=== PATIENT | female | born 1945 | race Caucasian/White ===

== ENCOUNTER 2016-06-05 08:43 | Outpatient (CLI) | payer MEDICARE, OTHER | END 2016-06-05 08:44 | disposition home or self-care (01) | DX: R73.01 Impaired fasting glucose (principal); E78.5 Hyperlipidemia, unspecified ==

== ENCOUNTER 2016-06-22 15:23 | Outpatient (CLI) | payer MEDICARE, OTHER | END 2016-06-22 15:24 | disposition home or self-care (01) | DX: R07.89 Other chest pain (principal); R06.02 Shortness of breath; I10 Essential (primary) hypertension ==

== ENCOUNTER 2016-08-06 09:34 | Outpatient (CLI) | payer MEDICARE, OTHER | END 2016-08-06 09:35 | disposition home or self-care (01) | DX: G47.8 Other sleep disorders (principal); I10 Essential (primary) hypertension; R06.02 Shortness of breath; E66.01 Morbid (severe) obesity due to excess calories; J45.909 Unspecified asthma, uncomplicated | CPT/HCPCS: 99204; G0463 ==

== ENCOUNTER 2016-10-01 08:44 | Outpatient (CLI) | payer MEDICARE, OTHER ==
--- NOTE | 2016-10-06 16:59 | Mammography Report ---
DIGITAL SCREENING MAMMOGRAM: 10/01/2016 CLINICAL INDICATION: A 71-year-old for screening. COMPARISON: 11/2013, 12/2010, 09/2007. TECHNIQUE: Routine CC and MLO projections were obtained of the breasts as well as bilateral laterall y exaggerated craniocaudal views. FINDINGS: The breasts again demonstrate scattered fibroglandular densities. Coarse and punctate, ty pically benign calcifications are present. No suspicious masses, clustered microcalcifications, or r egions of architectural distortion are identified. IMPRESSION: BENIGN FINDINGS. RECOMMENDATION: Routine annual screening unless otherwise clinically indicated. BI-RADS category 2, benign findings. STANDARD QUALIFYING STATEMENTS 1. This examination was reviewed with the aid of Computer-Aided Detection (CAD). 2. A negative or benign imaging report should not delay biopsy if clinically suspicious findings are present. Consider surgical consultation if warranted. More than 5% of cancers are not identified by i maging. 3. Dense breasts may obscure an underlying neoplasm. JOB #: [id number] EXT JOB #:[id number]
== END 2016-10-01 08:45 | disposition home or self-care (01) ==
LOC: DI 08:44
PROVIDERS: ATTEND Family Medicine
DX: Z12.31 Encounter for screening mammogram for malignant neoplasm of breast (principal)
CPT/HCPCS: 77067

== ENCOUNTER 2017-01-21 08:37 | Day surgery (SDC) | payer MEDICARE, OTHER ==
[~2017-01-21 08:37] MED LIST: BRIMONIDINE 0.2% OPHTH DROPS 5 ML ONE; CYCLOPENTOLATE 1% OPHTH DROPS 2 ML ONE; KETOROLAC 0.45% OPHTH DROPS ONE; PHENYLEPHRINE 2.5% OPHTH 2 ML DROPS ONE; PROPARACAINE 0.5% OPHTH DROPS 15 ML ONE; TIMOLOL 0.5% OPHTH DROPS ONE
[2017-01-21] MEDS ORDERED: LACTATED RINGERS 500 ML IV ONE (08:42)
[2017-01-21] MEDS ORDERED: PHENYLEPHRINE 2.5% OPHTH 2 ML DROPS OPTH ONE (09:08)
[2017-01-21] MEDS ORDERED: PROPARACAINE 0.5% OPHTH DROPS 15 ML OPTH ONE ×2 (09:08→09:30)
[2017-01-21] MEDS ORDERED: KETOROLAC 0.45% OPHTH DROPS OPTH ONE (09:08)
[2017-01-21] MEDS ORDERED: CYCLOPENTOLATE 1% OPHTH DROPS 2 ML OPTH ONE (09:08)
[2017-01-21] MEDS ORDERED: EPINEPHrine 1 MG/ML AMP IVP ONE (09:29)
[2017-01-21] MEDS ORDERED: BRIMONIDINE 0.2% OPHTH DROPS 5 ML OPTH ONE (09:29)
[2017-01-21] MEDS ORDERED: CHONDR SULF/HYALURONATE SYRINGE IO ONE (09:30)
[2017-01-21] MEDS ORDERED: fentaNYL 100 MCG/2 ML VIAL IVP ONE ×2 (09:30)
[2017-01-21] MEDS ORDERED: BSS/LIDOCAINE/EPINEPHRINE 1 ML SYRINGE IO ONE (09:30)
[2017-01-21] MEDS ORDERED: MIDAZOLAM 2 MG/2 ML VIAL IVP ONE ×2 (09:30)
[2017-01-21] MEDS ORDERED: TIMOLOL 0.5% OPHTH DROPS OPTH ONE (09:30)
[2017-01-21] MEDS ORDERED: TRIAMCIN/MOXIFLOX/VANCO 1 ML VIAL IO ONE (09:31)
[2017-01-21] MEDS: ONDANSETRON 4 MG/2 ML VIAL ONE ×2 (09:48→10:16)
[2017-01-21] MEDS ORDERED: ONDANSETRON 4 MG/2 ML VIAL ONE (10:18)
[2017-01-21] MEDS ORDERED: DEXAMETHASONE 4 MG/ML VIAL ONE (10:18)
[2017-01-21 10:47] VITALS: BP 122/57
--- NOTE | 2017-01-21 11:39 | OPERATIVE REPORT ---
DATE OF SURGERY: 01/21/2017 00:00:00 PREOPERATIVE DIAGNOSIS: Visually significant cataract, left eye. This was her first cataract surgery. Also, this is an amblyopic eye with probable vision potential to count fingers only. POSTOPERATIVE DIAGNOSIS: Visually significant cataract, left eye. This was her first cataract surgery also this is an amblyopic eye with probable vision potential to count fingers only. NAME OF PROCEDURE: Phacoemulsification posterior chamber intraocular lens implant, left eye. SURGEON: Jose Ramon Roberto MD. ANESTHESIA: Monitored anesthesia care. COMPLICATIONS: None. OPERATIVE INDICATIONS: This is a 71-year-old woman with progressive vision loss in the left eye due to 2+ nuclear sclerotic and 3+ cortical cataract. Best corrected visual acuity was count fingers at 2 feet. INDICATIONS FOR SURGERY: Overall decrease in vision, difficulty seeing words on a computer screen, difficulty seeing words or close captions on TV, difficulty seeing street signs, difficulty driving in low light or at night, difficulty driving because of headlights from other vehicles, and difficulty with glare or bright lights in any situation. She was consented at length concerning the risks and benefits of cataract surgery, after which she expressed a desire to proceed with surgery. OPERATIVE PROCEDURE: The patient was taken into OR #2 and placed under monitored anesthesia care. A surgical time-out was conducted confirming the correct patient, correct procedure and correct surgical site. She was given topical anesthesia and then prepped and draped in the usual sterile fashion. The eye was entered at the 6- and 3 o'clock positions. Intracameral Shugarcaine was injected into the anterior chamber followed by Viscoat. A continuous tear curvilinear capsulorrhexis was performed. The nucleus was hydrodissected and phacoemulsified. The cortex was evacuated using automated infusion aspiration. Provisc was injected into the capsular bag and a 10.5 diopter intraocular lens was inserted into the bag. Approximately 0.7 mL of a mixture of triamcinolone, moxifloxacin, and vancomycin was injected subconjunctivally in the superior quadrant for infection and inflammation prophylaxis. I/A was used to evacuate the viscoelastic materials. The eye was inflated to a physiologic pressure using balanced salt solution and found to be watertight. The patient was taken from the operating room in good condition and given postoperative instructions. JOB #: [id number] EXT JOB #:[id number] RAUL
== END 2017-01-21 08:38 | disposition home or self-care (01) ==
LOC: SDS 08:37
PROVIDERS: ATTEND Ophthalmology
PROC: 08RK3JZ Replacement of Left Lens with Synthetic Substitute, Percutaneous Approach (ICD-10-PCS; principal; 2017-01-21 09:45)
DX: H25.812 Combined forms of age-related cataract, left eye (principal); H53.002 Unspecified amblyopia, left eye; I10 Essential (primary) hypertension; J45.909 Unspecified asthma, uncomplicated; Z85.118 Personal history of other malignant neoplasm of bronchus and lung; Z87.891 Personal history of nicotine dependence; Z79.82 Long term (current) use of aspirin
CPT/HCPCS: 66984; A9270; J3490; V2632

== ENCOUNTER 2017-04-08 08:57 | Day surgery (SDC) | payer MEDICARE, OTHER ==
[~2017-04-08 08:57] MED LIST changes: -CYCLOPENTOLATE 1% OPHTH DROPS 2 ML ONE; -KETOROLAC 0.45% OPHTH DROPS ONE; -PHENYLEPHRINE 2.5% OPHTH 2 ML DROPS ONE; -PROPARACAINE 0.5% OPHTH DROPS 15 ML ONE
[2017-04-08] MEDS: LACTATED RINGERS 500 ML IV ONE (09:13)
[2017-04-08] MEDS: PHENYLEPHRINE 2.5% OPHTH 2 ML DROPS ONE (09:15)
[2017-04-08] MEDS: KETOROLAC 0.45% OPHTH DROPS ONE (09:15)
[2017-04-08] MEDS: CYCLOPENTOLATE 1% OPHTH DROPS 2 ML ONE (09:15)
[2017-04-08] MEDS: PROPARACAINE 0.5% OPHTH DROPS 15 ML ONE (09:15)
[2017-04-08] MEDS: SCOPOLAMINE PATCH TOP ONE (09:20)
[2017-04-08] MEDS: ONDANSETRON 4 MG/2 ML VIAL ONE (09:40)
[2017-04-08] MEDS: METOCLOPRAMIDE 10 MG/2 ML VIAL ONE (09:40)
[2017-04-08] MEDS: PROPARACAINE 0.5% OPHTH DROPS 15 ML RIGHTEYE ONE (09:57)
[2017-04-08] MEDS: BRIMONIDINE 0.2% OPHTH DROPS 5 ML OPTH ONE (09:58)
[2017-04-08] MEDS: BSS/LIDOCAINE/EPINEPHRINE 1 ML SYRINGE IO ONE ×2 (09:59)
[2017-04-08] MEDS: CHONDR SULF/HYALURONATE SYRINGE IO ONE (09:59)
[2017-04-08] MEDS: TIMOLOL 0.5% OPHTH DROPS OPTH ONE (09:59)
[2017-04-08] MEDS: TRIAMCIN/MOXIFLOX/VANCO 1 ML VIAL IO ONE ×2 (09:59)
[2017-04-08] MEDS ORDERED: PROPOFOL 200 MG/20 ML VIAL IVP ONE (10:00)
[2017-04-08] MEDS ORDERED: MIDAZOLAM 2 MG/2 ML VIAL IVP ONE (10:00)
[2017-04-08] MEDS: EPINEPHrine 1 MG/ML AMP IVP ONE (10:00)
[2017-04-08] MEDS ORDERED: LIDOCAINE-MPF 2% 5 ML VIAL IM ONE (10:00)
[2017-04-08 10:43] VITALS: BP 136/71
--- NOTE | 2017-04-08 10:50 | OPERATIVE REPORT ---
DATE OF SURGERY: 04/08/2017 00:00:00 PREOPERATIVE DIAGNOSIS: Visually significant cataract, right eye. Cataract surgery was performed on the left eye on 01/21/2017. POSTOPERATIVE DIAGNOSIS: Visually significant cataract, right eye. Cataract surgery was performed on the left eye on 01/21/2017. NAME OF PROCEDURE: Phacoemulsification posterior chamber intraocular lens implant, right eye. SURGEON: Jose Ramon Roberto MD ANESTHESIA: Monitored anesthesia care. COMPLICATIONS: None. OPERATIVE INDICATIONS: This is a 72-year-old woman with progressive vision loss in the right eye due to 2+ nuclear sclerotic and 2+ cortical cataract. Best corrected visual acuity was 20/30 with glare to 20/60 in the right eye. Indications for surgery were overall decrease in vision, difficulty seeing words on a computer screen, difficulty seeing words in closed captions on TV, difficulty seeing street signs, difficulty driving low light or at night, difficulty driving at night because of headlights from other vehicles, and difficulty with glare or bright lights in any situation. She was consented at length concerning the risks and benefits of cataract surgery after which she expressed a desire to proceed with surgery. OPERATIVE PROCEDURE: The patient was taken into OR #3 and placed under monitored anesthesia care. A surgical time-out was conducted confirming correct patient, correct procedure and correct surgical site. She was given topical anesthesia and then prepped and draped in the usual sterile fashion. The eye was entered at the 12 and 9 o'clock positions. Intracameral Shugarcaine was injected into the anterior chamber followed by Viscoat. A continuous tear curvilinear capsulorrhexis was performed. Nucleus was hydrodissected and phacoemulsified. The cortex was evacuated using automated infusion aspiration. Provisc was injected into the capsular bag, and an 18.5-diopter intraocular lens was inserted into the bag. Approximately 0.7 mL of a mixture of triamcinolone, moxifloxacin, and vancomycin was injected subconjunctivally in the superior quadrant for infection and inflammation prophylaxis. I/A was used to evacuate the viscoelastic materials. The eye was inflated to physiologic pressure using balanced salt solution and found to be watertight. The patient was taken from the operating room in good condition and given postoperative instructions. JOB #: [id number] EXT JOB #:[id number] [facility]
== END 2017-04-08 08:58 | disposition home or self-care (01) ==
LOC: SDS 08:57
PROVIDERS: ATTEND Ophthalmology
PROC: 08RJ3JZ Replacement of Right Lens with Synthetic Substitute, Percutaneous Approach (ICD-10-PCS; principal; 2017-04-08 10:00)
DX: H25.811 Combined forms of age-related cataract, right eye (principal); I25.10 Atherosclerotic heart disease of native coronary artery without angina pectoris; I11.9 Hypertensive heart disease without heart failure; I51.7 Cardiomegaly; E66.9 Obesity, unspecified; Z68.41 Body mass index [BMI] 40.0-44.9, adult; E78.5 Hyperlipidemia, unspecified; H53.002 Unspecified amblyopia, left eye; J45.909 Unspecified asthma, uncomplicated; Z85.118 Personal history of other malignant neoplasm of bronchus and lung
CPT/HCPCS: 66984; A9270; J3490; V2632

== ENCOUNTER 2017-09-13 10:01 | Outpatient (CLI) | payer MEDICARE, OTHER ==
--- NOTE | 2017-09-13 10:50 | XRAY Report ---
TWO VIEW CHEST: 09/13/2017 CLINICAL INDICATION: Chest pain. COMPARISON: 06/22/2016. FINDINGS: Frontal and lateral views of the chest demonstrate a normal cardiac silhouette. The lungs are clear. No effusion or pneumothorax. Postoperative changes in the right thorax are stable. IMPRESSION: NO SIGNIFICANT INTERVAL CHANGE. STABLE POSTOPERATIVE CHANGES. TD: 09/13/2017 10:49
== END 2017-09-13 10:02 | disposition home or self-care (01) ==
LOC: DI 10:01
PROVIDERS: ATTEND Family Medicine
DX: R07.9 Chest pain, unspecified (principal)
CPT/HCPCS: 71046

== ENCOUNTER 2017-11-18 08:42 | Outpatient (CLI) | payer MEDICARE, OTHER ==
[2017-11-18] MEDS ORDERED: REGADENOSON 0.4 MG/5 ML SYRINGE IVP ONE ×2 (11:14→12:33)
--- NOTE | 2017-11-18 12:26 | CARDIAC PROCEDURE NOTE ---
DATE OF SERVICE: 11/18/2017 Physician: EDWIGE Ocampo PRIMARY CARE PHYSICIAN: Dr. Kay Caba DICTATING MACHINE MECHANIC: Dr. Avendaño PROCEDURE: Pharmacologic cardiac stress test. PROCEDURE SYMPTOMS: Atypical chest pain. CARDIAC RISK FACTORS: Age, hypertension, hyperlipidemia. PREVIOUS CARDIAC PROCEDURES: MPS. CLINICAL HISTORY: A 72-year-old female without known coronary artery disease. The patient has asthma without wheezing today. INITIAL RESTING VITAL SIGNS: BP 164/84, heart rate 68, height 63 inches, weight 255 pounds, BMI 44.88. PROCEDURE AND FINDINGS: Patient identity and date verified. Consent signed. Pharmaceutical check. Pharmacologic stress testing was performed with Lexiscan at a dose of 0.4 mg over 10 seconds. The heart rate increased to 94 beats per minute from the infusion. Blood pressure response was labile, with resting systolic blood pressure going down to 104/60 before rebounding during the stress procedure. The patient was asymptomatic. The patient developed mild infusion-related symptoms, which included brief chest tightness, and resolved spontaneously. The resting ECG demonstrated normal sinus rhythm with no ST or T-wave changes. Maximum ST segment depression with stress was 0. There was no ectopy. FINAL IMPRESSIONS 1. Good quality test. 2. Negative electrocardiogram for ischemia in the setting of vasodilator stress. 3. Nondiagnostic stress test for angina. 4. No ectopy. 5. Await myocardial perfusion report. TD: 11/18/2017 11:57
--- NOTE | 2017-11-18 13:51 | Nuclear Medicine Report ---
Procedure Date: 11/18/2017 Accession Number: [id number] / [id number] Procedure: NM - Myocardial Perfusion STR/RST CPT Code: FULL RESULT: EXAM: SINGLE-ISOTOPE PHARMACOLOGICAL STRESS TEST WITH REGADENOSON. SINGLE-ISOTOPE AND TWO-DAY REST/STRESS MYOCARDIAL PERFUSION SCANS WITH TOMOGRAPHIC IMAGING, QUANTITATIVE ANALYSIS, WALL MOTION ANALYSIS AND CALCULATION OF EJECTION FRACTION. EXAM DATE: 11/18/2017 12:58 PM. CLINICAL HISTORY: CHEST PAIN. COMPARISON: Chest x-ray 09/13/2017. TECHNIQUE: A pharmacological stress was performed with the infusion of 0.4 mg regadenoson per protocol. According to protocol, 10 mCi of Tc-99m sestamibi was injected for stress myocardial perfusion scan. Motion correction was applied when appropriate. The following day after the intravenous administration of 41 mCi of Tc-99m sestamibi, a rest myocardial perfusion scan was done with tomography. Motion correction was applied when appropriate. Gated tomographic images were obtained for wall motion analysis and computation of left ventricular ejection fraction. FINDINGS: No fixed or reversible perfusion defects. Normal chamber size. Normal cardiac wall motion. Left ventricular ejection fraction is 78%, normal greater than 50%. IMPRESSION: 1. No scintigraphic findings to indicate myocardial ischemia. Negative for infarct. 2. Left ventricular ejection fraction of 78%. 3. Normal segmental and global wall motion. 4. Normal left ventricular cavity size, no change with stress. RADIA
[2017-11-18 17:29] VITALS: BP 154/72
== END 2017-11-18 08:43 | disposition home or self-care (01) ==
LOC: DI 08:42
PROVIDERS: ATTEND Family Medicine
DX: R07.9 Chest pain, unspecified (principal); I10 Essential (primary) hypertension; E78.5 Hyperlipidemia, unspecified
CPT/HCPCS: 78452; 93017; A9500; J2785

== ENCOUNTER 2018-03-03 08:16 | Outpatient (CLI) | payer MEDICARE, OTHER ==
[2018-03-03 09:22] LABS: HB2 TOTAL 14.5 g/dL; HEMOGLOBIN A1C 0.56 g/dL; HEMOGLOBIN A1C % 5.7 % (4.6-6.2)
[2018-03-03 09:53] LABS: CHOL/HDL RATIO 3.8 (<4.4); CHOLESTEROL 225 mg/dL; HDL CHOLESTEROL 59 mg/dL; LDL CHOLESTEROL,CALCULATED 151 mg/dL; LDL/HDL RATIO 2.6 (<4.4); VLDL CHOLESTEROL 15 mg/dL
[2018-03-03 09:55] LABS: THYROID STIMULATING HORMONE 2.22 uIU/mL (0.34-5.60)
== END 2018-03-03 08:17 | disposition home or self-care (01) ==
LOC: LAB 08:16
PROVIDERS: ATTEND Family Medicine
DX: E78.5 Hyperlipidemia, unspecified (principal); R73.01 Impaired fasting glucose; G31.84 Mild cognitive impairment of uncertain or unknown etiology
CPT/HCPCS: 80061; 82607; 83036; 83721; 84443

== ENCOUNTER 2018-09-14 07:28 | Outpatient (CLI) | payer MEDICARE, OTHER ==
[2018-09-14 08:13] LABS: CHOL/HDL RATIO 4.4 (<4.4); CHOLESTEROL 233 mg/dL; HDL CHOLESTEROL 53 mg/dL; LDL CHOLESTEROL,CALCULATED 158 mg/dL; VLDL CHOLESTEROL 22 mg/dL
[2018-09-14 08:22] LABS: HB2 TOTAL 15.7 g/dL; HEMOGLOBIN A1C 0.56 g/dL; HEMOGLOBIN A1C % 5.4 % (4.6-6.2)
== END 2018-09-14 07:29 | disposition home or self-care (01) ==
LOC: LAB 07:28
PROVIDERS: ATTEND Family Medicine
DX: I10 Essential (primary) hypertension (principal); E78.5 Hyperlipidemia, unspecified; R73.01 Impaired fasting glucose
CPT/HCPCS: 36415; 80053; 80061; 83036; 83721; 84443; 85025

== ENCOUNTER 2019-06-30 07:30 | Outpatient (CLI) | payer MEDICARE, OTHER ==
[2019-06-30 07:56] LABS: BASOPHILS # (AUTO) 0.1 10^3/uL (0.0-0.1); BASOPHILS % (AUTO) 0.8 %; EOSINOPHILS # (AUTO) 0.2 10^3/uL (0.0-0.7); EOSINOPHILS % (AUTO) 2.9 %; LYMPHOCYTES # (AUTO) 1.3 10^3/uL (1.5-3.5); LYMPHOCYTES % (AUTO) 16.8 %; MEAN CORPUSCULAR HEMOGLOBIN 31.4 pg (27.0-31.0); MEAN CORPUSCULAR HGB CONC 32.6 g/dL (32.0-36.0); MEAN CORPUSCULAR VOLUME 96.4 fL (81.0-99.0); MEAN PLATELET VOLUME 11.7 fL (7.9-10.8); MONOCYTES # (AUTO) 0.6 10^3/uL (0.0-1.0); MONOCYTES % (AUTO) 7.5 %; NEUTROPHILS # (AUTO) 5.7 10^3/uL (1.5-6.6); NEUTROPHILS % (AUTO) 71.5 %; PLT - PLATELET COUNT 213 10^3/uL (130-450); RED BLOOD COUNT 4.77 10^6/uL (4.20-5.40); RED CELL DISTRIBUTION WIDTH 13.2 % (12.0-15.0)
[2019-06-30 08:07] LABS: ALBUMIN 4.4 g/dL (3.2-5.5); ALBUMIN/GLOBULIN RATIO 1.3 (1.0-2.2); ALKALINE PHOSPHATASE 61 IU/L (42-121); ALT ALANINE AMINOTRANSFERASE 19 IU/L (10-60); AST ASPARTATE AMINOTRANSFERASE 19 IU/L (10-42); BILIRUBIN,TOTAL 0.7 mg/dL (0.2-1.0); BUN - BLOOD UREA NITROGEN 42 mg/dL (6-20); CALCIUM 9.8 mg/dL (8.5-10.3); CARBON DIOXIDE - CO2 26 mmol/L (21-32); CHLORIDE 101 mmol/L (101-111); CHOL/HDL RATIO 4.9 (<4.4); CHOLESTEROL 259 mg/dL; CREATININE 1.1 mg/dL (0.4-1.0); GFR - MDRD 49 (>89); GLUCOSE 108 mg/dL (70-100); HDL CHOLESTEROL 53 mg/dL; LDL CHOLESTEROL,CALCULATED 184 mg/dL; LDL/HDL RATIO 3.5 (<4.4); SODIUM 137 mmol/L (135-145); TOTAL PROTEIN 7.9 g/dL (6.7-8.2); VLDL CHOLESTEROL 22 mg/dL
[2019-06-30 08:22] LABS: HB2 TOTAL 15.7 g/dL; HEMOGLOBIN A1C 0.62 g/dL; HEMOGLOBIN A1C % 5.8 % (4.6-6.2)
== END 2019-06-30 07:31 | disposition home or self-care (01) ==
LOC: LAB 07:30
PROVIDERS: ATTEND Family Medicine
DX: F43.0 Acute stress reaction (principal); E78.5 Hyperlipidemia, unspecified; I10 Essential (primary) hypertension; R73.01 Impaired fasting glucose
CPT/HCPCS: 36415; 80053; 80061; 83036; 83721; 84443; 85025

== ENCOUNTER 2019-11-06 07:17 | Outpatient (CLI) | payer MEDICARE, OTHER ==
[2019-11-06 07:51] LABS: ALBUMIN 4.2 g/dL (3.2-5.5); ALBUMIN/GLOBULIN RATIO 1.4 (1.0-2.2); BILIRUBIN,TOTAL 0.7 mg/dL (0.2-1.0); CALCIUM 8.7 mg/dL (8.5-10.3); CREATININE 1.2 mg/dL (0.4-1.0); TOTAL PROTEIN 7.2 g/dL (6.7-8.2)
== END 2019-11-06 07:18 | disposition home or self-care (01) ==
LOC: LAB 07:17
PROVIDERS: ATTEND Family Medicine
DX: I10 Essential (primary) hypertension (principal)
CPT/HCPCS: 36415; 80053

== ENCOUNTER 2019-11-14 06:49 | Outpatient (CLI) | payer MEDICARE, OTHER ==
--- NOTE | 2019-11-14 10:24 | Ultrasound Report ---
PROCEDURE: Abdomen Complete INDICATIONS: CIRRHOSIS TECHNIQUE: Real-time scanning was performed of the abdominal and retroperitoneal organs, with image documentatio n. COMPARISON: None. FINDINGS: Liver: Liver is diffusely echogenic in echotexture without focal intrahepatic mass lesions. Liver siz e is normal. Gallbladder: There is a 4 mm gallbladder polyp, no wall thickening. No gallstones. No pericholecystic fluid. Negative sonographic Hawk's. Biliary ducts: Intrahepatic bile ducts are non-dilated. Extrahepatic bile duct caliber measures 5 m m. Normal is 6-7 mm or less in diameter, or 10 mm or less post-cholecystectomy. Pancreas: Visualized portions of the pancreas are sonographically normal. Spleen: Spleen is normal in size and homogeneous in echotexture. There are a few subcentimeter echog enic foci identified in the spleen. Kidneys: Kidneys are normal in size and echotexture. Right kidney measures 9.5 cm long; left kidney measures 10.1 cm long. No hydronephrosis or nephrolithiasis. No solid masses. Small right renal c ysts are noted. Largest measures approximately 12 mm in diameter. Aorta: Visualized segment of the aorta is normal in caliber at less than 3 cm. Iliacs: Proximal common iliac arteries are not visualized due to bowel gas. IVC: Intrahepatic inferior vena cava is patent. Miscellaneous: No free abdominal fluid. IMPRESSION: 1. Diffusely echogenic liver echotexture likely related to hepatic steatosis versus chronic hepatocel lular disease such as cirrhosis as reported to patient history. No focal intrahepatic masses. 2. Incidental note of a 4 mm gallbladder polyp. No dedicated follow-up imaging required. 3. Small right renal cysts. 4. A few nonspecific echogenic foci within the spleen. These may represent splenic calcifications or hemangiomas. However, other neoplastic processes both benign and malignant masses may have a similar appearance. Consider short interval follow-up imaging in [address] or MRI which can also be us ed to further characterize this finding at that time. Reviewed by: Judson Nogueira MD on 11/14/2019 10:23 AM PDT Approved by: Judson Nogueira MD on 11/14/2019 10:23 AM PDT Station ID: [id number]
== END 2019-11-14 06:50 | disposition home or self-care (01) ==
LOC: DI 06:49
PROVIDERS: ATTEND Nurse Practitioner
DX: K74.60 Unspecified cirrhosis of liver (principal); K82.4 Cholesterolosis of gallbladder; N28.1 Cyst of kidney, acquired
CPT/HCPCS: 76700

== ENCOUNTER 2020-09-04 08:00 | Outpatient (CLI) | payer MEDICARE, OTHER ==
[2020-09-04 08:21] LABS: BASOPHILS # (AUTO) 0.1 10^3/uL (0.0-0.1); BASOPHILS % (AUTO) 0.8 %; EOSINOPHILS # (AUTO) 1.2 10^3/uL (0.0-0.7); EOSINOPHILS % (AUTO) 12.2 %; HCT - HEMATOCRIT 41.8 % (37.0-47.0); HGB - HEMOGLOBIN 13.9 g/dL (12.0-16.0); LYMPHOCYTES # (AUTO) 1.6 10^3/uL (1.5-3.5); LYMPHOCYTES % (AUTO) 16.4 %; MEAN CORPUSCULAR HEMOGLOBIN 31.7 pg (27.0-31.0); MEAN CORPUSCULAR HGB CONC 33.3 g/dL (32.0-36.0); MEAN CORPUSCULAR VOLUME 95.2 fL (81.0-99.0); MEAN PLATELET VOLUME 10.8 fL (7.9-10.8); MONOCYTES # (AUTO) 0.7 10^3/uL (0.0-1.0); MONOCYTES % (AUTO) 6.8 %; NEUTROPHILS # (AUTO) 6.2 10^3/uL (1.5-6.6); NEUTROPHILS % (AUTO) 63.3 %; PLT - PLATELET COUNT 233 10^3/uL (130-450); RED BLOOD COUNT 4.39 10^6/uL (4.20-5.40); RED CELL DISTRIBUTION WIDTH 13.3 % (12.0-15.0); WHITE BLOOD COUNT 9.7 x10^3/uL (4.8-10.8)
[2020-09-04 08:22] LABS: SLIDE REVIEW? Indicated
[2020-09-04 08:40] LABS: RBC MORPHOLOGY (MULTIPLE) 2+ ANISOCYTOSIS (NORMAL)
[2020-09-04 08:41] LABS: ALBUMIN 4.3 g/dL (3.2-5.5); ALBUMIN/GLOBULIN RATIO 1.3 (1.0-2.2); ALKALINE PHOSPHATASE 62 IU/L (42-121); ALT ALANINE AMINOTRANSFERASE 16 IU/L (10-60); AST ASPARTATE AMINOTRANSFERASE 20 IU/L (10-42); BILIRUBIN,TOTAL 0.8 mg/dL (0.2-1.0); BUN - BLOOD UREA NITROGEN 25 mg/dL (6-20); CALCIUM 9.8 mg/dL (8.5-10.3); CARBON DIOXIDE - CO2 25 mmol/L (21-32); CHLORIDE 104 mmol/L (101-111); CHOL/HDL RATIO 5.6 (<4.4); CHOLESTEROL 284 mg/dL; CREATININE 1.1 mg/dL (0.4-1.0); GFR - MDRD 49 (>89); GLUCOSE 112 mg/dL (70-100); HDL CHOLESTEROL 51 mg/dL; LDL CHOLESTEROL,CALCULATED 212 mg/dL; LDL/HDL RATIO 4.2 (<4.4); POTASSIUM 4.7 mmol/L (3.5-5.0); SODIUM 138 mmol/L (135-145); TOTAL PROTEIN 7.7 g/dL (6.7-8.2); TRIGLYCERIDES 103 mg/dL; VLDL CHOLESTEROL 21 mg/dL
[2020-09-04 08:51] LABS: THYROID STIMULATING HORMONE 2.28 uIU/mL (0.34-5.60)
[2020-09-04 12:49] LABS: ESTIMATED AVERAGE GLUCOSE 114 mg/dL (70-100); HEMOGLOBIN A1c% 5.6 % (4.27-6.07)
== END 2020-09-04 08:01 | disposition home or self-care (01) ==
LOC: LAB 08:00
PROVIDERS: ATTEND Family Medicine
DX: I10 Essential (primary) hypertension (principal); E78.5 Hyperlipidemia, unspecified; R73.01 Impaired fasting glucose
CPT/HCPCS: 36415; 80053; 80061; 83036; 83721; 84443; 85025

== ENCOUNTER 2020-12-08 22:41 | Emergency (ER) | payer MEDICARE, OTHER ==
[2020-12-08 22:58] VITALS: BP 185/85
--- NOTE | 2020-12-08 23:59 | ED Physician Documentation ---
History of Present Illness - Stated complaint Stated Complaint: RT LEG FALLING ASLEEP/NAUSEA - Chief complaint Chief Complaint: Ext Problem - History obtained from History obtained from: Patient - Additonal information Additional information: 75yF with pmh lower back pain, herniated disc, p/w RLE numbness/tingling while lying in bed 20:00 that persisted after walking around. patient has had these sy mptoms before but is concerned because it's lasting longer. denies calf pain, swelilng, personal or FH clots, oral hormone use. no neuro deficit. patient did a lot of housework today and was up and down a lot. Review of Systems : denies: Incontinent Musculoskeletal: reports: Back pain (chornic, nonworsening) Neurologic: reports: Numbness. 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 HEENT: Cataracts - Present Medications Home Medications: Ambulatory Orders Medication Instructions Recorded Confirmed Aspirin [Aspir-Low] 81 mg PO DAILY 09/11/15 03/18/20 Chlorthalidone 12.5 mg PO BID 09/11/15 03/18/20 carvediloL [Coreg] 6.25 mg PO BID 09/11/15 03/18/20 Budesonide/Formoterol Fumarate 1 each INH BID 09/15/17 03/18/20 [Symbicort 80-4.5 Mcg Inhaler] Losartan [Cozaar] 100 mg PO DAILY 09/21/18 03/18/20 - Allergies Allergies/Adverse Reactions: Allergies Allergy/AdvReac Type Severity Reaction Status Date / Time No Known Drug Allergies Allergy Verified 12/08/20 22:58 - Social History Does the pt smoke?: No Smoking Status: Never smoker Does the pt drink ETOH?: No Does the pt have substance abuse?: No - Immunizations Immunizations are current?: Yes PD ED PE NORMAL - Vitals Vital signs reviewed: Yes - General General: Alert and oriented X 3, No acute distress, Well developed/nourished - HEENT HEENT: Atraumatic, PERRL, EOMI - Neck Neck: Supple, no meningeal sign - Cardiac Cardiac: RRR - Respiratory Respiratory: No respiratory distress, Clear bilaterally - Abdomen Abdomen: Non tender, Non distended - Back Back: No spinal TTP - Derm Derm: Normal color, Warm and dry - Extremities Extremities: No deformity - Neuro Neuro: Alert and oriented X 3, 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 Education given and strict return precautions given. she will follow up with her primary doctor Departure - Departure Disposition: 01 Home, Self Care Clinical Impression: Numbness and tingling of right leg Condition: Good Comments: You were seen in the emergency department for evaluation of tingling in the leg. You have no neurological deficits on physical exam and I have low suspicion for a blood clot at this time, but you should return right away if you develop any of the symptoms we discussed or if you have new or worsening symptoms or other concerns. Discharge Date/Time: 12/09/20 00:10
== END 2020-12-09 00:10 | disposition home or self-care (01) ==
LOC: ED 22:41
DX: R20.0 Anesthesia of skin (principal); R20.2 Paresthesia of skin; M54.5 Low back pain; G89.29 Other chronic pain; I73.9 Peripheral vascular disease, unspecified; I10 Essential (primary) hypertension; Z79.82 Long term (current) use of aspirin
CPT/HCPCS: 99281; 99282

== ENCOUNTER 2020-12-23 17:07 | Emergency (ER) | payer MEDICARE, OTHER ==
[2020-12-23 17:19] VITALS: BP 184/74
--- NOTE | 2020-12-23 19:09 | Ultrasound Report ---
PROCEDURE: Duplex Ext Veins Right INDICATIONS: RLE swelling TECHNIQUE: Real-time imaging, as well as color and pulse Doppler interrogation, were performed of the lower extr emity deep veins from the inguinal ligament to the popliteal fossa. COMPARISON: None. FINDINGS: The deep veins are normally compressible, and free of intraluminal thrombus. Color and pu lse Doppler demonstrate normal phasic intraluminal flow. There is normal augmentation response to di stal compression maneuver. IMPRESSION: No evidence of deep venous thrombosis, right lower extremity Reviewed by: Mark Jordan MD on 12/23/2020 6:08 PM [facility] Approved by: Mark Jordan MD on 12/23/2020 6:08 PM [facility] Station ID: [id number]
--- NOTE | 2020-12-23 19:12 | ED Physician Documentation ---
History of Present Illness - Stated complaint Stated Complaint: Right LEG SWELLING - Chief complaint Chief Complaint: Ext Problem - History obtained from History obtained from: Patient - History of Present Illness Timing: How many weeks ago (1) Pain level max: 3 Pain level now: 2 - Additonal information Additional information: Patient is a 75-year-old female who states that her right leg has been swollen for the past week. She states that it looks like she scraped her leg on something. Called her doctor to try to get an appointment and they told her to come here for potential DVT. Patient has no history of blood clots. No history of surgeries or immobilization recently. No recent travel. Review of Systems Constitutional: denies: Fever, Chills GI: denies: Vomiting Musculoskeletal: denies: Neck pain, Back pain Neurologic: denies: Headache PD PAST MEDICAL HISTORY - Past Medical History Cardiovascular: Hypertension, High cholesterol, Peripheral Vascular Disease Respiratory: Asthma, Sleep apnea Endocrine/Autoimmune: None GI: None : None HEENT: None Psych: Anxiety Musculoskeletal: Osteoarthritis, Chronic back pain Derm: None - Past Surgical History Past Surgical History: Yes General: Colonoscopy /[employer]: Tubal ligation HEENT: Cataracts - Present Medications Home Medications: Ambulatory Orders Medication Instructions Recorded Confirmed Aspirin [Aspir-Low] 81 mg PO DAILY 09/11/15 03/18/20 Chlorthalidone 12.5 mg PO BID 09/11/15 03/18/20 carvediloL [Coreg] 6.25 mg PO BID 09/11/15 03/18/20 Olmesartan Medoxomil [Benicar] 12/23/20 - Allergies Allergies/Adverse Reactions: Allergies Allergy/AdvReac Type Severity Reaction Status Date / Time No Known Drug Allergies Allergy Verified 12/23/20 17:53 - Social History Does the pt smoke?: No Smoking Status: Never smoker Does the pt drink ETOH?: No Does the pt have substance abuse?: No - Immunizations Immunizations are current?: Yes PD ED PE NORMAL - Vitals Vital signs reviewed: Yes - General General: Alert and oriented X 3, No acute distress - HEENT HEENT: Moist mucous membranes - Derm Derm: Warm and dry - Extremities Extremities: Other (mild tenderness posterior R calf, mild swelling. small ecchymosis to posterior aspect. no cord. NVI. LLE normal) - Neuro Neuro: Alert and oriented X 3 - Psych Psych: Normal mood, Normal affect Results - Vitals Vitals: Vital Signs - 24 hr 12/23/20 17:15 Temperature 36.5 C Heart Rate 90 Respiratory 16 Rate Blood Pressure 184/74 H O2 Saturation 98 Oxygen O2 Source Room air - Rads (name of study) Duplex ultrasound right lower extremity Radiology: Final report received, EMP read contemporaneously, See rad report (No DVT) PD MEDICAL DECISION MAKING - ED course Complexity details: reviewed results, re-evaluated patient, considered di fferential, d/w patient ED course: No acute abnormality on ultrasound. Appears to have a small amount of ecchymosis consistent with an abrasion to the back of the leg. We will have the patient follow-up with her doctor for further care. Patient counseled regarding signs and symptoms for which I believe and urgent re-evaluation would be necessary. Patient with good understanding of and agreement to plan and is comfortable going home at this time This document was made in part using voice recognition software. While efforts are made to proofread this document, sound alike and grammatical errors may occur. No DVT. No cellulitis. No bony injury. No Achilles injury. Departure - Departure Disposition: 01 Home, Self Care Clinical Impression: Right leg swelling Condition: Good Instructions: ED Leg Swelling Unilateral Follow-Up: Kay Caba DO [Primary Care Provider] - Within 1 week Comments: Thankfully there is no blood clot on your ultrasound tonight. Continue to elevate the leg whenever possible. Follow-up with your doctor for further care. Return if you worsen. Discharge Date/Time: 12/23/20 19:55
== END 2020-12-23 19:55 | disposition home or self-care (01) ==
LOC: ED 17:07
DX: R22.41 Localized swelling, mass and lump, right lower limb (principal); S80.811A Abrasion, right lower leg, initial encounter; X58.XXXA Exposure to other specified factors, initial encounter; I73.9 Peripheral vascular disease, unspecified; I10 Essential (primary) hypertension; Z79.82 Long term (current) use of aspirin
CPT/HCPCS: 99282; 99284

== ENCOUNTER 2021-11-06 08:00 | Outpatient (CLI) | payer MEDICARE, OTHER ==
[2021-11-12 01:07] LABS: METANEPHRINE URINE 42 ug/L (Undefined); METANEPHRINE URINE 24HR 90 ug/24 hr (36-209); NORMETANEPHRINE URINE 158 ug/L (Undefined); NORMETANEPHRINE URINE 24HR 340 ug/24 hr (131-612)
== END 2021-11-06 23:59 | disposition home or self-care (01) ==
LOC: LAB.R 08:00
PROVIDERS: ATTEND Internal Medicine
DX: R09.89 Other specified symptoms and signs involving the circulatory and respiratory systems (principal)
CPT/HCPCS: 81599; 82384; 83835

== ENCOUNTER 2022-02-13 08:00 | Outpatient (CLI) | payer MEDICARE, OTHER ==
--- NOTE | 2022-02-13 16:10 | XRAY Report ---
PROCEDURE: Hip 2 View LT INDICATIONS: LEFT HIP PAIN TECHNIQUE: AP pelvis and 2 views of the left hip. COMPARISON: CT abdomen pelvis 01/11/2020. FINDINGS: Bones: No fractures or dislocations. No suspicious bony lesions. Moderate joint space bilaterally. Acetabular roof sclerosis. Small osteophytes. The visualized pelvic ring appears intact. Soft tissues: No suspicious soft tissue calcifications or masses. IMPRESSION: Moderate bilateral hip DJD. Reviewed by: Andrea Greer MD on 02/13/2022 4:08 PM PDT Approved by: Andrea Greer MD on 02/13/2022 4:08 PM PDT Station ID: [id number]
== END 2022-02-13 23:59 | disposition home or self-care (01) ==
LOC: DI.WOS 08:00
PROVIDERS: ATTEND Physician Assistant
DX: M16.0 Bilateral primary osteoarthritis of hip (principal)

== ENCOUNTER 2022-03-09 10:23 | Outpatient (CLI) | payer MEDICARE, OTHER ==
[2022-03-09 15:54] LABS: BASOPHILS # (AUTO) 0.1 10^3/uL (0.0-0.1); EOSINOPHILS # (AUTO) 0.5 10^3/uL (0.0-0.7); EOSINOPHILS % (AUTO) 5.9 %; HCT - HEMATOCRIT 43.4 % (37.0-47.0); HGB - HEMOGLOBIN 14.2 g/dL (12.0-16.0); LYMPHOCYTES # (AUTO) 1.2 10^3/uL (1.5-3.5); LYMPHOCYTES % (AUTO) 15.8 %; MEAN CORPUSCULAR HEMOGLOBIN 30.8 pg (27.0-31.0); MEAN CORPUSCULAR HGB CONC 32.7 g/dL (32.0-36.0); MEAN CORPUSCULAR VOLUME 94.1 fL (81.0-99.0); MEAN PLATELET VOLUME 11.8 fL (7.9-10.8); MONOCYTES # (AUTO) 0.7 10^3/uL (0.0-1.0); MONOCYTES % (AUTO) 8.3 %; NEUTROPHILS # (AUTO) 5.4 10^3/uL (1.5-6.6); NEUTROPHILS % (AUTO) 68.2 %; PLT - PLATELET COUNT 235 10^3/uL (130-450); RED BLOOD COUNT 4.61 10^6/uL (4.20-5.40); RED CELL DISTRIBUTION WIDTH 13.3 % (12.0-15.0); WHITE BLOOD COUNT 7.9 x10^3/uL (4.8-10.8)
[2022-03-09 16:08] LABS: ALBUMIN 4.1 g/dL (3.2-5.5); ALBUMIN/GLOBULIN RATIO 1.2 (1.0-2.2); ALKALINE PHOSPHATASE 69 IU/L (42-121); ALT ALANINE AMINOTRANSFERASE 19 IU/L (10-60); AST ASPARTATE AMINOTRANSFERASE 36 IU/L (10-42); BILIRUBIN,TOTAL 0.8 mg/dL (0.2-1.0); BUN - BLOOD UREA NITROGEN 19 mg/dL (6-20); CALCIUM 9.3 mg/dL (8.5-10.3); CARBON DIOXIDE - CO2 24 mmol/L (21-32); CHLORIDE 99 mmol/L (101-111); CHOLESTEROL 231 mg/dL; CREATININE 1.1 mg/dL (0.4-1.0); GFR - MDRD 48 (>89); GLUCOSE 96 mg/dL (70-100); HDL CHOLESTEROL 58 mg/dL; LDL CHOLESTEROL,CALCULATED 155 mg/dL; LDL/HDL RATIO 2.7 (<4.4); POTASSIUM 4.4 mmol/L (3.5-5.0); SODIUM 133 mmol/L (135-145); TOTAL PROTEIN 7.6 g/dL (6.7-8.2); TRIGLYCERIDES 90 mg/dL; VLDL CHOLESTEROL 18 mg/dL
[2022-03-09 16:40] LABS: THYROID STIMULATING HORMONE 1.78 uIU/mL (0.34-5.60)
[2022-03-10 05:10] LABS: HCV AB <0.1 s/co ratio (0.0-0.9)
[2022-03-11 16:08] LABS: ANTINUCLEAR ANTIBODIES IFA Positive (.)
== END 2022-03-09 23:59 | disposition home or self-care (01) ==
LOC: LAB.R 10:23
PROVIDERS: ATTEND Internal Medicine
DX: Z00.00 Encounter for general adult medical examination without abnormal findings (principal); R09.89 Other specified symptoms and signs involving the circulatory and respiratory systems; C34.90 Malignant neoplasm of unspecified part of unspecified bronchus or lung; G62.9 Polyneuropathy, unspecified; M79.605 Pain in left leg; J30.2 Other seasonal allergic rhinitis; Z11.59 Encounter for screening for other viral diseases; Z79.899 Other long term (current) drug therapy
CPT/HCPCS: 80053; 80061; 82607; 83721; 84443; 85025; 86038; 86803

== ENCOUNTER 2022-04-20 09:48 | Outpatient (CLI) | payer MEDICARE, OTHER ==
--- NOTE | 2022-04-20 10:33 | XRAY Report ---
PROCEDURE: Tib/Fib LT INDICATIONS: LEFT LEG PAIN TECHNIQUE: 2 views of the tibia and fibula were acquired. COMPARISON: None FINDINGS: Bones: No fractures or dislocations. No suspicious bony lesions. Soft tissues: No suspicious soft tissue calcifications or masses. Moderate atherosclerotic vascular calcification. IMPRESSION: No suspicious bony abnormalities. Reviewed by: Gabrielle Garcia MD on 04/20/2022 10:32 AM [facility] Approved by: Gabrielle Garcia MD on 04/20/2022 10:32 AM [facility] Station ID: [id number]
== END 2022-04-20 09:49 | disposition home or self-care (01) ==
LOC: DI 09:48
PROVIDERS: ATTEND Internal Medicine Rheumatology
DX: M79.605 Pain in left leg (principal)

== ENCOUNTER 2022-04-30 18:19 | Outpatient (CLI) | payer MEDICARE, OTHER | END 2022-04-30 18:20 | disposition EMS.NT | LOC: EMS 18:19 | DX: M79.662 Pain in left lower leg (principal) ==

== ENCOUNTER 2022-05-03 23:57 | Outpatient (CLI) | payer MEDICARE, OTHER | END 2022-05-03 23:58 | disposition critical access hospital (66) | LOC: EMS 23:57 | DX: M79.605 Pain in left leg (principal); R20.8 Other disturbances of skin sensation | CPT/HCPCS: A0425; A0429 ==

== ENCOUNTER 2022-05-04 00:07 | Emergency (ER) | payer MEDICARE, OTHER ==
--- OUTSIDE RECORDS SUMMARY | 2022-05-04 00:19 | EXTERNAL MEDICAL SUMMARY RPT | Continuity of Care Document ---
:1945 Author Organization [facility] Address [address] [place] [address] Phone Care Team Providers Name Role Phone Unavailable Unavailable Unavailable [facility] Unavailable Unavailable Shirley, Provider Unavailable Unavailable Allergies No information. Encounters No information. Functional Status No information. Immunizations No information. Medications No information. Problems date description facility 2022-02-12 00:00 Hip pain All 2022-02-12 00:00 Hip pain All 2022-02-12 00:00 Pain in joint involving pelvic region a nd thigh All 2022-02-12 00:00 Pain in joint involving pelvic region a nd thigh All 2022-02-12 00:00 Pain in left hip All 2022-02-12 00:00 Pain in left hip All 2022-02-25 00:00 Other and unspecified hyperlipidemia A 2022-02-25 00:00 Hypertensive disorder All 2022-02-25 00:00 Benign essential hypertension All 2022-02-25 00:00 Unspecified essential hypertension All 2022-02-25 00:00 Hyperlipidemia All 2022-02-25 00:00 Hyperlipidemia, unspecified All 2022-02-25 00:00 Essential (primary) hypertension All 2022-03-09 00:00 Other and unspecified hyperlipidemia A 2022-03-09 00:00 Hypertensive disorder All 2022-03-09 00:00 Benign essential hypertension All 2022-03-09 00:00 Unspecified essential hypertension All 2022-03-09 00:00 Hyperlipidemia All 2022-03-09 00:00 Hyperlipidemia, unspecified All 2022-03-09 00:00 Essential (primary) hypertension All 2022-03-10 00:00 Other and unspecified hyperlipidemia A 2022-03-10 00:00 Hypertensive disorder All 2022-03-10 00:00 Benign essential hypertension All 2022-03-10 00:00 Unspecified essential hypertension All 2022-03-10 00:00 Hyperlipidemia All 2022-03-10 00:00 Hyperlipidemia, unspecified All 2022-03-10 00:00 Essential (primary) hypertension All 2022-03-11 00:00 Other and unspecified hyperlipidemia A ll 2022-03-11 00:00 Hypertensive disorder All 2022-03-11 00:00 Benign essential hypertension All 2022-03-11 00:00 Unspecified essential hypertension All 2022-03-11 00:00 Hyperlipidemia All 2022-03-11 00:00 Hyperlipidemia, unspecified All 2022-03-11 00:00 Essential (primary) hypertension All 2022-03-12 00:00 Other and unspecified hyperlipidemia A ll 2022-03-12 00:00 Hypertensive disorder All 2022-03-12 00:00 Benign essential hypertension All 2022-03-12 00:00 Unspecified essential hypertension All 2022-03-12 00:00 Hyperlipidemia All 2022-03-12 00:00 Hyperlipidemia, unspecified All 2022-03-12 00:00 Essential (primary) hypertension All Procedures date description facility 2022-02-12 00:00 XR HIP UNILATERAL COMPL 2-3 VIEWS All 2022-02-12 00:00 XR HIP UNILATERAL COMPL 2-3 VIEWS All Results/Labs test date author facility value unit interpret ation Result panel 1 (unknown) (no date) (unknown) All (no value) (units unknown ) (unknown) Result panel 2 (unknown) (no date) (unknown) All (no value) (units unknown ) (unknown) Result panel 3 (unknown) (no date) (unknown) All (no value) (units unknown ) (unknown) Result panel 4 (unknown) (no date) (unknown) All (no value) (units unknown ) (unknown) Result panel 5 (unknown) (no date) (unknown) All (no value) (units unknown ) (unknown) Result panel 6 (unknown) (no date) (unknown) All (no value) (units unknown ) (unknown) Result panel 7 (unknown) (no date) (unknown) All (no value) (units unknown ) (unknown) Result panel 8 (unknown) (no date) (unknown) All (no value) (units unknown ) (unknown) Result panel 9 (unknown) (no date) (unknown) All (no value) (units unknown ) (unknown) Result panel 10 (unknown) (no date) (unknown) All (no value) (units unknown ) (unknown) Result panel 11 (unknown) (no date) (unknown) All (no value) (units unknown ) (unknown) Result panel 12 (unknown) (no date) (unknown) All (no value) (units unknown ) (unknown) Result panel 13 (unknown) (no date) (unknown) All (no value) (units unknown ) (unknown) Result panel 14 (unknown) (no date) (unknown) All (no value) (units unknown ) (unknown) Result panel 15 (unknown) (no date) (unknown) All (no value) (units unknown ) (unknown) Result panel 16 (unknown) (no date) (unknown) All (no value) (units unknown ) (unknown) Result panel 17 (unknown) (no date) (unknown) All (no value) (units unknown ) (unknown) Result panel 18 (unknown) (no date) (unknown) All (no value) (units unknown ) (unknown) Result panel 19 (unknown) (no date) (unknown) All (no value) (units unknown ) (unknown) Result panel 20 (unknown) (no date) (unknown) All (no value) (units unknown ) (unknown) Result panel 21 (unknown) (no date) (unknown) All (no value) (units unknown ) (unknown) Result panel 22 (unknown) (no date) (unknown) All (no value) (units unknown ) (unknown) Result panel 23 (unknown) (no date) (unknown) All (no value) (units unknown ) (unknown) Result panel 24 (unknown) (no date) (unknown) All (no value) (units unknown ) (unknown) Result panel 25 (unknown) (no date) (unknown) All (no value) (units unknown ) (unknown) Result panel 26 (unknown) (no date) (unknown) All (no value) (units unknown ) (unknown) Result panel 27 (unknown) (no date) (unknown) All (no value) (units unknown ) (unknown) Result panel 28 (unknown) (no date) (unknown) All (no value) (units unknown ) (unknown) Result panel 29 (unknown) (no date) (unknown) All (no value) (units unknown ) (unknown) Result panel 30 (unknown) (no date) (unknown) All (no value) (units unknown ) (unknown) Result panel 31 (unknown) (no date) (unknown) All (no value) (units unknown ) (unknown) Result panel 32 (unknown) (no date) (unknown) All (no value) (units unknown ) (unknown) Result panel 33 (unknown) (no date) (unknown) All (no value) (units unknown ) (unknown) Result panel 34 (unknown) (no date) (unknown) All (no value) (units unknown ) (unknown) Result panel 35 (unknown) (no date) (unknown) All (no value) (units unknown ) (unknown) Result panel 36 (unknown) (no date) (unknown) All (no value) (units unknown ) (unknown) Result panel 37 (unknown) (no date) (unknown) All (no value) (units unknown ) (unknown) Result panel 38 (unknown) (no date) (unknown) All (no value) (units unknown ) (unknown) Result panel 39 (unknown) (no date) (unknown) All (no value) (units unknown ) (unknown) Result panel 40 (unknown) (no date) (unknown) All (no value) (units unknown ) (unknown) Result panel 41 (unknown) (no date) (unknown) All (no value) (units unknown ) (unknown) Result panel 42 (unknown) (no date) (unknown) All (no value) (units unknown ) (unknown) Result panel 43 (unknown) (no date) (unknown) All (no value) (units unknown ) (unknown) Result panel 44 (unknown) (no date) (unknown) All (no value) (units unknown ) (unknown) Result panel 45 (unknown) (no date) (unknown) All (no value) (units unknown ) (unknown) Result panel 46 (unknown) (no date) (unknown) All (no value) (units unknown ) (unknown) Result panel 47 (unknown) (no date) (unknown) All (no value) (units unknown ) (unknown) Result panel 48 (unknown) (no date) (unknown) All (no value) (units unknown ) (unknown) Result panel 49 (unknown) (no date) (unknown) All (no value) (units unknown ) (unknown) Result panel 50 (unknown) (no date) (unknown) All (no value) (units unknown ) (unknown) Result panel 51 (unknown) (no date) (unknown) All (no value) (units unknown ) (unknown) Result panel 52 (unknown) (no date) (unknown) All (no value) (units unknown ) (unknown) Result panel 53 (unknown) (no date) (unknown) All (no value) (units unknown ) (unknown) Result panel 54 (unknown) (no date) (unknown) All (no value) (units unknown ) (unknown) Result panel 55 (unknown) (no date) (unknown) All (no value) (units unknown ) (unknown) Result panel 56 (unknown) (no date) (unknown) All (no value) (units unknown ) (unknown) Result panel 57 (unknown) (no date) (unknown) All (no value) (units unknown ) (unknown) Result panel 58 (unknown) (no date) (unknown) All (no value) (units unknown ) (unknown) Result panel 59 (unknown) (no date) (unknown) All (no value) (units unknown ) (unknown) Result panel 60 (unknown) (no date) (unknown) All (no value) (units unknown ) (unknown) Result panel 61 (unknown) (no date) (unknown) All (no value) (units unknown ) (unknown) Result panel 62 (unknown) (no date) (unknown) All (no value) (units unknown ) (unknown) Result panel 63 (unknown) (no date) (unknown) All (no value) (units unknown ) (unknown) Result panel 64 (unknown) (no date) (unknown) All (no value) (units unknown ) (unknown) Result panel 65 (unknown) (no date) (unknown) All (no value) (units unknown ) (unknown) Result panel 66 (unknown) (no date) (unknown) All (no value) (units unknown ) (unknown) Result panel 67 (unknown) (no date) (unknown) All (no value) (units unknown ) (unknown) Result panel 68 (unknown) (no date) (unknown) All (no value) (units unknown ) (unknown) Result panel 69 (unknown) (no date) (unknown) All (no value) (units unknown ) (unknown) Result panel 70 (unknown) (no date) (unknown) All (no value) (units unknown ) (unknown) Result panel 71 (unknown) (no date) (unknown) All (no value) (units unknown ) (unknown) Result panel 72 (unknown) (no date) (unknown) All (no value) (units unknown ) (unknown) Result panel 73 (unknown) (no date) (unknown) All (no value) (units unknown ) (unknown) Result panel 74 (unknown) (no date) (unknown) All (no value) (units unknown ) (unknown) Result panel 75 (unknown) (no date) (unknown) All (no value) (units unknown ) (unknown) Result panel 76 (unknown) (no date) (unknown) All (no value) (units unknown ) (unknown) Result panel 77 (unknown) (no date) (unknown) All (no value) (units unknown ) (unknown) Result panel 78 (unknown) (no date) (unknown) All (no value) (units unknown ) (unknown) Result panel 79 (unknown) (no date) (unknown) All (no value) (units unknown ) (unknown) Result panel 80 (unknown) (no date) (unknown) All (no value) (units unknown ) (unknown) Result panel 81 (unknown) (no date) (unknown) All (no value) (units unknown ) (unknown) Result panel 82 (unknown) (no date) (unknown) All (no value) (units unknown ) (unknown) Result panel 83 (unknown) (no date) (unknown) All (no value) (units unknown ) (unknown) Result panel 84 (unknown) (no date) (unknown) All (no value) (units unknown ) (unknown) Result panel 85 (unknown) (no date) (unknown) All (no value) (units unknown ) (unknown) Result panel 86 (unknown) (no date) (unknown) All (no value) (units unknown ) (unknown) Result panel 87 (unknown) (no date) (unknown) All (no value) (units unknown ) (unknown) Result panel 88 (unknown) (no date) (unknown) All (no value) (units unknown ) (unknown) Result panel 89 (unknown) (no date) (unknown) All (no value) (units unknown ) (unknown) Result panel 90 (unknown) (no date) (unknown) All (no value) (units unknown ) (unknown) Result panel 91 (unknown) (no date) (unknown) All (no value) (units unknown ) (unknown) Result panel 92 (unknown) (no date) (unknown) All (no value) (units unknown ) (unknown) Result panel 93 (unknown) (no date) (unknown) All (no value) (units unknown ) (unknown) Result panel 94 (unknown) (no date) (unknown) All (no value) (units unknown ) (unknown) Result panel 95 (unknown) (no date) (unknown) All (no value) (units unknown ) (unknown) Result panel 96 (unknown) (no date) (unknown) All (no value) (units unknown ) (unknown) Result panel 97 (unknown) (no date) (unknown) All (no value) (units unknown ) (unknown) Result panel 98 (unknown) (no date) (unknown) All (no value) (units unknown ) (unknown) Result panel 99 (unknown) (no date) (unknown) All (no value) (units unknown ) (unknown) Result panel 100 (unknown) (no date) (unknown) All (no value) (units unknown ) (unknown) Result panel 101 (unknown) (no date) (unknown) All (no value) (units unknown ) (unknown) Result panel 102 (unknown) (no date) (unknown) All (no value) (units unknown ) (unknown) Result panel 103 (unknown) (no date) (unknown) All (no value) (units unknown ) (unknown) Result panel 104 (unknown) (no date) (unknown) All (no value) (units unknown ) (unknown) Result panel 105 (unknown) (no date) (unknown) All (no value) (units unknown ) (unknown) Result panel 106 (unknown) (no date) (unknown) All (no value) (units unknown ) (unknown) Result panel 107 (unknown) (no date) (unknown) All (no value) (units unknown ) (unknown) Result panel 108 (unknown) (no date) (unknown) All (no value) (units unknown ) (unknown) Result panel 109 (unknown) (no date) (unknown) All (no value) (units unknown ) (unknown) Result panel 110 (unknown) (no date) (unknown) All (no value) (units unknown ) (unknown) Result panel 111 (unknown) (no date) (unknown) All (no value) (units unknown ) (unknown) Result panel 112 (unknown) (no date) (unknown) All (no value) (units unknown ) (unknown) Result panel 113 (unknown) (no date) (unknown) All (no value) (units unknown ) (unknown) Result panel 114 (unknown) (no date) (unknown) All (no value) (units unknown ) (unknown) Result panel 115 (unknown) (no date) (unknown) All (no value) (units unknown ) (unknown) Result panel 116 (unknown) (no date) (unknown) All (no value) (units unknown ) (unknown) Result panel 117 (unknown) (no date) (unknown) All (no value) (units unknown ) (unknown) Result panel 118 (unknown) (no date) (unknown) All (no value) (units unknown ) (unknown) Result panel 119 (unknown) (no date) (unknown) All (no value) (units unknown ) (unknown) Result panel 120 (unknown) (no date) (unknown) All (no value) (units unknown ) (unknown) Result panel 121 (unknown) (no date) (unknown) All (no value) (units unknown ) (unknown) Result panel 122 (unknown) (no date) (unknown) All (no value) (units unknown ) (unknown) Result panel 123 (unknown) (no date) (unknown) All (no value) (units unknown ) (unknown) Result panel 124 (unknown) (no date) (unknown) All (no value) (units unknown ) (unknown) Result panel 125 (unknown) (no date) (unknown) All (no value) (units unknown ) (unknown) Result panel 126 (unknown) (no date) (unknown) All (no value) (units unknown ) (unknown) Result panel 127 (unknown) (no date) (unknown) All (no value) (units unknown ) (unknown) Result panel 128 (unknown) (no date) (unknown) All (no value) (units unknown ) (unknown) Result panel 129 (unknown) (no date) (unknown) All (no value) (units unknown ) (unknown) Result panel 130 (unknown) (no date) (unknown) All (no value) (units unknown ) (unknown) Result panel 131 (unknown) (no date) (unknown) All (no value) (units unknown ) (unknown) Result panel 132 (unknown) (no date) (unknown) All (no value) (units unknown ) (unknown) Result panel 133 (unknown) (no date) (unknown) All (no value) (units unknown ) (unknown) Result panel 134 (unknown) (no date) (unknown) All (no value) (units unknown ) (unknown) Result panel 135 (unknown) (no date) (unknown) All (no value) (units unknown ) (unknown) Result panel 136 (unknown) (no date) (unknown) All (no value) (units unknown ) (unknown) Result panel 137 (unknown) (no date) (unknown) All (no value) (units unknown ) (unknown) Result panel 138 (unknown) (no date) (unknown) All (no value) (units unknown ) (unknown) Result panel 139 (unknown) (no date) (unknown) All (no value) (units unknown ) (unknown) Result panel 140 (unknown) (no date) (unknown) All (no value) (units unknown ) (unknown) Result panel 141 (unknown) (no date) (unknown) All (no value) (units unknown ) (unknown) Result panel 142 (unknown) (no date) (unknown) All (no value) (units unknown ) (unknown) Result panel 143 (unknown) (no date) (unknown) All (no value) (units unknown ) (unknown) Result panel 144 (unknown) (no date) (unknown) All (no value) (units unknown ) (unknown) Result panel 145 (unknown) (no date) (unknown) All (no value) (units unknown ) (unknown) Result panel 146 (unknown) (no date) (unknown) All (no value) (units unknown ) (unknown) Result panel 147 (unknown) (no date) (unknown) All (no value) (units unknown ) (unknown) Result panel 148 (unknown) (no date) (unknown) All (no value) (units unknown ) (unknown) Result panel 149 (unknown) (no date) (unknown) All (no value) (units unknown ) (unknown) Result panel 150 (unknown) (no date) (unknown) All (no value) (units unknown ) (unknown) Result panel 151 (unknown) (no date) (unknown) All (no value) (units unknown ) (unknown) Result panel 152 (unknown) (no date) (unknown) All (no value) (units unknown ) (unknown) Result panel 153 (unknown) (no date) (unknown) All (no value) (units unknown ) (unknown) Result panel 154 (unknown) (no date) (unknown) All (no value) (units unknown ) (unknown) Result panel 155 (unknown) (no date) (unknown) All (no value) (units unknown ) (unknown) Result panel 156 (unknown) (no date) (unknown) All (no value) (units unknown ) (unknown) Result panel 157 (unknown) (no date) (unknown) All (no value) (units unknown ) (unknown) Result panel 158 (unknown) (no date) (unknown) All (no value) (units unknown ) (unknown) Result panel 159 (unknown) (no date) (unknown) All (no value) (units unknown ) (unknown) Result panel 160 (unknown) (no date) (unknown) All (no value) (units unknown ) (unknown) Result panel 161 (unknown) (no date) (unknown) All (no value) (units unknown ) (unknown) Result panel 162 (unknown) (no date) (unknown) All (no value) (units unknown ) (unknown) Result panel 163 (unknown) (no date) (unknown) All (no value) (units unknown ) (unknown) Result panel 164 (unknown) (no date) (unknown) All (no value) (units unknown ) (unknown) Result panel 165 (unknown) (no date) (unknown) All (no value) (units unknown ) (unknown) Result panel 166 (unknown) (no date) (unknown) All (no value) (units unknown ) (unknown) Result panel 167 (unknown) (no date) (unknown) All (no value) (units unknown ) (unknown) Result panel 168 (unknown) (no date) (unknown) All (no value) (units unknown ) (unknown) Result panel 169 (unknown) (no date) (unknown) All (no value) (units unknown ) (unknown) Result panel 170 (unknown) (no date) (unknown) All (no value) (units unknown ) (unknown) Result panel 171 (unknown) (no date) (unknown) All (no value) (units unknown ) (unknown) Result panel 172 (unknown) (no date) (unknown) All (no value) (units unknown ) (unknown) Result panel 173 (unknown) (no date) (unknown) All (no value) (units unknown ) (unknown) Result panel 174 (unknown) (no date) (unknown) All (no value) (units unknown ) (unknown) Result panel 175 (unknown) (no date) (unknown) All (no value) (units unknown ) (unknown) Result panel 176 (unknown) (no date) (unknown) All (no value) (units unknown ) (unknown) Result panel 177 (unknown) (no date) (unknown) All (no value) (units unknown ) (unknown) Result panel 178 (unknown) (no date) (unknown) All (no value) (units unknown ) (unknown) Result panel 179 (unknown) (no date) (unknown) All (no value) (units unknown ) (unknown) Result panel 180 (unknown) (no date) (unknown) All (no value) (units unknown ) (unknown) Result panel 181 (unknown) (no date) (unknown) All (no value) (units unknown ) (unknown) Result panel 182 (unknown) (no date) (unknown) All (no value) (units unknown ) (unknown) Result panel 183 (unknown) (no date) (unknown) All (no value) (units unknown ) (unknown) Result panel 184 (unknown) (no date) (unknown) All (no value) (units unknown ) (unknown) Result panel 185 (unknown) (no date) (unknown) All (no value) (units unknown ) (unknown) Result panel 186 (unknown) (no date) (unknown) All (no value) (units unknown ) (unknown) Result panel 187 (unknown) (no date) (unknown) All (no value) (units unknown ) (unknown) Result panel 188 (unknown) (no date) (unknown) All (no value) (units unknown ) (unknown) Result panel 189 (unknown) (no date) (unknown) All (no value) (units unknown ) (unknown) Result panel 190 (unknown) (no date) (unknown) All (no value) (units unknown ) (unknown) Result panel 191 (unknown) (no date) (unknown) All (no value) (units unknown ) (unknown) Result panel 192 (unknown) (no date) (unknown) All (no value) (units unknown ) (unknown) Result panel 193 (unknown) (no date) (unknown) All (no value) (units unknown ) (unknown) Result panel 194 (unknown) (no date) (unknown) All (no value) (units unknown ) (unknown) Result panel 195 (unknown) (no date) (unknown) All (no value) (units unknown ) (unknown) Result panel 196 (unknown) (no date) (unknown) All (no value) (units unknown ) (unknown) Result panel 197 (unknown) (no date) (unknown) All (no value) (units unknown ) (unknown) Result panel 198 (unknown) (no date) (unknown) All (no value) (units unknown ) (unknown) Result panel 199 (unknown) (no date) (unknown) All (no value) (units unknown ) (unknown) Result panel 200 (unknown) (no date) (unknown) All (no value) (units unknown ) (unknown) Result panel 201 (unknown) (no date) (unknown) All (no value) (units unknown ) (unknown) Result panel 202 (unknown) (no date) (unknown) All (no value) (units unknown ) (unknown) Result panel 203 (unknown) (no date) (unknown) All (no value) (units unknown ) (unknown) Result panel 204 (unknown) (no date) (unknown) All (no value) (units unknown ) (unknown) Result panel 205 (unknown) (no date) (unknown) All (no value) (units unknown ) (unknown) Result panel 206 (unknown) (no date) (unknown) All (no value) (units unknown ) (unknown) Result panel 207 (unknown) (no date) (unknown) All (no value) (units unknown ) (unknown) Result panel 208 (unknown) (no date) (unknown) All (no value) (units unknown ) (unknown) Result panel 209 (unknown) (no date) (unknown) All (no value) (units unknown ) (unknown) Result panel 210 (unknown) (no date) (unknown) All (no value) (units unknown ) (unknown) Result panel 211 (unknown) (no date) (unknown) All (no value) (units unknown ) (unknown) Result panel 212 (unknown) (no date) (unknown) All (no value) (units unknown ) (unknown) Result panel 213 (unknown) (no date) (unknown) All (no value) (units unknown ) (unknown) Result panel 214 (unknown) (no date) (unknown) All (no value) (units unknown ) (unknown) Result panel 215 (unknown) (no date) (unknown) All (no value) (units unknown ) (unknown) Result panel 216 (unknown) (no date) (unknown) All (no value) (units unknown ) (unknown) Result panel 217 (unknown) (no date) (unknown) All (no value) (units unknown ) (unknown) Result panel 218 (unknown) (no date) (unknown) All (no value) (units unknown ) (unknown) Result panel 219 (unknown) (no date) (unknown) All (no value) (units unknown ) (unknown) Result panel 220 (unknown) (no date) (unknown) All (no value) (units unknown ) (unknown) Result panel 221 (unknown) (no date) (unknown) All (no value) (units unknown ) (unknown) Result panel 222 (unknown) (no date) (unknown) All (no value) (units unknown ) (unknown) Result panel 223 (unknown) (no date) (unknown) All (no value) (units unknown ) (unknown) Result panel 224 (unknown) (no date) (unknown) All (no value) (units unknown ) (unknown) Result panel 225 (unknown) (no date) (unknown) All (no value) (units unknown ) (unknown) Result panel 226 (unknown) (no date) (unknown) All (no value) (units unknown ) (unknown) Result panel 227 (unknown) (no date) (unknown) All (no value) (units unknown ) (unknown) Result panel 228 (unknown) (no date) (unknown) All (no value) (units unknown ) (unknown) Result panel 229 (unknown) (no date) (unknown) All (no value) (units unknown ) (unknown) Result panel 230 (unknown) (no date) (unknown) All (no value) (units unknown ) (unknown) Result panel 231 (unknown) (no date) (unknown) All (no value) (units unknown ) (unknown) Result panel 232 (unknown) (no date) (unknown) All (no value) (units unknown ) (unknown) Result panel 233 (unknown) (no date) (unknown) All (no value) (units unknown ) (unknown) Result panel 234 (unknown) (no date) (unknown) All (no value) (units unknown ) (unknown) Result panel 235 (unknown) (no date) (unknown) All (no value) (units unknown ) (unknown) Result panel 236 (unknown) (no date) (unknown) All (no value) (units unknown ) (unknown) Result panel 237 (unknown) (no date) (unknown) All (no value) (units unknown ) (unknown) Result panel 238 (unknown) (no date) (unknown) All (no value) (units unknown ) (unknown) Result panel 239 (unknown) (no date) (unknown) All (no value) (units unknown ) (unknown) Result panel 240 (unknown) (no date) (unknown) All (no value) (units unknown ) (unknown) Result panel 241 (unknown) (no date) (unknown) All (no value) (units unknown ) (unknown) Result panel 242 (unknown) (no date) (unknown) All (no value) (units unknown ) (unknown) Result panel 243 (unknown) (no date) (unknown) All (no value) (units unknown ) (unknown) Result panel 244 (unknown) (no date) (unknown) All (no value) (units unknown ) (unknown) Result panel 245 (unknown) (no date) (unknown) All (no value) (units unknown ) (unknown) Result panel 246 (unknown) (no date) (unknown) All (no value) (units unknown ) (unknown) Result panel 247 (unknown) (no date) (unknown) All (no value) (units unknown ) (unknown) Result panel 248 (unknown) (no date) (unknown) All (no value) (units unknown ) (unknown) Result panel 249 (unknown) (no date) (unknown) All (no value) (units unknown ) (unknown) Result panel 250 (unknown) (no date) (unknown) All (no value) (units unknown ) (unknown) Result panel 251 (unknown) (no date) (unknown) All (no value) (units unknown ) (unknown) Result panel 252 (unknown) (no date) (unknown) All (no value) (units unknown ) (unknown) Result panel 253 (unknown) (no date) (unknown) All (no value) (units unknown ) (unknown) Result panel 254 (unknown) (no date) (unknown) All (no value) (units unknown ) (unknown) Result panel 255 (unknown) (no date) (unknown) All (no value) (units unknown ) (unknown) Result panel 256 (unknown) (no date) (unknown) All (no value) (units unknown ) (unknown) Result panel 257 (unknown) (no date) (unknown) All (no value) (units unknown ) (unknown) Result panel 258 (unknown) (no date) (unknown) All (no value) (units unknown ) (unknown) Result panel 259 (unknown) (no date) (unknown) All (no value) (units unknown ) (unknown) Result panel 260 (unknown) (no date) (unknown) All (no value) (units unknown ) (unknown) Result panel 261 (unknown) (no date) (unknown) All (no value) (units unknown ) (unknown) Result panel 262 (unknown) (no date) (unknown) All (no value) (units unknown ) (unknown) Result panel 263 (unknown) (no date) (unknown) All (no value) (units unknown ) (unknown) Result panel 264 (unknown) (no date) (unknown) All (no value) (units unknown ) (unknown) Result panel 265 (unknown) (no date) (unknown) All (no value) (units unknown ) (unknown) Result panel 266 (unknown) (no date) (unknown) All (no value) (units unknown ) (unknown) Result panel 267 (unknown) (no date) (unknown) All (no value) (units unknown ) (unknown) Result panel 268 (unknown) (no date) (unknown) All (no value) (units unknown ) (unknown) Result panel 269 (unknown) (no date) (unknown) All (no value) (units unknown ) (unknown) Result panel 270 (unknown) (no date) (unknown) All (no value) (units unknown ) (unknown) Result panel 271 (unknown) (no date) (unknown) All (no value) (units unknown ) (unknown) Result panel 272 (unknown) (no date) (unknown) All (no value) (units unknown ) (unknown) Result panel 273 (unknown) (no date) (unknown) All (no value) (units unknown ) (unknown) Result panel 274 (unknown) (no date) (unknown) All (no value) (units unknown ) (unknown) Result panel 275 (unknown) (no date) (unknown) All (no value) (units unknown ) (unknown) Result panel 276 (unknown) (no date) (unknown) All (no value) (units unknown ) (unknown) Result panel 277 (unknown) (no date) (unknown) All (no value) (units unknown ) (unknown) Result panel 278 (unknown) (no date) (unknown) All (no value) (units unknown ) (unknown) Result panel 279 (unknown) (no date) (unknown) All (no value) (units unknown ) (unknown) Result panel 280 (unknown) (no date) (unknown) All (no value) (units unknown ) (unknown) Result panel 281 (unknown) (no date) (unknown) All (no value) (units unknown ) (unknown) Result panel 282 (unknown) (no date) (unknown) All (no value) (units unknown ) (unknown) Result panel 283 (unknown) (no date) (unknown) All (no value) (units unknown ) (unknown) Result panel 284 (unknown) (no date) (unknown) All (no value) (units unknown ) (unknown) Result panel 285 (unknown) (no date) (unknown) All (no value) (units unknown ) (unknown) Result panel 286 (unknown) (no date) (unknown) All (no value) (units unknown ) (unknown) Result panel 287 (unknown) (no date) (unknown) All (no value) (units unknown ) (unknown) Result panel 288 (unknown) (no date) (unknown) All (no value) (units unknown ) (unknown) Result panel 289 (unknown) (no date) (unknown) All (no value) (units unknown ) (unknown) Result panel 290 (unknown) (no date) (unknown) All (no value) (units unknown ) (unknown) Result panel 291 (unknown) (no date) (unknown) All (no value) (units unknown ) (unknown) Result panel 292 (unknown) (no date) (unknown) All (no value) (units unknown ) (unknown) Result panel 293 (unknown) (no date) (unknown) All (no value) (units unknown ) (unknown) Result panel 294 (unknown) (no date) (unknown) All (no value) (units unknown ) (unknown) Result panel 295 (unknown) (no date) (unknown) All (no value) (units unknown ) (unknown) Result panel 296 (unknown) (no date) (unknown) All (no value) (units unknown ) (unknown) Result panel 297 (unknown) (no date) (unknown) All (no value) (units unknown ) (unknown) Result panel 298 (unknown) (no date) (unknown) All (no value) (units unknown ) (unknown) Result panel 299 (unknown) (no date) (unknown) All (no value) (units unknown ) (unknown) Result panel 300 (unknown) (no date) (unknown) All (no value) (units unknown ) (unknown) Result panel 301 (unknown) (no date) (unknown) All (no value) (units unknown ) (unknown) Result panel 302 (unknown) (no date) (unknown) All (no value) (units unknown ) (unknown) Result panel 303 (unknown) (no date) (unknown) All (no value) (units unknown ) (unknown) Result panel 304 (unknown) (no date) (unknown) All (no value) (units unknown ) (unknown) Result panel 305 (unknown) (no date) (unknown) All (no value) (units unknown ) (unknown) Result panel 306 (unknown) (no date) (unknown) All (no value) (units unknown ) (unknown) Result panel 307 (unknown) (no date) (unknown) All (no value) (units unknown ) (unknown) Result panel 308 (unknown) (no date) (unknown) All (no value) (units unknown ) (unknown) Result panel 309 (unknown) (no date) (unknown) All (no value) (units unknown ) (unknown) Result panel 310 (unknown) (no date) (unknown) All (no value) (units unknown ) (unknown) Social History No information. Vital Signs No information.
[2022-05-04] MEDS ORDERED: KETOROLAC 15 MG/ML VIAL IM STA (01:06)
--- NOTE | 2022-05-04 01:10 | ED Physician Documentation ---
History of Present Illness - Stated complaint Stated Complaint: LEFT LEG PAIN - Chief complaint Chief Complaint: Ext Problem - History obtained from History obtained from: Patient - Additonal information Additional information: 77-year-old woman with history of chronic left leg pain presents with continued pain this evening. Patient states that she has a high level of anxiety about medications and was recently prescribed meloxicam but has been scared to take it. She is requesting an alternative medication. Pain is chronic, ongoing, located in the left lower extremity radiating downward, diagnosed as possible sciatica by Dr. Huizar. Review of Systems Constitutional: denies: Fever Skin: denies: Rash Musculoskeletal: reports: Extremity pain. 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 HEENT: Cataracts - Present Medications Home Medications: Ambulatory Orders Medication Instructions Recorded Confirmed Aspirin [Aspir-Low] 81 mg PO DAILY 09/11/15 03/18/20 Chlorthalidone 12.5 mg PO BID 09/11/15 03/18/20 carvediloL [Coreg] 6.25 mg PO BID 09/11/15 03/18/20 Olmesartan Medoxomil [Benicar] 12/23/20 Ketorolac [Toradol] 10 mg PO Q6H PRN #30 tablet 05/04/22 - Allergies Allergies/Adverse Reactions: Allergies Allergy/AdvReac Type Severity Reaction Status Date / Time No Known Drug Allergies Allergy Verified 05/04/22 00:15 - Social History Does the pt smoke?: No Smoking Status: Former smoker Does the pt drink ETOH?: No Does the pt have substance abuse?: No - Immunizations Immunizations are current?: Yes - POLST Patient has POLST: No PD ED PE NORMAL - Vitals Vital signs reviewed: Yes - General General: Alert and oriented X 3, No acute distress, Well developed/nourished - HEENT HEENT: Atraumatic, PERRL, EOMI - Neck Neck: No bony TTP - Back Back: No spinal TTP - Derm Derm: Normal color, Warm and dry - Extremities Extremities: No deformity, Other (Left lower extremity discomfort with ROM. CSM intact BL LE) - Neuro Neuro: No motor deficit, No sensory deficit - Psych Psych: Other (anxious mood and affect) Results - Vitals Vitals: Vital Signs - 24 hr 05/04/22 05/04/22 00:20 00:30 Temperature 36.8 C Heart Rate 76 Respiratory 20 Rate Blood Pressure 202/92 H 169/75 H O2 Saturation 98 Oxygen O2 Source Room air PD Medical Decision Making - ED course ED course: 77-year-old woman presented with chronic left lower extremity pain. She is requesting an alternative medicine besides meloxicam. Offered Toradol which was excepted and sent to her pharmacy. Since this is chronic pain and has been extensively worked up in the past I have low suspicion for DVT or traumatic etiology at this time. It is likely that this is sciatica given the constellation of symptoms. Symptomatic care discussed. Plan to follow-up with Dr. Huizar tomorrow. Return precautions given. Departure - Departure Disposition: 01 Home, Self Care Clinical Impression: Anxiety, Pain in extremity Condition: Good Instructions: ED Chronic Pain Management Follow-Up: Sandy Huizar MD [Provider Admit Priv/Credential] - Prescriptions: Ketorolac [Toradol] 10 mg PO Q6H PRN #30 tablet PRN Reason: Pain Comments: You are seen in the emergency department for chronic leg pain and anxiety. Please follow-up with Dr. Huizar tomorrow. Return to the emergency department if you have any new or worsening symptoms or other concerns. Prescription was sent electronically to community pharmacy on [facility]
[2022-05-04 01:23] VITALS: BP 164/75
== END 2022-05-04 01:22 | disposition home or self-care (01) ==
LOC: EDUNIT# → ED 00:07
DX: M79.605 Pain in left leg (principal); F41.9 Anxiety disorder, unspecified; G89.29 Other chronic pain
CPT/HCPCS: 96372; 99283

== ENCOUNTER 2022-05-07 02:00 | Outpatient (CLI) | payer MEDICARE, OTHER | END 2022-05-07 02:01 | disposition EMS.NT | LOC: EMS 02:00 | DX: Z03.89 Encounter for observation for other suspected diseases and conditions ruled out (principal) ==

== ENCOUNTER 2022-05-07 09:02 | Outpatient (CLI) | payer MEDICARE, OTHER | END 2022-05-07 09:03 | disposition critical access hospital (66) | LOC: EMS 09:02 | DX: S90.31XA Contusion of right foot, initial encounter (principal); W18.30XA Fall on same level, unspecified, initial encounter; Y92.009 Unspecified place in unspecified non-institutional (private) residence as the place of occurrence of the external cause; R11.0 Nausea; R42 Dizziness and giddiness | CPT/HCPCS: A0425; A0429 ==

== ENCOUNTER 2022-05-07 09:13 | Emergency (ER) | payer MEDICARE, OTHER ==
[2022-05-07] MEDS ORDERED: ONDANSETRON ODT 4 MG TABLET TL STA (09:38)
--- NOTE | 2022-05-07 09:52 | ED Physician Documentation ---
History of Present Illness - Stated complaint Stated Complaint: FALL - Chief complaint Chief Complaint: Trauma Ext - History obtained from History obtained from: Patient, EMS - History of Present Illness Timing: Today Pain level max: 6 Pain level now: 2 - Additonal information Additional information: 77-year-old female presents to the emergency department stating that she noted the top of her right foot was bruised today. She states she has had several falls over the past few months. Does not recall any specific injury to the foot. Worse with walking, better with rest. She was seen at [facility] yesterday after a fall and right leg pain. She states that they prescribed her pain medication but she has not picked it up yet. No falls last night or today. 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 HEENT: Cataracts - Present Medications Home Medications: Ambulatory Orders Medication Instructions Recorded Confirmed Aspirin [Aspir-Low] 81 mg PO DAILY 09/11/15 03/18/20 Chlorthalidone 12.5 mg PO BID 09/11/15 03/18/20 carvediloL [Coreg] 6.25 mg PO BID 09/11/15 03/18/20 Olmesartan Medoxomil [Benicar] 12/23/20 Ketorolac [Toradol] 10 mg PO Q6H PRN #30 tablet 05/04/22 - Allergies Allergies/Adverse Reactions: Allergies Allergy/AdvReac Type Severity Reaction Status Date / Time No Known Drug Allergies Allergy Verified 05/04/22 00:15 - Social History Does the pt smoke?: No Smoking Status: Former smoker Does the pt drink ETOH?: No Does the pt have substance abuse?: No - Immunizations Immunizations are current?: Yes - POLST Patient has POLST: No PD ED PE NORMAL - Vitals Vital signs reviewed: Yes - General General: Alert and oriented X 3, No acute distress - HEENT HEENT: Moist mucous membranes - Derm Derm: Warm and dry - Extremities Extremities: Other (R foot - Mild swelling and ecchymosis of the dorsum of the right foot. Neurovascular intact. Mild tenderness over the dorsum of the foot as well. No deformity.) - Neuro Neuro: Alert and oriented X 3 Results - Vitals Vitals: Vital Signs - 24 hr 05/07/22 05/07/22 05/07/22 09:26 11:08 11:27 Temperature 37.0 C Heart Rate 57 L 74 87 Respiratory 18 18 13 Rate Blood Pressure 162/87 H 138/69 H 151/85 H O2 Saturation 98 99 100 Oxygen O2 Source Room air - Rads (name of study) Right foot x-ray Radiology: Final report received, See rad report PD Medical Decision Making - ED course Complexity details: reviewed results, re-evaluated patient, considered differential, d/w patient ED course: 77-year-old female with acute versus subacute fractures of the second, third, fourth metatarsals. No dislocation. No significant displacement. Patient was placed in a walking boot. Discussed the case with Dr. Renee, orthopedics. Will make her weightbearing as tolerated. She does have a walker at home. Apparently a neighbor called the manager social work and told the manager social work that they were concerned about the patient living at home. They would like us to discuss placement with her. The patient declines placement. She states that she feels comfortable at home and wants to go home. Patient will follow up with orthopedics for further care. Patient counseled regarding signs and symptoms for which I believe and urgent re-evaluation would be necessary. Patient with good understanding of and agreement to plan and is comfortable going home at this time This document was made in part using voice recognition software. While efforts are made to proofread this document, sound alike and grammatical errors may occur. Departure - Departure Disposition: 01 Home, Self Care Clinical Impression: Metatarsal bone fracture Qualifiers: Encounter type: initial encounter Metatarsal bone: unspecified metatarsal Fracture type: closed Fracture alignment: nondisplaced Laterality: right Qualified Code(s): S92.301A - Fracture of unspecified metatarsal bone(s), right foot, initial encounter for closed fracture Condition: Good Instructions: ED Fx Foot Follow-Up: [facility] [Provider Group] - Within 1 week Comments: You have several fractures in your foot. You are placed in a walking boot today. I spoke with Dr. Renee, orthopedics, you may bear weight as tolerated, but you will likely need to use a walker. You need to stay in the walking boot. Please call orthopedics to set up an appointment to be seen in approximately 1 week. Return if you worsen You do have pain medication waiting for you at the pharmacy that was prescribed by [facility]. IMPRESSION: The Lisfranc fractures of the base of the second, third, and fourth metatarsals without dislocation. These are either acute or subacute. Discharge Date/Time: 05/07/22 11:32
--- OUTSIDE RECORDS SUMMARY | 2022-05-07 10:07 | EXTERNAL MEDICAL SUMMARY RPT | Continuity of Care Document ---
:1945 Author Organization [place] Address [address] [place] [address] Phone Care Team Providers Name Role Phone Unavailable Unavailable Unavailable Bita Valdez Unavailable Unavailable [facility] Unavailable Unavailable Shirley, Provider Unavailable Unavailable Allergies and Intolerances date description facility type (no date) No Known Drug Allergies [facility] (unkn own) Encounters No information. Functional Status No information. Immunizations No information. Medications date description facility 2022-05-06 00:[address] [facility] Problems date description facility 2022-02-12 00:00 Hip [...] 2022-03-11 00:00 Other and unspecified hyperlipidemia A 2022-03-11 00:00 Hypertensive disorder All 2022-03-11 00:00 Benign essential hypertension All 2022-03-11 00:00 Unspecified essential hypertension All 2022-03-11 00:00 Hyperlipidemia All 2022-03-11 00:00 Hyperlipidemia, unspecified All 2022-03-11 00:00 Essential (primary) hypertension All 2022-03-12 00:00 Other and unspecified hyperlipidemia A 2022-03-12 00:00 Hypertensive disorder All 2022-03-12 00:00 Benign essential hypertension All 2022-03-12 00:00 Unspecified essential hypertension All 2022-03-12 00:00 Hyperlipidemia All 2022-03-12 00:00 Hyperlipidemia, unspecified All 2022-03-12 00:00 Essential (primary) hypertension All 2022-05-06 00:00 Pain of left lower extremity [facility] Procedures date description facility 2022-02-12 00:00 XR [...] value) (units unknown ) (unknown) Result panel 311 (unknown) (no date) (unknown) (unknown) 0-1/HPF (units (unkn own) unknown) (unknown) (no date) (unknown) (unknown) 0-1/HPF (units (unkn own) unknown) (unknown) (no date) (unknown) (unknown) Moderate (units (unkn own) (10-30) unknown) Result panel 312 (unknown) (no (unknown) (unknown) (no value) (units (unk nown) date) unknown) (unknown) (no (unknown) (unknown) 05/06/22 17:20 (units (unknown) date) unknown) (unknown) (no (unknown) (unknown) 05/06/22 18:58 (units (unknown) date) unknown) (unknown) (no (unknown) (unknown) 05/06/22 (units (unkno wn) date) Range/Units unknown) (unknown) (no (unknown) (unknown) 05/06/22 (units (unkno wn) date) unknown) (unknown) (no (unknown) (unknown) 13:02 05/06/22 (units (unknown) date) unknown) (unknown) (no (unknown) (unknown) 17:20 (units (unkno wn) date) unknown) (unknown) (no (unknown) (unknown) 17:23 (units (unkno wn) date) unknown) (unknown) (no (unknown) (unknown) 17:24 05/06/22 (units (unknown) date) unknown) (unknown) (no (unknown) (unknown) 17:30 05/06/22 (units (unknown) date) unknown) (unknown) (no (unknown) (unknown) 17:30 (units (unkno wn) date) unknown) (unknown) (no (unknown) (unknown) 17:32 05/06/22 (units (unknown) date) unknown) (unknown) (no (unknown) (unknown) 17:45 05/06/22 (units (unknown) date) unknown) (unknown) (no (unknown) (unknown) 17:45 (units (unkno wn) date) unknown) (unknown) (no (unknown) (unknown) 17:48 05/06/22 (units (unknown) date) unknown) (unknown) (no (unknown) (unknown) 18:01 05/06/22 (units (unknown) date) unknown) (unknown) (no (unknown) (unknown) 18:10 (units (unkno wn) date) unknown) (unknown) (no (unknown) (unknown) 18:13 05/06/22 (units (unknown) date) unknown) (unknown) (no (unknown) (unknown) 18:15 05/06/22 (units (unknown) date) unknown) (unknown) (no (unknown) (unknown) 18:15 (units (unkno wn) date) unknown) (unknown) (no (unknown) (unknown) 18:30 05/06/22 (units (unknown) date) unknown) (unknown) (no (unknown) (unknown) 18:30 (units (unkno wn) date) unknown) (unknown) (no (unknown) (unknown) 18:31 05/06/22 (units (unknown) date) unknown) (unknown) (no (unknown) (unknown) 18:45 (units (unkno wn) date) unknown) (unknown) (no (unknown) (unknown) [id number] (units (unkno wn) date) unknown) (unknown) (no (unknown) (unknown) Age/Sex: 77 / F (units (unknown) date) unknown) (unknown) (no (unknown) (unknown) Allergies (units (unkn own) date) unknown) (unknown) (no (unknown) (unknown) Allergy/AdvReac (units (unknown) date) Type Severity unknown) Reaction Status Date / Time (unknown) (no (unknown) (unknown) Bedside Urine (units ( unknown) date) Bilirubin - unknown) Negative (unknown) (no (unknown) (unknown) Bedside Urine (units ( unknown) date) Glucose Negative unknown) (unknown) (no (unknown) (unknown) Bedside Urine (units ( unknown) date) Ketone + 15 unknown) (unknown) (no (unknown) (unknown) Bedside Urine (units ( unknown) date) Leukocytes - unknown) Negative (unknown) (no (unknown) (unknown) Bedside Urine (units ( unknown) date) Occult Blood +/ unknown) (unknown) (no (unknown) (unknown) Bedside Urine (units ( unknown) date) Protein - unknown) Negative (unknown) (no (unknown) (unknown) Bedside Urine (units ( unknown) date) Urobilinogen 0.2 unknown) (unknown) (no (unknown) (unknown) Bedside Urine pH (units (unknown) date) 6.0 unknown) (unknown) (no (unknown) (unknown) Blood Pressure (units (unknown) date) 186/86 H unknown) (unknown) (no (unknown) (unknown) Blood Pressure (units (unknown) date) 194/88 H unknown) (unknown) (no (unknown) (unknown) Blood Pressure (units (unknown) date) 194/91 H 192/89 H unknown) (unknown) (no (unknown) (unknown) Blood Pressure (units (unknown) date) 204/90 H 05/06/22 unknown) 13:02 (unknown) (no (unknown) (unknown) Blood Pressure (units (unknown) date) 204/90 H unknown) (unknown) (no (unknown) (unknown) Blood Pressure (units (unknown) date) 209/95 H 217/100 unknown) H (unknown) (no (unknown) (unknown) Blood Pressure (units (unknown) date) 213/95 H unknown) (unknown) (no (unknown) (unknown) Blood Pressure (units (unknown) date) 243/116 H unknown) (unknown) (no (unknown) (unknown) Chief complaint: (units (unknown) date) Extremity unknown) Problem,Nontrauma tic (unknown) (no (unknown) (unknown) Complete Blood (units (unknown) date) Count AUTO DIFF unknown) Stat (unknown) (no (unknown) (unknown) Comprehensive (units ( unknown) date) Metabolic Panel unknown) Stat (unknown) (no (unknown) (unknown) Course (units (unkno wn) date) unknown) (unknown) (no (unknown) (unknown) : 1945 (units (unknown) date) Acct:[id number] unknown) (unknown) (no (unknown) (unknown) Date of Service: (units (unknown) date) 05/06/22 unknown) (unknown) (no (unknown) (unknown) Departure (units (unkn own) date) unknown) (unknown) (no (unknown) (unknown) Discharge Plan (units (unknown) date) unknown) (unknown) (no (unknown) (unknown) Documented By: (units (unknown) date) EFREN unknown) (unknown) (no (unknown) (unknown) ED Orders (units (unkn own) date) unknown) (unknown) (no (unknown) (unknown) ER Physician: (units ( unknown) date) Tomas Bond unknown) D.O. (unknown) (no (unknown) (unknown) Emergency Report (units (unknown) date) unknown) (unknown) (no (unknown) (unknown) Esterase (units (unkno wn) date) unknown) (unknown) (no (unknown) (unknown) Exam (units (unkno wn) date) unknown) (unknown) (no (unknown) (unknown) General (units (unkno wn) date) unknown) (unknown) (no (unknown) (unknown) HPI - Extremity (units (unknown) date) Problem unknown) (unknown) (no (unknown) (unknown) Initial Vital (units ( unknown) date) Signs unknown) (unknown) (no (unknown) (unknown) Initial Vital (units ( unknown) date) Signs: unknown) (unknown) (no (unknown) (unknown) [facility] (units (unknown) date) [address] unknown) [place] [address] (unknown) (no (unknown) (unknown) Ketones (units (unkno wn) date) (Beta-Hydroxybuty unknown) rate) Stat (unknown) (no (unknown) (unknown) Lab Data (units (unkno wn) date) unknown) (unknown) (no (unknown) (unknown) Lab Results (units (un known) date) unknown) (unknown) (no (unknown) (unknown) Labs: (units (unkno wn) date) unknown) (unknown) (no (unknown) (unknown) Last Admin: (units (un known) date) 05/06/22 13:29 unknown) Dose: 4 mg (unknown) (no (unknown) (unknown) MDM - Extremity (units (unknown) date) (Nontraumatic) unknown) (unknown) (no (unknown) (unknown) Magnesium Stat (units (unknown) date) unknown) (unknown) (no (unknown) (unknown) Mode of arrival: (units (unknown) date) Wheelchair unknown) (unknown) (no (unknown) (unknown) No Known Drug (units ( unknown) date) Allergies Allergy unknown) Verified 05/06/22 13:02 (unknown) (no (unknown) (unknown) Ondansetron HCl (units (unknown) date) (Ondansetron 4 Mg unknown) Odt) 4 mg SL NOW PRN (unknown) (no (unknown) (unknown) Ordered: (units (unkno wn) date) unknown) (unknown) (no (unknown) (unknown) Orders (units (unkno wn) date) unknown) (unknown) (no (unknown) (unknown) Oxygen Delivery (units (unknown) date) Method 05/06/22 unknown) 13:02 (unknown) (no (unknown) (unknown) Oxygen Delivery (units (unknown) date) Method Room Air unknown) (unknown) (no (unknown) (unknown) Oxygen Delivery (units (unknown) date) Method unknown) (unknown) (no (unknown) (unknown) PRN Reason: (units (un known) date) Nausea And unknown) Vomiting (unknown) (no (unknown) (unknown) Patient History (units (unknown) date) unknown) (unknown) (no (unknown) (unknown) Patient: (units (unkno wn) date) Bette David T unknown) MR#: [id number] (unknown) (no (unknown) (unknown) Pulse Oximetry (units (unknown) date) 94 05/06/22 13:02 unknown) (unknown) (no (unknown) (unknown) Pulse Oximetry (units (unknown) date) 94 96 unknown) (unknown) (no (unknown) (unknown) Pulse Oximetry (units (unknown) date) 96 96 unknown) (unknown) (no (unknown) (unknown) Pulse Oximetry (units (unknown) date) 96 unknown) (unknown) (no (unknown) (unknown) Pulse Oximetry (units (unknown) date) 97 97 unknown) (unknown) (no (unknown) (unknown) Pulse Oximetry (units (unknown) date) 97 unknown) (unknown) (no (unknown) (unknown) Pulse Oximetry (units (unknown) date) unknown) (unknown) (no (unknown) (unknown) Pulse Rate 71 (units ( unknown) date) 05/06/22 13:02 unknown) (unknown) (no (unknown) (unknown) Pulse Rate 71 85 (units (unknown) date) unknown) (unknown) (no (unknown) (unknown) Pulse Rate 84 86 (units (unknown) date) unknown) (unknown) (no (unknown) (unknown) Pulse Rate 85 (units ( unknown) date) unknown) (unknown) (no (unknown) (unknown) Pulse Rate 87 89 (units (unknown) date) unknown) (unknown) (no (unknown) (unknown) Pulse Rate 89 (units ( unknown) date) unknown) (unknown) (no (unknown) (unknown) Pulse Rate 92 H (units (unknown) date) 89 unknown) (unknown) (no (unknown) (unknown) Pulse Rate (units (unk nown) date) [Right Posterior unknown) Tibial] 81 (unknown) (no (unknown) (unknown) Pulse Rate (units (unk nown) date) [Right Posterior unknown) Tibial] (unknown) (no (unknown) (unknown) Referrals: (units (unk nown) date) unknown) (unknown) (no (unknown) (unknown) Related Data (units (u nknown) date) unknown) (unknown) (no (unknown) (unknown) Respiratory Rate (units (unknown) date) 18 05/06/22 13:02 unknown) (unknown) (no (unknown) (unknown) Respiratory Rate (units (unknown) date) 18 unknown) (unknown) (no (unknown) (unknown) Respiratory Rate (units (unknown) date) unknown) (unknown) (no (unknown) (unknown) Signed By: (units (unk nown) date) unknown) (unknown) (no (unknown) (unknown) Bita Valdez (units (unk nown) date) MD Penny unknown) [Primary Care Provider] (unknown) (no (unknown) (unknown) Smoking Status: (units (unknown) date) Unknown if ever unknown) smoked (unknown) (no (unknown) (unknown) Social History (units (unknown) date) unknown) (unknown) (no (unknown) (unknown) Source: patient (units (unknown) date) unknown) (unknown) (no (unknown) (unknown) Stated (units (unkno wn) date) complaint: unknown) Nausea, Leg problems (unknown) (no (unknown) (unknown) Substance Use (units ( unknown) date) Type: does not unknown) use (unknown) (no (unknown) (unknown) Temperature 96.4 (units (unknown) date) F L 05/06/22 unknown) 13:02 (unknown) (no (unknown) (unknown) Temperature 96.4 (units (unknown) date) F L unknown) (unknown) (no (unknown) (unknown) Temperature (units (un known) date) unknown) (unknown) (no (unknown) (unknown) Time Seen by (units (u nknown) date) Provider: unknown) 05/06/22 18:01 (unknown) (no (unknown) (unknown) Urine Bacteria (units (unknown) date) Moderate (10-30) unknown) H (None) (unknown) (no (unknown) (unknown) Urine Culture (units ( unknown) date) Stat unknown) (unknown) (no (unknown) (unknown) Urine Dip (units (unkn own) date) unknown) (unknown) (no (unknown) (unknown) Urine (units (unkno wn) date) Microscopic Stat unknown) (unknown) (no (unknown) (unknown) Urine RBC (units (unkn own) date) 0-1/hpf (0-5/HPF) unknown) (unknown) (no (unknown) (unknown) Urine Specific (units (unknown) date) Wayne 1.015 unknown) (unknown) (no (unknown) (unknown) Urine WBC (units (unkn own) date) 0-1/hpf (0-5/HPF) unknown) (unknown) (no (unknown) (unknown) Vital Signs - 8 (units (unknown) date) hr unknown) (unknown) (no (unknown) (unknown) Vital Signs (units (un known) date) unknown) (unknown) (no (unknown) (unknown) Vital signs: (units (u nknown) date) unknown) (unknown) (no (unknown) (unknown) alcohol intake (units (unknown) date) frequency: unknown) holidays/special occasions only Result panel 313 (unknown) (no (unknown) (unknown) (no value) (units (unk nown) date) unknown) (unknown) (no (unknown) (unknown) 05/06/22 (units (unkno wn) date) Range/Units unknown) (unknown) (no (unknown) (unknown) 05/06/22 (units (unkno wn) date) unknown) (unknown) (no (unknown) (unknown) 17:20 (units (unkno wn) date) unknown) (unknown) (no (unknown) (unknown) 18:45 05/06/22 (units (unknown) date) unknown) (unknown) (no (unknown) (unknown) 18:46 05/06/22 (units (unknown) date) unknown) (unknown) (no (unknown) (unknown) 19:00 05/06/22 (units (unknown) date) unknown) (unknown) (no (unknown) (unknown) 19:00 (units (unkno wn) date) unknown) (unknown) (no (unknown) (unknown) 19:15 05/06/22 (units (unknown) date) unknown) (unknown) (no (unknown) (unknown) 19:15 (units (unkno wn) date) unknown) (unknown) (no (unknown) (unknown) 19:27 05/06/22 (units (unknown) date) unknown) (unknown) (no (unknown) (unknown) 19:30 (units (unkno wn) date) unknown) (unknown) (no (unknown) (unknown) [id number] (units (unkno wn) date) unknown) (unknown) (no (unknown) (unknown) 50 mg PO Q8H (units (u nknown) date) PRN (Reason: unknown) pain) Qty: 10 0RF (unknown) (no (unknown) (unknown) Activity (units (unkno wn) date) Restrictions/Add unknown) itional Instructions: (unknown) (no (unknown) (unknown) Age/Sex: 77 / F (units (unknown) date) unknown) (unknown) (no (unknown) (unknown) Allergies (units (unkn own) date) unknown) (unknown) (no (unknown) (unknown) Allergy/AdvReac (units (unknown) date) Type Severity unknown) Reaction Status Date / Time (unknown) (no (unknown) (unknown) Bedside Urine (units ( unknown) date) Bilirubin - unknown) Negative (unknown) (no (unknown) (unknown) Bedside Urine (units ( unknown) date) Glucose Negative unknown) (unknown) (no (unknown) (unknown) Bedside Urine (units ( unknown) date) Ketone + 15 unknown) (unknown) (no (unknown) (unknown) Bedside Urine (units ( unknown) date) Leukocytes - unknown) Negative (unknown) (no (unknown) (unknown) Bedside Urine (units ( unknown) date) Occult Blood +/ unknown) (unknown) (no (unknown) (unknown) Bedside Urine (units ( unknown) date) Protein - unknown) Negative (unknown) (no (unknown) (unknown) Bedside Urine (units ( unknown) date) Urobilinogen 0.2 unknown) (unknown) (no (unknown) (unknown) Bedside Urine (units ( unknown) date) pH 6.0 unknown) (unknown) (no (unknown) (unknown) Blood Pressure (units (unknown) date) 162/81 H unknown) (unknown) (no (unknown) (unknown) Blood Pressure (units (unknown) date) 186/86 H 166/76 unknown) H (unknown) (no (unknown) (unknown) Blood Pressure (units (unknown) date) 200/87 H unknown) (unknown) (no (unknown) (unknown) Blood Pressure (units (unknown) date) 204/90 H unknown) 05/06/22 13:02 (unknown) (no (unknown) (unknown) Chief (units (unkno wn) date) complaint: unknown) Extremity Problem,Nontraum atic (unknown) (no (unknown) (unknown) Clinical (units (unkno wn) date) Impression: unknown) (unknown) (no (unknown) (unknown) Course (units (unkno wn) date) unknown) (unknown) (no (unknown) (unknown) : 1945 (units (unknown) date) Acct:[id number] unknown) (unknown) (no (unknown) (unknown) Date of (units (unkno wn) date) Service: unknown) 05/06/22 (unknown) (no (unknown) (unknown) Departure (units (unkn own) date) unknown) (unknown) (no (unknown) (unknown) Discharge Plan (units (unknown) date) unknown) (unknown) (no (unknown) (unknown) Discontinued (units (u nknown) date) Medications unknown) (unknown) (no (unknown) (unknown) Documented By: (units (unknown) date) EFREN unknown) (unknown) (no (unknown) (unknown) Documented By: (units (unknown) date) RB unknown) (unknown) (no (unknown) (unknown) ER Physician: (units ( unknown) date) Tomas Bond unknown) D.O. (unknown) (no (unknown) (unknown) Emergency (units (unkn own) date) Report unknown) (unknown) (no (unknown) (unknown) Esterase (units (unkno wn) date) unknown) (unknown) (no (unknown) (unknown) Exam (units (unkno wn) date) unknown) (unknown) (no (unknown) (unknown) General (units (unkno wn) date) unknown) (unknown) (no (unknown) (unknown) HPI - Extremity (units (unknown) date) Problem unknown) (unknown) (no (unknown) (unknown) I do recommend (units (unknown) date) that tomorrow unknown) you contact your primary doctor for a follow-up to (unknown) (no (unknown) (unknown) Initial Vital (units ( unknown) date) Signs unknown) (unknown) (no (unknown) (unknown) Initial Vital (units ( unknown) date) Signs: unknown) (unknown) (no (unknown) (unknown) [facility] (units (unknown) date) [address] [place] [address] Street unknown) [place] [address] (unknown) (no (unknown) (unknown) Lab Data (units (unkno wn) date) unknown) (unknown) (no (unknown) (unknown) Lab Results (units (un known) date) unknown) (unknown) (no (unknown) (unknown) Labs: (units (unkno wn) date) unknown) (unknown) (no (unknown) (unknown) Last Admin: (units (un known) date) 05/06/22 13:29 unknown) Dose: 4 mg (unknown) (no (unknown) (unknown) Last Admin: (units (un known) date) 05/06/22 19:59 unknown) Dose: 1 bottle (unknown) (no (unknown) (unknown) Left leg pain (units ( unknown) date) unknown) (unknown) (no (unknown) (unknown) MDM - Extremity (units (unknown) date) (Nontraumatic) unknown) (unknown) (no (unknown) (unknown) Medication (units (unk nown) date) Instructions unknown) Recorded (unknown) (no (unknown) (unknown) Mode of (units (unkno wn) date) arrival: unknown) Wheelchair (unknown) (no (unknown) (unknown) New (units (unkno wn) date) unknown) (unknown) (no (unknown) (unknown) No Known Drug (units ( unknown) date) Allergies unknown) Allergy Verified 05/06/22 13:02 (unknown) (no (unknown) (unknown) Ondansetron HCl (units (unknown) date) (Ondansetron 4 unknown) Mg Odt Prepack) 1 bottle MIS SEEINSTR ONE (unknown) (no (unknown) (unknown) Ondansetron HCl (units (unknown) date) (Ondansetron 4 unknown) Mg Odt) 4 mg SL NOW PRN (unknown) (no (unknown) (unknown) Ordered: (units (unkno wn) date) unknown) (unknown) (no (unknown) (unknown) Orders (units (unkno wn) date) unknown) (unknown) (no (unknown) (unknown) Oxygen Delivery (units (unknown) date) Method 05/06/22 unknown) 13:02 (unknown) (no (unknown) (unknown) PRN Reason: (units (un known) date) Nausea And unknown) Vomiting (unknown) (no (unknown) (unknown) Patient (units (unkno wn) date) Disposition: unknown) Home (unknown) (no (unknown) (unknown) Patient History (units (unknown) date) unknown) (unknown) (no (unknown) (unknown) Patient: (units (unkno wn) date) Bette David unknown) MR#: [id number] (unknown) (no (unknown) (unknown) Prescriptions: (units (unknown) date) unknown) (unknown) (no (unknown) (unknown) Previous Rx's (units ( unknown) date) unknown) (unknown) (no (unknown) (unknown) Pulse Oximetry (units (unknown) date) 94 05/06/22 unknown) 13:02 (unknown) (no (unknown) (unknown) Pulse Oximetry (units (unknown) date) 96 96 unknown) (unknown) (no (unknown) (unknown) Pulse Oximetry (units (unknown) date) 97 unknown) (unknown) (no (unknown) (unknown) Pulse Rate 71 (units ( unknown) date) 05/06/22 13:02 unknown) (unknown) (no (unknown) (unknown) Pulse Rate 82 (units ( unknown) date) 80 unknown) (unknown) (no (unknown) (unknown) Pulse Rate 88 (units ( unknown) date) unknown) (unknown) (no (unknown) (unknown) Pulse Rate (units (unk nown) date) unknown) (unknown) (no (unknown) (unknown) Referrals: (units (unk nown) date) unknown) (unknown) (no (unknown) (unknown) Related Data (units (u nknown) date) unknown) (unknown) (no (unknown) (unknown) Respiratory (units (un known) date) Rate 18 05/06/22 unknown) 13:02 (unknown) (no (unknown) (unknown) Signed By: (units (unk nown) date) unknown) (unknown) (no (unknown) (unknown) Bita Valdez (units (unk nown) date) MD Penny unknown) [Primary Care Provider] (unknown) (no (unknown) (unknown) Smoking Status: (units (unknown) date) Unknown if ever unknown) smoked (unknown) (no (unknown) (unknown) Social History (units (unknown) date) unknown) (unknown) (no (unknown) (unknown) Source: patient (units (unknown) date) unknown) (unknown) (no (unknown) (unknown) Stand Alone (units (un known) date) Forms: Patient unknown) Portal/API (unknown) (no (unknown) (unknown) Stated (units (unkno wn) date) complaint: unknown) Nausea, Leg problems (unknown) (no (unknown) (unknown) Stop: 05/06/22 (units (unknown) date) 19:25 unknown) (unknown) (no (unknown) (unknown) Stop: 05/06/22 (units (unknown) date) 19:26 unknown) (unknown) (no (unknown) (unknown) Substance Use (units ( unknown) date) Type: does not unknown) use (unknown) (no (unknown) (unknown) Temperature (units (un known) date) 96.4 F L unknown) 05/06/22 13:02 (unknown) (no (unknown) (unknown) Time Seen by (units (u nknown) date) Provider: unknown) 05/06/22 18:01 (unknown) (no (unknown) (unknown) Tramadol HCl (units (u nknown) date) (Tramadol 50 Mg unknown) Prepack) 1 bottle MISC SEEINSTR ONE (unknown) (no (unknown) (unknown) Urine Bacteria (units (unknown) date) Moderate (10-30) unknown) H (None) (unknown) (no (unknown) (unknown) Urine Dip (units (unkn own) date) unknown) (unknown) (no (unknown) (unknown) Urine RBC (units (unkn own) date) 0-1/hpf unknown) (0-5/HPF) (unknown) (no (unknown) (unknown) Urine Specific (units (unknown) date) Wayne 1.015 unknown) (unknown) (no (unknown) (unknown) Urine WBC (units (unkn own) date) 0-1/hpf unknown) (0-5/HPF) (unknown) (no (unknown) (unknown) Vital Signs - 8 (units (unknown) date) hr unknown) (unknown) (no (unknown) (unknown) Vital Signs (units (un known) date) unknown) (unknown) (no (unknown) (unknown) Vital signs: (units (u nknown) date) unknown) (unknown) (no (unknown) (unknown) alcohol intake (units (unknown) date) frequency: unknown) holidays/special occasions only (unknown) (no (unknown) (unknown) department for (units (unknown) date) any new unknown) symptoms. (unknown) (no (unknown) (unknown) discuss further (units (unknown) date) workup to unknown) include ordering the MRI. Return to the emergency (unknown) (no (unknown) (unknown) tramadol 50 mg (units (unknown) date) tablet 50 mg PO unknown) Q8H PRN pain #10 tabs 05/06/22 (unknown) (no (unknown) (unknown) tramadol 50 mg (units (unknown) date) tablet unknown) Result panel 314 (unknown) (no (unknown) (unknown) (no value) (units (unk nown) date) unknown) (unknown) (no (unknown) (unknown) <Electronically (units (unknown) date) signed by Tomas Bond D.O.> (unknown) (no (unknown) (unknown) 05/06/22 (units (unkno wn) date) Range/Units unknown) (unknown) (no (unknown) (unknown) 05/06/22 (units (unkno wn) date) unknown) (unknown) (no (unknown) (unknown) 05/07/22 0241 (units ( unknown) date) unknown) (unknown) (no (unknown) (unknown) 17:20 (units (unkno wn) date) unknown) (unknown) (no (unknown) (unknown) 18:45 05/06/22 (units (unknown) date) unknown) (unknown) (no (unknown) (unknown) 18:46 05/06/22 (units (unknown) date) unknown) (unknown) (no (unknown) (unknown) 19:00 05/06/22 (units (unknown) date) unknown) (unknown) (no (unknown) (unknown) 19:00 (units (unkno wn) date) unknown) (unknown) (no (unknown) (unknown) 19:15 05/06/22 (units (unknown) date) unknown) (unknown) (no (unknown) (unknown) 19:15 (units (unkno wn) date) unknown) (unknown) (no (unknown) (unknown) 19:27 05/06/22 (units (unknown) date) unknown) (unknown) (no (unknown) (unknown) 19:30 (units (unkno wn) date) unknown) (unknown) (no (unknown) (unknown) [id number] (units (unkno wn) date) unknown) (unknown) (no (unknown) (unknown) 50 mg PO Q8H PRN (units (unknown) date) (Reason: pain) Qty: unknown) 10 0RF (unknown) (no (unknown) (unknown) Activity (units (unkno wn) date) Restrictions/Additi unknown) onal Instructions: (unknown) (no (unknown) (unknown) Age/Sex: 77 / F (units (unknown) date) unknown) (unknown) (no (unknown) (unknown) Allergies (units (unkn own) date) unknown) (unknown) (no (unknown) (unknown) Allergy/AdvReac (units (unknown) date) Type Severity unknown) Reaction Status Date / Time (unknown) (no (unknown) (unknown) Auscultation: (units ( unknown) date) clear to unknown) auscultation bilaterally (unknown) (no (unknown) (unknown) Bedside Urine (units ( unknown) date) Bilirubin - unknown) Negative (unknown) (no (unknown) (unknown) Bedside Urine (units ( unknown) date) Glucose Negative unknown) (unknown) (no (unknown) (unknown) Bedside Urine (units ( unknown) date) Ketone + 15 unknown) (unknown) (no (unknown) (unknown) Bedside Urine (units ( unknown) date) Leukocytes - unknown) Negative (unknown) (no (unknown) (unknown) Bedside Urine (units ( unknown) date) Occult Blood +/ unknown) (unknown) (no (unknown) (unknown) Bedside Urine (units ( unknown) date) Protein - Negative unknown) (unknown) (no (unknown) (unknown) Bedside Urine (units ( unknown) date) Urobilinogen 0.2 unknown) (unknown) (no (unknown) (unknown) Bedside Urine pH (units (unknown) date) 6.0 unknown) (unknown) (no (unknown) (unknown) Blood Pressure (units (unknown) date) 162/81 H unknown) (unknown) (no (unknown) (unknown) Blood Pressure (units (unknown) date) 186/86 H 166/76 H unknown) (unknown) (no (unknown) (unknown) Blood Pressure (units (unknown) date) 200/87 H unknown) (unknown) (no (unknown) (unknown) Blood Pressure (units (unknown) date) 204/90 H 05/06/22 unknown) 13:02 (unknown) (no (unknown) (unknown) Cardio (units (unkno wn) date) unknown) (unknown) (no (unknown) (unknown) Cardiovascular (units (unknown) date) unknown) (unknown) (no (unknown) (unknown) Cardiovascular: (units (unknown) date) Reports system unknown) reviewed and no additional complaints, except as (unknown) (no (unknown) (unknown) Chief complaint: (units (unknown) date) Extremity unknown) Problem,Nontraumati c (unknown) (no (unknown) (unknown) Clinical (units (unkno wn) date) Impression: unknown) (unknown) (no (unknown) (unknown) Const (units (unkno wn) date) unknown) (unknown) (no (unknown) (unknown) Constitutional (units (unknown) date) unknown) (unknown) (no (unknown) (unknown) Constitutional: (units (unknown) date) Reports system unknown) reviewed and no additional complaints, except as (unknown) (no (unknown) (unknown) Course (units (unkno wn) date) unknown) (unknown) (no (unknown) (unknown) : 1945 (units (unknown) date) Acct:[id number] unknown) (unknown) (no (unknown) (unknown) Date of Service: (units (unknown) date) 05/06/22 unknown) (unknown) (no (unknown) (unknown) Departure (units (unkn own) date) unknown) (unknown) (no (unknown) (unknown) Discharge Plan (units (unknown) date) unknown) (unknown) (no (unknown) (unknown) Discontinued (units (u nknown) date) Medications unknown) (unknown) (no (unknown) (unknown) Documented By: EFREN (units (unknown) date) unknown) (unknown) (no (unknown) (unknown) Documented By: RB (units (unknown) date) unknown) (unknown) (no (unknown) (unknown) ER Physician: (units ( unknown) date) Tomas Bond D.O. unknown) (unknown) (no (unknown) (unknown) Effort + (units (unkno wn) date) Inspection: normal unknown) respiratory effort (unknown) (no (unknown) (unknown) Emergency Report (units (unknown) date) unknown) (unknown) (no (unknown) (unknown) Esterase (units (unkno wn) date) unknown) (unknown) (no (unknown) (unknown) Exam (units (unkno wn) date) unknown) (unknown) (no (unknown) (unknown) Extrem (units (unkno wn) date) unknown) (unknown) (no (unknown) (unknown) GI (units (unkno wn) date) unknown) (unknown) (no (unknown) (unknown) Gastrointestinal (units (unknown) date) unknown) (unknown) (no (unknown) (unknown) Gastrointestinal: (units (unknown) date) Reports system unknown) reviewed and no additional complaints, except (unknown) (no (unknown) (unknown) General (units (unkno wn) date) unknown) (unknown) (no (unknown) (unknown) General: (units (unkno wn) date) cooperative unknown) (unknown) (no (unknown) (unknown) General: no rashes (units (unknown) date) or lesions noted unknown) (unknown) (no (unknown) (unknown) General: patient (units (unknown) date) alert, patient unknown) awake and moves all extremities (unknown) (no (unknown) (unknown) HENMT (units (unkno wn) date) unknown) (unknown) (no (unknown) (unknown) HPI - Extremity (units (unknown) date) Problem unknown) (unknown) (no (unknown) (unknown) HPI Narrative: (units (unknown) date) unknown) (unknown) (no (unknown) (unknown) Head: normal to (units (unknown) date) inspection and unknown) normocephalic (unknown) (no (unknown) (unknown) Hematologic/Lympha (units (unknown) date) tic unknown) (unknown) (no (unknown) (unknown) History of Present (units (unknown) date) Illness unknown) (unknown) (no (unknown) (unknown) I do recommend (units (unknown) date) that tomorrow you unknown) contact your primary doctor for a follow-up to (unknown) (no (unknown) (unknown) Initial Vital (units ( unknown) date) Signs unknown) (unknown) (no (unknown) (unknown) Initial Vital (units ( unknown) date) Signs: unknown) (unknown) (no (unknown) (unknown) Inspection: normal (units (unknown) date) to inspection unknown) (unknown) (no (unknown) (unknown) Integumentary/Jeaneth (units (unknown) date) sts unknown) (unknown) (no (unknown) (unknown) [facility] (units (unknown) date) [address]) [place] [address] (unknown) (no (unknown) (unknown) Lab Data (units (unkno wn) date) unknown) (unknown) (no (unknown) (unknown) Lab Results (units (un known) date) unknown) (unknown) (no (unknown) (unknown) Labs: (units (unkno wn) date) unknown) (unknown) (no (unknown) (unknown) Last Admin: (units (un known) date) 05/06/22 13:29 unknown) Dose: 4 mg (unknown) (no (unknown) (unknown) Last Admin: (units (un known) date) 05/06/22 19:59 unknown) Dose: 1 bottle (unknown) (no (unknown) (unknown) Left leg pain (units ( unknown) date) unknown) (unknown) (no (unknown) (unknown) MDM - Extremity (units (unknown) date) (Nontraumatic) unknown) (unknown) (no (unknown) (unknown) MDM Narrative (units ( unknown) date) unknown) (unknown) (no (unknown) (unknown) Medical decision (units (unknown) date) making narrative: unknown) (unknown) (no (unknown) (unknown) Medication (units (unk nown) date) Instructions unknown) Recorded (unknown) (no (unknown) (unknown) Mode of arrival: (units (unknown) date) Wheelchair unknown) (unknown) (no (unknown) (unknown) Musculoskeletal (units (unknown) date) unknown) (unknown) (no (unknown) (unknown) Musculoskeletal: (units (unknown) date) Reports system unknown) reviewed and no additional complaints, except as (unknown) (no (unknown) (unknown) Neuro (units (unkno wn) date) unknown) (unknown) (no (unknown) (unknown) Neurologic (units (unk nown) date) unknown) (unknown) (no (unknown) (unknown) Neurologic: (units (un known) date) Reports system unknown) reviewed and no additional complaints, except as (unknown) (no (unknown) (unknown) New (units (unkno wn) date) unknown) (unknown) (no (unknown) (unknown) No Known Drug (units ( unknown) date) Allergies Allergy unknown) Verified 05/06/22 13:02 (unknown) (no (unknown) (unknown) No indication of (units (unknown) date) cellulitis. She unknown) recently had labs drawn she states they were (unknown) (no (unknown) (unknown) Not particularly (units (unknown) date) tender to unknown) palpation. Her left ankle and left knee are (unknown) (no (unknown) (unknown) On Anticoagulants: (units (unknown) date) No unknown) (unknown) (no (unknown) (unknown) Ondansetron HCl (units (unknown) date) (Ondansetron 4 Mg unknown) Odt Prepack) 1 bottle [facility] (unknown) (no (unknown) (unknown) Ondansetron HCl (units (unknown) date) (Ondansetron 4 Mg unknown) Odt) 4 mg SL NOW PRN (unknown) (no (unknown) (unknown) Ordered: (units (unkno wn) date) unknown) (unknown) (no (unknown) (unknown) Orders (units (unkno wn) date) unknown) (unknown) (no (unknown) (unknown) Other: (units (unkno wn) date) unknown) (unknown) (no (unknown) (unknown) Oxygen Delivery (units (unknown) date) Method 05/06/22 unknown) 13:02 (unknown) (no (unknown) (unknown) PRN Reason: Nausea (units (unknown) date) And Vomiting unknown) (unknown) (no (unknown) (unknown) Patient (units (unkno wn) date) Disposition: Home unknown) (unknown) (no (unknown) (unknown) Patient History (units (unknown) date) unknown) (unknown) (no (unknown) (unknown) Patient is a (units (u nknown) date) 77-year-old female unknown) who is here for evaluation of nausea. She is (unknown) (no (unknown) (unknown) Patient: (units (unkno wn) date) Bette David MR#: unknown) M000 (unknown) (no (unknown) (unknown) Prescriptions: (units (unknown) date) unknown) (unknown) (no (unknown) (unknown) Previous Rx's (units ( unknown) date) unknown) (unknown) (no (unknown) (unknown) Pulse Oximetry 94 (units (unknown) date) 05/06/22 13:02 unknown) (unknown) (no (unknown) (unknown) Pulse Oximetry 96 (units (unknown) date) 96 unknown) (unknown) (no (unknown) (unknown) Pulse Oximetry 97 (units (unknown) date) unknown) (unknown) (no (unknown) (unknown) Pulse Rate 71 (units ( unknown) date) 05/06/22 13:02 unknown) (unknown) (no (unknown) (unknown) Pulse Rate 82 80 (units (unknown) date) unknown) (unknown) (no (unknown) (unknown) Pulse Rate 88 (units ( unknown) date) unknown) (unknown) (no (unknown) (unknown) Pulse Rate (units (unk nown) date) unknown) (unknown) (no (unknown) (unknown) Rate: regular rate (units (unknown) date) unknown) (unknown) (no (unknown) (unknown) Referrals: (units (unk nown) date) unknown) (unknown) (no (unknown) (unknown) Related Data (units (u nknown) date) unknown) (unknown) (no (unknown) (unknown) Reported (units (unkno wn) date) tenderness is on unknown) the calf/lateral aspect of the left lower extremity. (unknown) (no (unknown) (unknown) Resp (units (unkno wn) date) unknown) (unknown) (no (unknown) (unknown) Respiratory Rate (units (unknown) date) 18 05/06/22 13:02 unknown) (unknown) (no (unknown) (unknown) Respiratory (units (un known) date) unknown) (unknown) (no (unknown) (unknown) Respiratory: (units (u nknown) date) Reports system unknown) reviewed and no additional complaints, except as (unknown) (no (unknown) (unknown) Review of Systems (units (unknown) date) unknown) (unknown) (no (unknown) (unknown) Rhythm: regular (units (unknown) date) rhythm unknown) (unknown) (no (unknown) (unknown) Sensory Exam: no (units (unknown) date) sensory deficits unknown) noted (unknown) (no (unknown) (unknown) She states that (units (unknown) date) opioid pain unknown) medications make her feel very nauseous. She also (unknown) (no (unknown) (unknown) She was told that (units (unknown) date) she may need an unknown) MRI. That has not been scheduled. She was (unknown) (no (unknown) (unknown) Signed By: (units (unk nown) date) unknown) (unknown) (no (unknown) (unknown) Skin (units (unkno wn) date) unknown) (unknown) (no (unknown) (unknown) Skin/Breast: (units (u nknown) date) Reports system unknown) reviewed and no additional complaints, except as (unknown) (no (unknown) (unknown) Bita Valdez (units (unk nown) date) MD Penny unknown) [Primary Care Provider] (unknown) (no (unknown) (unknown) Smoking Status: (units (unknown) date) Unknown if ever unknown) smoked (unknown) (no (unknown) (unknown) Social History (units (unknown) date) (Reviewed 05/07/22 unknown) @ 02:38 by Tomas Bond DO) (unknown) (no (unknown) (unknown) Source: patient (units (unknown) date) unknown) (unknown) (no (unknown) (unknown) Stand Alone Forms: (units (unknown) date) Patient Portal/API unknown) (unknown) (no (unknown) (unknown) Stated complaint: (units (unknown) date) Nausea, Leg unknown) problems (unknown) (no (unknown) (unknown) Stop: 05/06/22 (units (unknown) date) 19:25 unknown) (unknown) (no (unknown) (unknown) Stop: 05/06/22 (units (unknown) date) 19:26 unknown) (unknown) (no (unknown) (unknown) Substance Use (units ( unknown) date) Type: does not use unknown) (unknown) (no (unknown) (unknown) Symptoms have been (units (unknown) date) going on for months unknown) now. She is been evaluated by her (unknown) (no (unknown) (unknown) Temperature 96.4 F (units (unknown) date) L 05/06/22 13:02 unknown) (unknown) (no (unknown) (unknown) Time Seen by (units (u nknown) date) Provider: 05/06/22 unknown) 18:01 (unknown) (no (unknown) (unknown) Tramadol HCl (units (u nknown) date) (Tramadol 50 Mg unknown) Prepack) 1 bottle [facility] (unknown) (no (unknown) (unknown) Urine Bacteria (units (unknown) date) Moderate (10-30) H unknown) (None) (unknown) (no (unknown) (unknown) Urine Dip (units (unkn own) date) unknown) (unknown) (no (unknown) (unknown) Urine RBC 0-1/hpf (units (unknown) date) (0-5/HPF) unknown) (unknown) (no (unknown) (unknown) Urine Specific (units (unknown) date) [place] 1.015 unknown) (unknown) (no (unknown) (unknown) Urine WBC 0-1/hpf (units (unknown) date) (0-5/HPF) unknown) (unknown) (no (unknown) (unknown) Vital Signs - 8 hr (units (unknown) date) unknown) (unknown) (no (unknown) (unknown) Vital Signs (units (un known) date) unknown) (unknown) (no (unknown) (unknown) Vital signs: (units (u nknown) date) unknown) (unknown) (no (unknown) (unknown) actually been (units ( unknown) date) going on for unknown) several months. She has seen her primary doctor. (unknown) (no (unknown) (unknown) agreement. (units (unk nown) date) unknown) (unknown) (no (unknown) (unknown) alcohol intake (units (unknown) date) frequency: unknown) holidays/special occasions only (unknown) (no (unknown) (unknown) also here for pain (units (unknown) date) in her left leg. unknown) She reports the pain is on the outside of (unknown) (no (unknown) (unknown) as documented (units ( unknown) date) unknown) (unknown) (no (unknown) (unknown) deal with the (units ( unknown) date) discomfort. She unknown) states she is never tried tramadol in the past so (unknown) (no (unknown) (unknown) department for any (units (unknown) date) new symptoms. unknown) (unknown) (no (unknown) (unknown) discuss further (units (unknown) date) workup to include unknown) ordering the MRI. Return to the emergency (unknown) (no (unknown) (unknown) documented (units (unk nown) date) unknown) (unknown) (no (unknown) (unknown) follow-up. She was (units (unknown) date) given return unknown) precautions. She expressed understanding and (unknown) (no (unknown) (unknown) has seen a (units (unkn own) date) steam shovel runner that unknown) she had a positive TADEO but was told that she does (unknown) (no (unknown) (unknown) her left leg. Is (units (unknown) date) somewhat difficult unknown) for her described as sometimes she states (unknown) (no (unknown) (unknown) medication and (units (unknown) date) have to deal with unknown) the side effects of that versus her having to (unknown) (no (unknown) (unknown) not have any pain (units (unknown) date) in her back or in unknown) her upper leg. The pain in her leg is (unknown) (no (unknown) (unknown) not have lupus. (units (unknown) date) She reports no skin unknown) rashes. No specific trauma. (unknown) (no (unknown) (unknown) primary doctor and (units (unknown) date) also by another unknown) emergency department. Today there are no (unknown) (no (unknown) (unknown) regarding the (units ( unknown) date) symptoms. Informed unknown) her that either we need to try some pain (unknown) (no (unknown) (unknown) seen at an outside (units (unknown) date) emergency unknown) department and has a prescription for ketorolac. (unknown) (no (unknown) (unknown) skin changes over (units (unknown) date) the area. Low unknown) suspicion for fracture. Low suspicion for DVT. (unknown) (no (unknown) (unknown) that it is a (units (u nknown) date) cramping sensation unknown) and other times it is a constant pain. She does (unknown) (no (unknown) (unknown) tramadol 50 mg (units (unknown) date) tablet 50 mg PO Q8H unknown) PRN pain #10 tabs 05/06/22 (unknown) (no (unknown) (unknown) tramadol 50 mg (units (unknown) date) tablet unknown) (unknown) (no (unknown) (unknown) unremarkable so (units (unknown) date) that we will hold unknown) on that for now. Had a discussion with her (unknown) (no (unknown) (unknown) unremarkable. (units ( unknown) date) unknown) (unknown) (no (unknown) (unknown) we will give that (units (unknown) date) a try. Will have unknown) the patient contact her primary doctor for Social History date description facility 2022-05-06 00:00 Tobacco smoking consumption unknown ([facility] Vital Signs date measurement value units 2022-05-06 00:00 BMI 37.5 kg/m2 2022-05-06 00:00 BP_diastolic 87 mmHg 2022-05-06 00:00 BP_systolic 200 mmHg 2022-05-06 00:00 heart_rate 80 /min 2022-05-06 00:00 height_metric 162.56 cm 2022-05-06 00:00 height_standard 64 in 2022-05-06 00:00 o2_saturation 97 % 2022-05-06 00:00 respiration_rate 18 /min 2022-05-06 00:00 temperature_metric 35.78 C 2022-05-06 00:00 temperature_standard 96.4 F 2022-05-06 00:00 weight_metric 99.33 kg 2022-05-06 00:00 weight_standard 218.99 lb
--- NOTE | 2022-05-07 10:15 | XRAY Report ---
PROCEDURE: Foot 3 View RT INDICATIONS: R foot bruising TECHNIQUE: 4 views of the foot were acquired. COMPARISON: None FINDINGS: Bones: No fractures or dislocations. No suspicious bony lesions. Hallux valgus and bunion. Mild fi rst MTP degenerative change. Multilevel midfoot degenerative change. Severe first tarsometatarsal deg enerative change. There is subtle Lisfranc fractures of the base of the second, third, and fourth met atarsals without dislocation. These are either acute or subacute. Soft tissues: No tibiotalar joint effusion. Achilles tendon appears normal. IMPRESSION: The Lisfranc fractures of the base of the second, third, and fourth metatarsals without dislocation. These are either acute or subacute. Reviewed by: Dmitry Lyle MD on 05/07/2022 10:14 AM [facility] Approved by: Dmitry Lyle MD on 05/07/2022 10:14 AM [facility] Station ID: [id number]
[2022-05-07 11:28] VITALS: BP 151/85
== END 2022-05-07 11:32 | disposition home or self-care (01) ==
LOC: EDUNIT# → ED 09:13
DX: S92.324A Nondisplaced fracture of second metatarsal bone, right foot, initial encounter for closed fracture (principal); S92.334A Nondisplaced fracture of third metatarsal bone, right foot, initial encounter for closed fracture; S92.344A Nondisplaced fracture of fourth metatarsal bone, right foot, initial encounter for closed fracture; X58.XXXA Exposure to other specified factors, initial encounter; Z87.891 Personal history of nicotine dependence
CPT/HCPCS: 99283; 99284

== ENCOUNTER 2022-05-07 18:37 | Outpatient (CLI) | payer MEDICARE, OTHER | END 2022-05-07 18:38 | disposition critical access hospital (66) | LOC: EMS 18:37 | DX: R11.2 Nausea with vomiting, unspecified (principal); Z74.2 Need for assistance at home and no other household member able to render care; R29.6 Repeated falls; Z91.81 History of falling | CPT/HCPCS: A0425; A0427 ==

== ENCOUNTER 2022-05-07 18:54 | Inpatient (IN) | payer MEDICARE, OTHER ==
--- OUTSIDE RECORDS SUMMARY | 2022-05-07 19:05 | EXTERNAL MEDICAL SUMMARY RPT | Continuity of Care Document ---
:1945 Author Organization [facility] Address [address] [place] [address] Phone Care Team Providers Name Role Phone Unavailable Unavailable Unavailable Bita Valdez Unavailable Unavailable [facility] Unavailable Unavailable Shirley, Provider Unavailable Unavailable Allergies and Intolerances date description facility type (no date) No Known Drug Allergies [facility] (unkn own) Encounters No information. Functional Status No information. Immunizations No information. Medications date description facility 2022-05-06 00:00 Tramadol [facility] Problems date description facility 2022-02-12 00:00 [...] wn) date) unknown) (unknown) (no (unknown) (unknown) [id number] (units (unkno wn) date) unknown) (unknown) (no [...] (unknown) (unknown) : 1945 (units (unknown) date) Acct:[id number] unknown) (unknown) (no (unknown) (unknown) Date of [...] date) Signs: unknown) (unknown) (no (unknown) (unknown) [facility] (units (unknown) date) [address] unknown) [place] [address] (unknown) (no (unknown) (unknown) Ketones (units (unkno [...] (unknown) (unknown) Urine Specific (units (unknown) date) [place] 1.015 unknown) (unknown) (no (unknown) (unknown) Urine [...] wn) date) unknown) (unknown) (no (unknown) (unknown) [id number] (units (unkno wn) date) unknown) (unknown) (no [...] (unknown) (unknown) : 1945 (units (unknown) date) Acct:[id number] unknown) (unknown) (no (unknown) (unknown) Date of [...] date) Signs: unknown) (unknown) (no (unknown) (unknown) [facility] (units (unknown) date) [address] [place] [address] Street unknown) [place] [address] (unknown) (no (unknown) (unknown) Lab Data (units [...] (unknown) (unknown) Urine Specific (units (unknown) date) [place] 1.015 unknown) (unknown) (no (unknown) (unknown) Urine [...] (unknown) <Electronically (units (unknown) date) signed by Tomsa Bond D.O.> (unknown) (no (unknown) (unknown) 05/06/22 [...] wn) date) unknown) (unknown) (no (unknown) (unknown) [id number] (units (unkno wn) date) unknown) (unknown) (no [...] (unknown) (unknown) : 1945 (units (unknown) date) Acct:[id number] unknown) (unknown) (no (unknown) (unknown) Date of [...] date) sts unknown) (unknown) (no (unknown) (unknown) [facility] (units (unknown) date) [address] unknown) [place] [address] (unknown) (no (unknown) (unknown) Lab Data (units [...] 4 Mg unknown) Odt Prepack) 1 bottle [facility] (unknown) (no (unknown) (unknown) Ondansetron [...] (Tramadol 50 Mg unknown) Prepack) 1 bottle [facility] (unknown) (no (unknown) (unknown) Urine Bacteria (units (unknown) date) Moderate (10-30) H unknown) (None) (unknown) (no (unknown) (unknown) Urine Dip (units (unkn own) date) unknown) (unknown) (no (unknown) (unknown) Urine RBC 0-1/hpf (units (unknown) date) (0-5/HPF) unknown) (unknown) (no (unknown) (unknown) Urine Specific (units (unknown) date) [place] 1.015 unknown) (unknown) (no (unknown) (unknown) Urine [...] has seen a (units (unkn own) date) 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
[2022-05-07] MEDS ORDERED: SODIUM CHLORIDE 0.9% 1,000 ML IV STA (19:13)
[2022-05-07] MEDS ORDERED: ONDANSETRON 4 MG/2 ML VIAL IVP STA (19:13)
[2022-05-07 19:30] LABS: BASOPHILS % (AUTO) 0.1 %; EOSINOPHILS % (AUTO) 0.3 %; HGB - HEMOGLOBIN 13.5 g/dL (12.0-16.0); LYMPHOCYTES # (AUTO) 0.8 10^3/uL (1.5-3.5); MEAN CORPUSCULAR HEMOGLOBIN 30.9 pg (27.0-31.0); MEAN CORPUSCULAR HGB CONC 35.5 g/dL (32.0-36.0); MEAN PLATELET VOLUME 10.5 fL (7.9-10.8); MONOCYTES # (AUTO) 1.2 10^3/uL (0.0-1.0); MONOCYTES % (AUTO) 7.4 %; NEUTROPHILS # (AUTO) 13.6 10^3/uL (1.5-6.6); NEUTROPHILS % (AUTO) 86.6 %; PLT - PLATELET COUNT 220 10^3/uL (130-450); RED BLOOD COUNT 4.37 10^6/uL (4.20-5.40); RED CELL DISTRIBUTION WIDTH 12.2 % (12.0-15.0); WHITE BLOOD COUNT 15.7 x10^3/uL (4.8-10.8)
--- NOTE | 2022-05-07 19:33 | ED Physician Documentation ---
History of Present Illness - Stated complaint Stated Complaint: VOMITING/NAUSEA - Chief complaint Chief Complaint: General - History obtained from History obtained from: Patient - Additonal information Additional information: 77-year-old woman with history of anxiety, localized lung cancer in remission. She lives alone and falls frequently. She fell 2 days ago breaking her foot. She was seen by an partner earlier in the day for this and placed in a walking boot. SNF placement was considered, but the patient declined due to cost. She returns tonight feeling nauseous, being very afraid about being alone, having some abdominal pain with decreased bowel movements. She denies headache. She has not been sleeping or resting. 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 HEENT: Cataracts - Present Medications Home Medications: Ambulatory Orders Medication Instructions Recorded Confirmed Aspirin [Aspir-Low] 81 mg PO DAILY 09/11/15 05/07/22 Chlorthalidone 25 mg PO BID 09/11/15 05/07/22 carvediloL [Coreg] 6.25 mg PO BID 09/11/15 05/07/22 Olmesartan Medoxomil [Benicar] 20 mg PO QPM 12/23/20 05/07/22 Ketorolac [Toradol] 10 mg PO Q6H PRN #30 tablet 05/04/22 05/07/22 - Allergies Allergies/Adverse Reactions: Allergies Allergy/AdvReac Type Severity Reaction Status Date / Time No Known Drug Allergies Allergy Verified 05/04/22 00:15 - Social History Does the pt smoke?: No Smoking Status: Former smoker Does the pt drink ETOH?: No Does the pt have substance abuse?: No - Immunizations Immunizations are current?: Yes - POLST Patient has POLST: No PD ED PE NORMAL - Vitals Vital signs reviewed: Yes - General General: Alert and oriented X 3, No acute distress, Other (She has a vomit bag at the bedside but no active vomiting) - HEENT HEENT: PERRL, EOMI, Moist mucous membranes - Neck Neck: Supple, no meningeal sign, No bony TTP - Cardiac Cardiac: RRR, No murmur - Respiratory Respiratory: No respiratory distress, Clear bilaterally - Abdomen Abdomen: Normal bowel sounds, Soft, Other (Slightly hyperactive bowel sounds with protuberant abdomen that is nontender.) - Back Back: No CVA TTP, No spinal TTP - Derm Derm: Normal color, Warm and dry - Extremities Extremities: No edema, No calf tenderness / cord - Neuro Neuro: Alert and oriented X 3, No motor deficit, No sensory deficit, Normal speech Eye Opening: Spontaneous Motor: Obeys Commands Verbal: Oriented GCS Score: 15 Results - Vitals Vitals: Vital Signs - 24 hr 05/07/22 05/07/22 19:01 21:04 Temperature 37.2 C Heart Rate 65 81 Respiratory 17 24 Rate Blood Pressure 174/65 H 136/106 H O2 Saturation 99 95 Oxygen O2 Source Room air - Labs Labs: Laboratory Tests 05/07/22 05/07/22 19:22 19:22 WBC 15.7 H RBC 4.37 Hgb 13.5 Hct 38.0 MCV 87.0 MCH 30.9 MCHC 35.5 RDW 12.2 Plt Count 220 MPV 10.5 Neut # (Auto) 13.6 H Lymph # (Auto) 0.8 L [place] # (Auto) 1.2 H Eos # (Auto) 0.0 Baso # (Auto) 0.0 Absolute Nucleated RBC 0.00 Nucleated RBC % 0.0 Sodium 112 L* Potassium 3.7 Chloride 76 L* Carbon Dioxide 24 Anion Gap 12.0 BUN 24 H Creatinine 1.1 H Estimated GFR (MDRD) 48 L Glucose 109 H Calcium 8.6 Magnesium 1.6 L Total Bilirubin 1.4 H AST 48 H ALT 28 Alkaline Phosphatase 61 Total Protein 7.0 Albumin 4.1 Globulin 2.9 Albumin/Globulin Ratio 1.4 Ethyl Alcohol < 5.0 PD Medical Decision Making - ED course ED course: 77-year-old woman presents with a known metatarsal fracture, she is scared nauseous and having abdominal pain. SNF placement was considered earlier in the day but when she was sent home after she learned the tyler of SNF placement. We will work-up for medical causes of her both symptoms, but she may just need placement. I had a long Talk with her son by phone and I will update him with results after diagnostics are done. She was found to have a 4.4 cm AAA and both the patient and son were notified of her on the need for surveillance and eventual vascular surgery consultation for this, head CT showed atrophy, labs were notable for modest hypomagnesemia and severe hyponatremia. Given the hyponatremia she will need to be admitted and I spoke with a telehealth physician for this at 9:59 PM. Departure - Departure Disposition: [facility] DC/Xfer Clinical Impression: Hyponatremia, Delirium, Vomiting, AAA (abdominal aortic aneurysm) Condition: Serious
[2022-05-07 20:00] LABS: ALBUMIN 4.1 g/dL (3.2-5.5); ALBUMIN/GLOBULIN RATIO 1.4 (1.0-2.2); ALKALINE PHOSPHATASE 61 IU/L (42-121); ALT ALANINE AMINOTRANSFERASE 28 IU/L (10-60); AST ASPARTATE AMINOTRANSFERASE 48 IU/L (10-42); BILIRUBIN,TOTAL 1.4 mg/dL (0.2-1.0); BUN - BLOOD UREA NITROGEN 24 mg/dL (6-20); CALCIUM 8.6 mg/dL (8.5-10.3); CARBON DIOXIDE - CO2 24 mmol/L (21-32); CREATININE 1.1 mg/dL (0.4-1.0); ETOH - ETHANOL < 5.0 mg/dL; GFR - MDRD 48 (>89); GLUCOSE 109 mg/dL (70-100); MAGNESIUM 1.6 mg/dL (1.7-2.8); POTASSIUM 3.7 mmol/L (3.5-5.0)
[2022-05-07 20:03] LABS: CHLORIDE 76 mmol/L (101-111); SODIUM 112 mmol/L (135-145)
[2022-05-07] MEDS ORDERED: iohexoL-300 100 ML VIAL ONE (20:05)
--- NOTE | 2022-05-07 20:47 | CT Report ---
PROCEDURE: HEAD WO INDICATIONS: ams falls TECHNIQUE: Noncontrast 4.5 mm thick angled axial sections acquired from the foramen magnum to the vertex. For r adiation dose reduction, the following was used: automated exposure control, adjustment of mA and/or kV according to patient size. COMPARISON: None. FINDINGS: Image quality: Excellent. CSF spaces: Basal cisterns are patent. No extra-axial fluid collections. Ventricles are normal in size and shape. Brain: No midline shift. No intracranial masses or hemorrhage. Trevino-white matter interface is norm al. Skull and face: Calvarium and visualized facial bones are intact, without suspicious lesions. Sinuses: Visualized sinuses and mastoids are clear. IMPRESSION: 1. No acute intracranial process. 2. Moderate atrophy and chronic microvascular ischemic changes. Reviewed by: Brenda Weaver MD on 05/07/2022 8:46 PM PST Approved by: Brenda Weaver MD on 05/07/2022 8:46 PM [facility] Station ID: [id number]
--- NOTE | 2022-05-07 20:54 | CT Report ---
PROCEDURE: ABDOMEN/PELVIS W INDICATIONS: IV only, abd pain CONTRAST: 100mL Omni 300 TECHNIQUE: After the administration of IV contrast, 5 mm thick sections acquired from the diaphragms to the symp hysis. 5 mm thick coronal and sagittal reformats were acquired. For radiation dose reduction, the f ollowing was used: automated exposure control, adjustment of mA and/or kV according to patient size. COMPARISON: CT abdomen pelvis 01/11/2020 FINDINGS: Image quality: Excellent. ABDOMEN: Lung bases: Lung bases are clear. Heart size is normal. Solid organs: Liver and spleen are normal in size and enhancement. Gallbladder is unremarkable Esau iary system is non dilated. Pancreas enhances normally. No adrenal nodules. Kidneys demonstrate no rmal size and enhancement, without hydronephrosis. Simple scattered right renal cysts. Peritoneum and bowel: Bowel loops demonstrate normal wall thickness and caliber. Colonic diverticula r present. No free fluid or air. Nodes and vessels: No retroperitoneal or mesenteric adenopathy by size criteria. Aorta measures ane urysmal dilation within the infrarenal portion measuring 4.4 cm. This has increased from 2.9 cm in 20 20. Significant atherosclerotic calcifications are present. Miscellaneous: Right fat-containing ventral hernia without evidence of incarceration or strangulation . PELVIS: Genitourinary: Bladder wall thickness is normal. Miscellaneous: No inguinal hernias or adenopathy. Bones: No suspicious bony lesions. No vertebral body compression fractures. IMPRESSION: Diverticulosis. Infrarenal aortic aneurysmal dilation increased compared to prior exam now measuring 4.4 cm. Close in terval imaging and clinical follow-up is recommended. Reviewed by: Brenda Weaver MD on 05/07/2022 8:53 PM PST Approved by: Brenda Weaver MD on 05/07/2022 8:53 PM PST Station ID: [id number]
[2022-05-07] MEDS ORDERED: MAGNESIUM SULFATE 2 GRAM 2 GM/50 ML BAG IV ONE (20:59)
[2022-05-07] MEDS ORDERED: iohexoL-300 100 ML VIAL IVP ONE (21:09)
--- NOTE | 2022-05-07 22:02 | HISTORY & PHYSICAL EXAMINATION ---
Chief Complaint - Chief Complaint Chief Complaint: Nausea/Vomiting History of Present Illness - Admitted From Admitted From:: ER - History of Present Illness HPI Comment/Other: 77 yo F with h/o localized Lung CA in remission, anxiety, frequent Falls, recent fracture nonoperable, HTN, HLD, PVD presented to the ER with c/o 3 week h/o N/V. Pt has had LBP with LLE pain x 1 month. She has been given multiple pain med ications for this and these have been causing her to have nausea. She has not eaten well d/t N/V x 3 weeks. +subjective F/C. No abdo pain. No dysuria. She has constipation, for which she takes fiber supplements. +increasing weakness. Last week, pt had a fall from slipping out of her bed, forward to the ground. She had R ankle discoloration, so came to ER. Pt dx'd with R ankle fracture, Ortho said that it was nonoperable and walking boot was placed. In the ER, Xray: 4.4 cm AAA, Na 112, Mg 1.6, Bili 1.4, WBC 15.3. Pt was given 1L NS bolus in the ER. 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: Tubal ligation HEENT: reports: Cataracts - POLST Patient has POLST: No Meds/Allgy - Home Medications Home Medications: Ambulatory Orders Medication Instructions Recorded Confirmed Aspirin [Aspir-Low] 81 mg PO DAILY 09/11/15 05/07/22 Chlorthalidone 25 mg PO BID 09/11/15 05/07/22 carvediloL [Coreg] 6.25 mg PO BID 09/11/15 05/07/22 Olmesartan Medoxomil [Benicar] 20 mg PO QPM 12/23/20 05/07/22 Ketorolac [Toradol] 10 mg PO Q6H PRN #30 tablet 05/04/22 05/07/22 - Allergies Allergies/Adverse Reactions: Allergies Allergy/AdvReac Type Severity Reaction Status Date / Time No Known Drug Allergies Allergy Verified 05/04/22 00:15 Review of Systems - All Other Systems All Other Systems: reports: Reviewed and negative Exam - Vital Signs Reviewed Vital Signs: Yes Vital Signs: Vital Signs x48h Temp Pulse Resp BP Pulse Ox 05/07/22 21:04 81 24 136/106 H 95 05/07/22 19:01 37.2 C 65 17 174/65 H 99 - Physical Exam General Appearance: positive: No acute distress, Alert Eyes Bilateral: positive: PERRL, EOMI, No scleral icterus ENT: positive: Dry mucous membranes Respiratory: positive: No respiratory distress, Breath sounds nml Cardiovascular: positive: Regular rate & rhythm Abdomen: positive: Non-tender Skin: positive: Dry Extremities: positive: Full ROM, No pedal edema, Other (R foot walking boot) Neurologic/Psychiatric: positive: Oriented x3, CN's nml (2-12), Mood/affect nml Conclusion/Plan - Problem List (1) Hyponatremia Conclusion/Plan: Hyponatremia, symptomatic Nausea/Vomiting Decreased PO intake -On Chlorthalidone and Olmesartan -pt received IVF in the ER -continue IVF -hold Chlorthalidone, Olmesartan -anti-emetics -clear liquid diet, advance as tolerated -goal for slow Na correction; monitor Na Anxiety -Atarax PRN Frequent Falls Recent R foot fracture, nonoperable LBP with LLE pain -continue R foot walking boot -F/U with outpatient Ortho -PT/OT -pain meds -CM consult HTN HLD PVD -hold home medications: Chlorthalidone, Olmesartan d/t low Na -continue homem medications: Coreg -Hydralazine PRN Localized Lung CA in remission -continue outpatient F/U - Lab Results Fish Bones: 05/07/22 19:22 05/07/22 19:22
[2022-05-07 22:35] LABS: B. PARAPERTUSSIS- RESP PCR PAN NOT DETECTED; B. PERTUSSIS- RESP PCR PANEL NOT DETECTED; C. PNEUMONIAE- RESP PCR PANEL NOT DETECTED; CORONAVIRUS 229E-RESP PCR NOT DETECTED; CORONAVIRUS HKU1-RESP PCR NOT DETECTED; CORONAVIRUS NL63-RESP PCR NOT DETECTED; CORONAVIRUS OC43-RESP PCR NOT DETECTED; HUMAN METAPNEUMOVIRUS NOT DETECTED; INFLUENZA A- RESP PCR PANEL NOT DETECTED; INFLUENZA B - RESP PCR PANEL NOT DETECTED; M. PNEUMONIAE- RESP PCR PANEL NOT DETECTED; PARAINFLUENZA VIRUS 1 NOT DETECTED; PARAINFLUENZA VIRUS 2 NOT DETECTED; PARAINFLUENZA VIRUS 3 NOT DETECTED; PARAINFLUENZA VIRUS 4 NOT DETECTED; RHINOVIRUS/ENTEROVIRUS NOT DETECTED; RSV- RESP PCR PANEL NOT DETECTED; SARS-CoV-2 -RESP PCR PANEL NOT DETECTED
[2022-05-07] MEDS ORDERED: SODIUM CHLORIDE FLUSH 0.9% 10 ML SYRINGE IVP PRN (22:51)
[2022-05-07] MEDS ORDERED: hydrALAZINE 10 MG TABLET PO PRN (23:00)
[2022-05-08] MEDS: SODIUM CHLORIDE 0.9% 1,000 ML IV SCH ×2 (01:37→13:35)
[2022-05-08] MEDS: SODIUM CHLORIDE FLUSH 0.9% 10 ML SYRINGE IVP SCH ×3 (01:38→16:39)
[2022-05-08] MEDS: traMADol 50 MG TABLET PO PRN ×3 (02:33→23:57)
[2022-05-08] MEDS: ONDANSETRON ODT 4 MG TABLET TL PRN (02:33)
[2022-05-08 05:57] LABS: BASOPHILS % (AUTO) 0.2 %; EOSINOPHILS # (AUTO) 0.1 10^3/uL (0.0-0.7); EOSINOPHILS % (AUTO) 0.8 %; HCT - HEMATOCRIT 35.9 % (37.0-47.0); HGB - HEMOGLOBIN 12.7 g/dL (12.0-16.0); LYMPHOCYTES # (AUTO) 0.8 10^3/uL (1.5-3.5); LYMPHOCYTES % (AUTO) 7.9 %; MEAN CORPUSCULAR HEMOGLOBIN 31.1 pg (27.0-31.0); MEAN CORPUSCULAR HGB CONC 35.4 g/dL (32.0-36.0); MEAN PLATELET VOLUME 10.8 fL (7.9-10.8); MONOCYTES # (AUTO) 1.1 10^3/uL (0.0-1.0); MONOCYTES % (AUTO) 11.1 %; NEUTROPHILS # (AUTO) 8.1 10^3/uL (1.5-6.6); PLT - PLATELET COUNT 189 10^3/uL (130-450); RED BLOOD COUNT 4.08 10^6/uL (4.20-5.40); RED CELL DISTRIBUTION WIDTH 12.4 % (12.0-15.0); WHITE BLOOD COUNT 10.3 x10^3/uL (4.8-10.8)
[2022-05-08 06:06] LABS: CALCIUM 8.4 mg/dL (8.5-10.3); CREATININE 1.1 mg/dL (0.4-1.0); POTASSIUM 3.2 mmol/L (3.5-5.0)
[2022-05-08] MEDS: ASPIRIN EC 81 MG TABLET PO SCH (08:56)
[2022-05-08] MEDS: ENOXAPARIN 40 MG/0.4 ML SYRINGE SUBQ SCH (08:56)
[2022-05-08] MEDS: carvediloL 12.5 MG TABLET PO SCH ×2 (08:56→21:30)
[2022-05-08 09:14] LABS: ALBUMIN 3.6 g/dL (3.2-5.5); BILIRUBIN,DIRECT 0.3 mg/dL (0.1-0.5); BILIRUBIN,TOTAL 1.2 mg/dL (0.2-1.0); TOTAL PROTEIN 6.3 g/dL (6.7-8.2)
[2022-05-08] MEDS ORDERED: IPRATROPIUM/ALBUTEROL 3 ML NEB INH PRN (12:02)
[2022-05-08] MEDS: IPRATROPIUM/ALBUTEROL 3 ML NEB INH SCH ×3 (13:03→19:59)
[2022-05-08] MEDS: ONDANSETRON 4 MG/2 ML VIAL IVP PRN ×2 (13:30→18:47)
--- NOTE | 2022-05-08 15:40 | PHARMACY PROGRESS NOTE ---
- Best Possible Medication History Admit Date and Time: 05/07/22 1152 Processed by: Pharmacy Medication History completed: Yes Patient Interview: Completed Secondary Source(s): Insurance records As the person ultimately responsible for medication therapy, providers are able to order a medication from an existing home medication list in [facility] via the "Reconcile Routine" prior to Confirmation of that medication by help desk support. Such practice is discouraged except when the physician, in their clinical judgment, deems that a medical need exists for a medication without regard to previous use.
[2022-05-08] MEDS: POTASSIUM CHLOR 10 MEQ/100 ML 10 MEQ/100 ML BAG IV SCH ×3 (16:38→18:49)
--- NOTE | 2022-05-08 18:35 | PROVIDER PROGRESS NOTE ---
Assessment/Plan - Problem List (1) Hyponatremia Assessment/Plan: This is likely due to N/V, and decreased PO intake, and from being on Chlorthalidone Plan: -continue IVF -hold Chlorthalidone -anti-emetics prn -clear liquid diet, advance as tolerated -goal for slow Na correction; monitor Na q12h (2) N/V She claims that she gets nauseated when she is constipated and therefore needs to take a big dose of psyllium every morning, which she has not had since being admitted. Then she had a bowel movement today anyway. She was still mildly nauseated afterward but asking for more solid food. Plan: -anti-emetics prn -clear liquid diet, advance as tolerated (3) Orthostatic Hypotension With a history of frequent falls, orthostatic vital signs were checked and she has significant orthostasis. This is not surprising giving her nausea vomiting and hyponatremia suggesting volume depletion Plan: -hold home medications: Chlorthalidone, Olmesartan d/t low Na -continue home medications: Coreg but with hiolding parameters (4) Frequent Falls This caused a recent R foot fracture, nonoperable. Also has possibly caused LBP with LLE pain Plan: -continue R foot walking boot -F/U with outpatient Ortho -PT/OT -pain meds Check Orthostatic VS (5) R foot fracture It is nonoperable and she needs to wear a boot Plan: PT and OT evaluation Pain meds as needed (6) HTN Her supine blood pressure is somewhat high but she is extremely orthostatic today. Plan: We are holding her olmesartan and thiazide diuretic since it is likely causing the hyponatremia Will slowly resume her BP meds but not the thiazide (7) PVD AAA was reported by imaging Plan: We will resume any cardiovascular medications that she is on, like aspirin, after the medication list has been reconciled by pharmacy (8) Anxiety Plan: Anxiolytics PRN Resume any home meds to treat this, after the list is reconciled by pharmacy (9) Hx Lung CA Plan: Continue outpatient F/U - Current Meds Current Meds: Current Medications Generic Name Dose Route Start Last Admin Trade Name Freq PRN Reason Stop Dose Admin Albuterol/Ipratropium 3 ml 05/08/22 12:02 05/08/22 13:03 Ipratropium/Albuterol 3 Ml Neb INH 3 ml RTTID ROMERO Administration Aspirin 81 mg 05/08/22 09:00 05/08/22 08:56 Aspirin Ec 81 Mg Tablet PO 81 mg DAILY ROMERO Administration Carvedilol 6.25 mg 05/08/22 09:00 05/08/22 08:56 Carvedilol 12.5 Mg Tablet PO 6.25 mg BID ROMERO Administration Enoxaparin Sodium 40 mg 05/08/22 09:00 05/08/22 08:56 Enoxaparin 40 Mg/0.4 Ml Syringe SUBQ 40 mg DAILY ROMERO Administration Sodium Chloride 1,000 mls @ 75 mls/hr 05/07/22 23:00 05/08/22 13:35 Normal Saline 0.9% IV 75 mls/hr .[id number] ROMERO Administration Potassium Chloride 10 meq in 100 mls @ 100 mls/hr 05/08/22 17:00 05/08/22 17:24 Potassium Chloride IV 05/08/22 19:59 100 mls/hr Q1H ROMERO Administration Ondansetron HCl 4 mg 05/07/22 22:53 05/08/22 02:33 Ondansetron Odt 4 Mg Tablet TL 4 mg Q6HR PRN Administration Nausea / Vomiting Ondansetron HCl 4 mg 05/07/22 22:53 05/08/22 13:30 Ondansetron 4 Mg/2 Ml Vial IVP 4 mg Q6HR PRN Administration Nausea / Vomiting Sodium Chloride 10 ml 05/08/22 01:00 05/08/22 16:39 Sodium Chloride Flush 0.9% 10 Ml Syringe IVP 10 ml 0100,0900,1700 ROMERO Administration Tramadol HCl 50 mg 05/07/22 23:03 05/08/22 13:30 Tramadol 50 Mg Tablet PO 50 mg Q6HR PRN Administration PAIN - Lab Result Fish Bone Diagrams: 05/09/22 04:37 05/09/22 04:37 - Additional Planning My Orders: My Active Orders 05/08/22 12:01 Miscellaenous Nursing Order [RC] ONCE 05/08/22 12:02 Nebulizer/MDI Tx. [RC] QID Resp Teach Nebulizer/MDI [RC] .ONCE Ipratropium/Albuterol [Duoneb] 3 ml INH Q4HR PRN Ipratropium/Albuterol [Duoneb] 3 ml INH RTTID 05/08/22 12:04 Orthostatic [Vital Signs - Orthostatic] [RC] DAILY 05/08/22 12:07 Home CPAP/BiPAP [RC] .ONCE 05/08/22 Dinner DIET [Dysphagia - Minced and Moist] [DIET] 05/08/22 17:00 Potassium Chlor 10 Meq/100 ml [Potassium Chloride] 10 meq in 100 ml IV Q1H 05/08/22 17:15 Telemetry- [RC] Q4HR 05/08/22 17:16 EKG - Electrocardiogram [RC] .ONCE 05/09/22 05:00 BMP - BASIC METABOLIC PANEL [CHEM] DAILYLAB CBC - COMP BLD CT W/AUTO DIFF [HEME] DAILYLAB MAGNESIUM [CHEM] DAILYLAB 05/09/22 09:00 Psyllium [Metamucil] 1 packet PO DAILY 05/10/22 05:00 BMP - BASIC METABOLIC PANEL [CHEM] DAILYLAB CBC - COMP BLD CT W/AUTO DIFF [HEME] DAILYLAB 05/11/22 05:00 BMP - BASIC METABOLIC PANEL [CHEM] DAILYLAB CBC - COMP BLD CT W/AUTO DIFF [HEME] DAILYLAB Subjective - Subjective Patient Reports: Feeling Better (She thinks her nausea and vomiting was caused by constipation not a virus. Then she had a BM today but was slightly nauseated afterwards. She did get Zofran.) Objective Vital Signs: Vital Signs - 24 hr 05/07/22 05/07/22 05/08/22 19:01 21:04 00:30 Temperature 37.2 C 36.2 C L Heart Rate 65 81 Heart Rate [ 82 Brachial] Heart Rate [ Supine] Respiratory 17 24 24 Rate Blood Pressure 174/65 H 136/106 H Blood Pressure 151/71 H [Left Brachial artery] Blood Pressure [Right Brachial artery] Blood Pressure [Supine] O2 Saturation 99 95 98 05/08/22 05/08/22 05/08/22 04:33 08:39 11:15 Temperature 36.4 C L 36.3 C L Heart Rate Heart Rate [ 79 82 Brachial] Heart Rate [ 73 Supine] Respiratory 18 20 Rate Blood Pressure Blood Pressure [Left Brachial artery] Blood Pressure 144/67 H 153/59 H [Right Brachial artery] Blood Pressure 134/75 H [Supine] O2 Saturation 96 96 1205/08/22 05/08/22 11:48 13:04 15:40 Temperature 36.4 C L 36.4 C L Heart Rate 90 Heart Rate [ 69 69 Brachial] Heart Rate [ Supine] Respiratory 18 18 17 Rate Blood Pressure Blood Pressure 148/61 H [Left Brachial artery] Blood Pressure 134/75 H [Right Brachial artery] Blood Pressure [Supine] O2 Saturation 97 95 Oxygen O2 Source Room air I&O (Last 24 Hrs): Intake and Output Totals x24h 05/06/22 05/07/22 05/08/22 23:59 23:59 23:59 Intake Total 1050 1834.167 Output Total 150 Balance 1050 1684.167 General: Alert, Oriented x3 HEENT: Mucous membr. moist/pink Neck: Supple, No JVD Neuro: Alert, Non Focal, Other (Poor historian, seems somewhat confused) Cardiovascular: Regular rate, No murmurs Respiratory: No respiratory distress, Breath sounds nml (Distant breath sounds due to obesity) Abdomen: Normal bowel sounds, Soft, No tenderness, Other (Obese) Extremities: No clubbing, No edema - Results Results: Laboratory Results WBC 10.3 x10^3/uL (4.8-10.8) 05/08/22 05:50 RBC 4.08 10^6/uL (4.20-5.40) L 05/08/22 05:50 Hgb 12.7 g/dL (12.0-16.0) 05/08/22 05:50 Hct 35.9 % (37.0-47.0) L 05/08/22 05:50 MCV 88.0 fL (81.0-99.0) 05/08/22 05:50 MCH 31.1 pg (27.0-31.0) H 05/08/22 05:50 MCHC 35.4 g/dL (32.0-36.0) 05/08/22 05:50 RDW 12.4 % (12.0-15.0) 05/08/22 05:50 Plt Count 189 10^3/uL (130-450) 05/08/22 05:50 MPV 10.8 fL (7.9-10.8) 05/08/22 05:50 Neut # (Auto) 8.1 10^3/uL (1.5-6.6) H 05/08/22 05:50 Lymph # (Auto) 0.8 10^3/uL (1.5-3.5) L 05/08/22 05:50 [place] # (Auto) 1.1 10^3/uL (0.0-1.0) H 05/08/22 05:50 Eos # (Auto) 0.1 10^3/uL (0.0-0.7) 05/08/22 05:50 Baso # (Auto) 0.0 10^3/uL (0.0-0.1) 05/08/22 05:50 Absolute Nucleated RBC 0.00 x10^3/uL 05/08/22 05:50 Nucleated RBC % 0.0 /100WBC 05/08/22 05:50 Sodium 118 mmol/L (135-145) L* 05/08/22 17:21 Potassium 3.2 mmol/L (3.5-5.0) L 05/08/22 05:50 Chloride 81 mmol/L (101-111) L 05/08/22 05:50 Carbon Dioxide 27 mmol/L (21-32) 05/08/22 05:50 Anion Gap 9.0 (6-13) 05/08/22 05:50 BUN 18 mg/dL (6-20) 05/08/22 05:50 Creatinine 1.1 mg/dL (0.4-1.0) H 05/08/22 05:50 Estimated GFR (MDRD) 48 (>89) L 05/08/22 05:50 Glucose 90 mg/dL (70-100) 05/08/22 05:50 Calcium 8.4 mg/dL (8.5-10.3) L 05/08/22 05:50 Magnesium 2.1 mg/dL (1.7-2.8) 05/08/22 05:00 Total Bilirubin 1.2 mg/dL (0.2-1.0) H 05/08/22 05:50 Direct Bilirubin 0.3 mg/dL (0.1-0.5) 05/08/22 05:50 AST 51 IU/L (10-42) H 05/08/22 05:50 ALT 26 IU/L (10-60) 05/08/22 05:50 Alkaline Phosphatase 55 IU/L (42-121) 05/08/22 05:50 Total Protein 6.3 g/dL (6.7-8.2) L 05/08/22 05:50 Albumin 3.6 g/dL (3.2-5.5) 05/08/22 05:50 Globulin 2.7 g/dL (2.1-4.2) 05/08/22 05:50 Albumin/Globulin Ratio 1.4 (1.0-2.2) 05/07/22 19:22 Nasal Adenovirus (PCR) NOT DETECTED 05/07/22 21:39 Nasal B. parapertussis DNA (PCR) NOT DETECTED 05/07/22 21:39 Nasal Coronavir 229E PCR NOT DETECTED 05/07/22 21:39 Nasal Coronavir HKU1 PCR NOT DETECTED 05/07/22 21:39 Nasal Coronavir NL63 PCR NOT DETECTED 05/07/22 21:39 Nasal Coronavir OC43 PCR NOT DETECTED 05/07/22 21:39 Nasal Enterovir/Rhinovir PCR NOT DETECTED 05/07/22 21:39 Nasal Influenza B PCR NOT DETECTED 05/07/22 21:39 Nasal Influenza A PCR NOT DETECTED 05/07/22 21:39 Nasal Parainfluen 1 PCR NOT DETECTED 05/07/22 21:39 Nasal Parainfluen 2 PCR NOT DETECTED 05/07/22 21:39 Nasal Parainfluen 3 PCR NOT DETECTED 05/07/22 21:39 Nasal Parainfluen 4 PCR NOT DETECTED 05/07/22 21:39 Nasal RSV (PCR) NOT DETECTED 05/07/22 21:39 Nasal B.pertussis DNA PCR NOT DETECTED 05/07/22 21:39 Nasal C.pneumoniae (PCR) NOT DETECTED 05/07/22 21:39 Ren Human Metapneumo PCR NOT DETECTED 05/07/22 21:39 Nasal M.pneumoniae (PCR) NOT DETECTED 05/07/22 21:39 Nasal SARS-CoV-2 (PCR) NOT DETECTED 05/07/22 21:39 Ethyl Alcohol < 5.0 mg/dL 05/07/22 19:22 - Procedures Procedures: Procedures REPLACEMENT OF LEFT LENS WITH SYNTH SUB, PERC APPROACH (01/21/17) REPLACEMENT OF RIGHT LENS WITH SYNTH SUB, PERC APPROACH (04/08/17)
[2022-05-08] MEDS: ACETAMINOPHEN 325 MG TABLET PO PRN (23:56)
[2022-05-09] MEDS: SODIUM CHLORIDE 0.9% 1,000 ML IV SCH ×2 (02:53→16:03)
[2022-05-09] MEDS: ONDANSETRON 4 MG/2 ML VIAL IVP PRN (02:53)
[2022-05-09] MEDS: SODIUM CHLORIDE FLUSH 0.9% 10 ML SYRINGE IVP SCH ×3 (02:57→16:03)
[2022-05-09 05:02] LABS: BASOPHILS % (AUTO) 0.5 %; EOSINOPHILS # (AUTO) 0.2 10^3/uL (0.0-0.7); EOSINOPHILS % (AUTO) 2.3 %; HCT - HEMATOCRIT 33.8 % (37.0-47.0); HGB - HEMOGLOBIN 11.8 g/dL (12.0-16.0); LYMPHOCYTES # (AUTO) 1.1 10^3/uL (1.5-3.5); LYMPHOCYTES % (AUTO) 13.4 %; MEAN CORPUSCULAR HEMOGLOBIN 31.2 pg (27.0-31.0); MEAN CORPUSCULAR HGB CONC 34.9 g/dL (32.0-36.0); MEAN CORPUSCULAR VOLUME 89.4 fL (81.0-99.0); MEAN PLATELET VOLUME 10.8 fL (7.9-10.8); MONOCYTES # (AUTO) 0.8 10^3/uL (0.0-1.0); MONOCYTES % (AUTO) 10.4 %; NEUTROPHILS # (AUTO) 5.7 10^3/uL (1.5-6.6); NEUTROPHILS % (AUTO) 72.6 %; PLT - PLATELET COUNT 169 10^3/uL (130-450); RED BLOOD COUNT 3.78 10^6/uL (4.20-5.40); RED CELL DISTRIBUTION WIDTH 12.6 % (12.0-15.0); WHITE BLOOD COUNT 7.8 x10^3/uL (4.8-10.8)
[2022-05-09 05:19] LABS: CALCIUM 7.9 mg/dL (8.5-10.3); MAGNESIUM 1.8 mg/dL (1.7-2.8); POTASSIUM 3.4 mmol/L (3.5-5.0)
[2022-05-09] MEDS: IPRATROPIUM/ALBUTEROL 3 ML NEB INH SCH ×3 (06:10→19:58)
[2022-05-09] MEDS: ENOXAPARIN 40 MG/0.4 ML SYRINGE SUBQ SCH (08:27)
[2022-05-09] MEDS: PSYLLIUM PACKET PO SCH (08:27)
[2022-05-09] MEDS: ASPIRIN EC 81 MG TABLET PO SCH (08:28)
[2022-05-09] MEDS: ONDANSETRON ODT 4 MG TABLET TL PRN ×2 (08:28→16:55)
[2022-05-09] MEDS: carvediloL 12.5 MG TABLET PO SCH ×2 (08:28→20:39)
[2022-05-09] MEDS: traMADol 50 MG TABLET PO PRN ×3 (08:28→20:39)
[2022-05-09] MEDS: ACETAMINOPHEN 325 MG TABLET PO PRN (11:59)
--- NOTE | 2022-05-09 18:56 | PROVIDER PROGRESS NOTE ---
Assessment/Plan - Problem List (1) Hyponatremia Assessment/Plan: This is likely due to N/V, and decreased PO intake, and from being on Chlorthalidone . Na up to 120 today, which I think has made her less confused Plan: -continue IVF -hold Chlorthalidone -anti-emetics prn -clear liquid diet, advance as tolerated -goal for slow Na correction; monitor Na q12h (2) N/V She claims that she gets nauseated when she is constipated and therefore needs to take a big dose of psyllium every morning, and she got a dose today. But she had no bowel movement today. She was still mildly nauseated after each meal as well, but had been asking for more solid food. Plan: -start scheduled Metamucil -anti-emetics prn -clear liquid diet was advanced as tolerated (3) Orthostatic Hypotension Improved. With a history of frequent falls, orthostatic vital signs were checked and she has significant orthostasis. This is not surprising giving her nausea vomiting and hyponatremia suggesting volume depletion Plan: -continue to hold home medications: Chlorthalidone, Olmesartan d/t low Na -continue home medications: Coreg but with holding parameters -she realizes that she needs help at home, cannot live alone. SW and PT to help determine Dch plan. (4) Frequent Falls This caused a recent R foot fracture, nonoperable. Also has possibly caused LBP with LLE pain Plan: -continue R foot walking boot -F/U with outpatient Ortho -PT/OT -pain meds - cont to check Orthostatic VS -she realizes that she needs help at home, cannot live alone. SW and PT to help determine Dch plan. (5) R foot fracture It is nonoperable and she needs to wear a boot Plan: PT and OT evaluation Pain meds as needed (6) HTN Her supine blood pressure is somewhat high but she is extremely orthostatic today. Plan: We are holding her olmesartan and thiazide diuretic since it is likely causing the hyponatremia Will slowly resume her BP meds but not the thiazide (7) PVD AAA was reported by imaging Plan: We will resume any cardiovascular medications that she is on, like aspirin, after the medication list has been reconciled by pharmacy (8) Anxiety Plan: Anxiolytics PRN Resume any home meds to treat this, after the list is reconciled by pharmacy (9) Hx Lung CA Plan: Continue outpatient F/U - Current Meds Current Meds: Current Medications Generic Name Dose Route Start Last Admin Trade Name Freq PRN Reason Stop Dose Admin Acetaminophen 650 mg 05/07/22 22:53 05/09/22 11:59 Acetaminophen 325 Mg Tablet PO 650 mg Q4HR PRN Administration Pain 1 to 4, or Fever Albuterol/Ipratropium 3 ml 05/08/22 12:02 05/09/22 13:26 Ipratropium/Albuterol 3 Ml Neb INH Not Given RTTID ROMERO Aspirin 81 mg 05/08/22 09:00 05/09/22 08:28 Aspirin Ec 81 Mg Tablet PO 81 mg DAILY ROMERO Administration Carvedilol 6.25 mg 05/08/22 09:00 05/09/22 08:28 Carvedilol 12.5 Mg Tablet PO 6.25 mg BID ROMERO Administration Enoxaparin Sodium 40 mg 05/08/22 09:00 05/09/22 08:27 Enoxaparin 40 Mg/0.4 Ml Syringe SUBQ 40 mg DAILY ROMERO Administration Sodium Chloride 1,000 mls @ 75 mls/hr 05/07/22 23:00 05/09/22 16:03 Normal Saline 0.9% IV 75 mls/hr .[id number] ROMERO Administration Ondansetron HCl 4 mg 05/07/22 22:53 05/09/22 16:55 Ondansetron Odt 4 Mg Tablet TL 4 mg Q6HR PRN Administration Nausea / Vomiting Ondansetron HCl 4 mg 05/07/22 22:53 05/09/22 02:53 Ondansetron 4 Mg/2 Ml Vial IVP 4 mg Q6HR PRN Administration Nausea / Vomiting Psyllium Hydrophilic Mucilloid 1 packet 05/09/22 09:00 05/09/22 08:27 Psyllium Packet PO 1 packet DAILY ROMERO Administration Sodium Chloride 10 ml 05/08/22 01:00 05/09/22 16:03 Sodium Chloride Flush 0.9% 10 Ml Syringe IVP Not Given 0100,0900,1700 ROMERO Tramadol HCl 50 mg 05/07/22 23:03 05/09/22 14:42 Tramadol 50 Mg Tablet PO 50 mg Q6HR PRN Administration PAIN - Lab Result Fish Bone Diagrams: 05/09/22 04:37 05/09/22 16:30 - Additional Planning My Orders: My Active Orders 05/09/22 09:00 Psyllium [Metamucil] 1 packet PO DAILY 05/10/22 05:00 BMP - BASIC METABOLIC PANEL [CHEM] DAILYLAB CBC - COMP BLD CT W/AUTO DIFF [HEME] DAILYLAB 05/11/22 05:00 BMP - BASIC METABOLIC PANEL [CHEM] DAILYLAB CBC - COMP BLD CT W/AUTO DIFF [HEME] DAILYLAB Subjective - Subjective Patient Reports: Nausea (Nausea is up and down today. She was constipated and had no BM.) Objective Vital Signs: Vital Signs - 24 hr 05/08/22 05/08/22 05/09/22 20:00 23:49 06:10 Temperature 36.4 C L Heart Rate 71 66 Heart Rate [ 76 Brachial] Respiratory 18 18 18 Rate Blood Pressure 137/66 H [Left Brachial artery] Blood Pressure [Right Brachial artery] O2 Saturation 98 05/09/22 05/09/22 05/09/22 07:40 08:56 12:27 Temperature 36.4 C L Heart Rate Heart Rate [ 66 67 Brachial] Respiratory 16 20 Rate Blood Pressure [Left Brachial artery] Blood Pressure 164/63 H 105/58 L [Right Brachial artery] O2 Saturation 98 96 05/09/22 05/09/22 13:23 17:00 Temperature 36.8 C 36.2 C L Heart Rate Heart Rate [ 61 Brachial] Respiratory 20 Rate Blood Pressure [Left Brachial artery] Blood Pressure 164/64 H [Right Brachial artery] O2 Saturation 96 Oxygen O2 Source Room air I&O (Last 24 Hrs): Intake and Output Totals x24h 05/07/22 05/08/22 05/09/22 23:59 23:59 23:59 Intake Total 1050 2034.167 2765.0 Output Total 600 950 Balance 1050 3950.994 6233.0 General: Alert, Oriented x3, Other (She is much more alert and not as confused, appears to have a good memory today) HEENT: Mucous membr. moist/pink Neck: Supple Neuro: Alert, Non Focal Cardiovascular: Regular rate, No murmurs Respiratory: No respiratory distress, Breath sounds nml Abdomen: Normal bowel sounds, Soft, No tenderness, Other (Obese with pannus) Extremities: No clubbing, No edema - Results Results: Laboratory Results WBC 7.8 x10^3/uL (4.8-10.8) 05/09/22 04:37 RBC 3.78 10^6/uL (4.20-5.40) L 05/09/22 04:37 Hgb 11.8 g/dL (12.0-16.0) L 05/09/22 04:37 Hct 33.8 % (37.0-47.0) L 05/09/22 04:37 MCV 89.4 fL (81.0-99.0) 05/09/22 04:37 MCH 31.2 pg (27.0-31.0) H 05/09/22 04:37 MCHC 34.9 g/dL (32.0-36.0) 05/09/22 04:37 RDW 12.6 % (12.0-15.0) 05/09/22 04:37 Plt Count 169 10^3/uL (130-450) 05/09/22 04:37 MPV 10.8 fL (7.9-10.8) 05/09/22 04:37 Neut # (Auto) 5.7 10^3/uL (1.5-6.6) 05/09/22 04:37 Lymph # (Auto) 1.1 10^3/uL (1.5-3.5) L 05/09/22 04:37 [place] # (Auto) 0.8 10^3/uL (0.0-1.0) 05/09/22 04:37 Eos # (Auto) 0.2 10^3/uL (0.0-0.7) 05/09/22 04:37 Baso # (Auto) 0.0 10^3/uL (0.0-0.1) 05/09/22 04:37 Absolute Nucleated RBC 0.00 x10^3/uL 05/09/22 04:37 Nucleated RBC % 0.0 /100WBC 05/09/22 04:37 Sodium 121 mmol/L (135-145) L 05/09/22 16:30 Potassium 3.4 mmol/L (3.5-5.0) L 05/09/22 04:37 Chloride 87 mmol/L (101-111) L 05/09/22 04:37 Carbon Dioxide 24 mmol/L (21-32) 05/09/22 04:37 Anion Gap 7.0 (6-13) 05/09/22 04:37 BUN 14 mg/dL (6-20) 05/09/22 04:37 Creatinine 1.0 mg/dL (0.4-1.0) 05/09/22 04:37 Estimated GFR (MDRD) 54 (>89) L 05/09/22 04:37 Glucose 91 mg/dL (70-100) 05/09/22 04:37 Calcium 7.9 mg/dL (8.5-10.3) L 05/09/22 04:37 Magnesium 1.8 mg/dL (1.7-2.8) 05/09/22 04:37 Total Bilirubin 1.2 mg/dL (0.2-1.0) H 05/08/22 05:50 Direct Bilirubin 0.3 mg/dL (0.1-0.5) 05/08/22 05:50 AST 51 IU/L (10-42) H 05/08/22 05:50 ALT 26 IU/L (10-60) 05/08/22 05:50 Alkaline Phosphatase 55 IU/L (42-121) 05/08/22 05:50 Total Protein 6.3 g/dL (6.7-8.2) L 05/08/22 05:50 Albumin 3.6 g/dL (3.2-5.5) 05/08/22 05:50 Globulin 2.7 g/dL (2.1-4.2) 05/08/22 05:50 Albumin/Globulin Ratio 1.4 (1.0-2.2) 05/07/22 19:22 Nasal Adenovirus (PCR) NOT DETECTED 05/07/22 21:39 Nasal B. parapertussis DNA (PCR) NOT DETECTED 05/07/22 21:39 Nasal Coronavir 229E PCR NOT DETECTED 05/07/22 21:39 Nasal Coronavir HKU1 PCR NOT DETECTED 05/07/22 21:39 Nasal Coronavir NL63 PCR NOT DETECTED 05/07/22 21:39 Nasal Coronavir OC43 PCR NOT DETECTED 05/07/22 21:39 Nasal Enterovir/Rhinovir PCR NOT DETECTED 05/07/22 21:39 Nasal Influenza B PCR NOT DETECTED 05/07/22 21:39 Nasal Influenza A PCR NOT DETECTED 05/07/22 21:39 Nasal Parainfluen 1 PCR NOT DETECTED 05/07/22 21:39 Nasal Parainfluen 2 PCR NOT DETECTED 05/07/22 21:39 Nasal Parainfluen 3 PCR NOT DETECTED 05/07/22 21:39 Nasal Parainfluen 4 PCR NOT DETECTED 05/07/22 21:39 Nasal RSV (PCR) NOT DETECTED 05/07/22 21:39 Nasal B.pertussis DNA PCR NOT DETECTED 05/07/22 21:39 Nasal C.pneumoniae (PCR) NOT DETECTED 05/07/22 21:39 Ren Human Metapneumo PCR NOT DETECTED 05/07/22 21:39 Nasal M.pneumoniae (PCR) NOT DETECTED 05/07/22 21:39 Nasal SARS-CoV-2 (PCR) NOT DETECTED 05/07/22 21:39 Ethyl Alcohol < 5.0 mg/dL 05/07/22 19:22 - Procedures Procedures: Procedures REPLACEMENT OF LEFT LENS WITH SYNTH SUB, PERC APPROACH (01/21/17) REPLACEMENT OF RIGHT LENS WITH SYNTH SUB, PERC APPROACH (04/08/17)
[2022-05-10] MEDS: traMADol 50 MG TABLET PO PRN ×2 (03:10→16:46)
[2022-05-10] MEDS: ONDANSETRON ODT 4 MG TABLET TL PRN (03:12)
[2022-05-10] MEDS: SODIUM CHLORIDE FLUSH 0.9% 10 ML SYRINGE IVP SCH ×3 (03:13→16:53)
[2022-05-10 05:16] LABS: BASOPHILS # (AUTO) 0.1 10^3/uL (0.0-0.1); BASOPHILS % (AUTO) 0.7 %; EOSINOPHILS # (AUTO) 0.3 10^3/uL (0.0-0.7); EOSINOPHILS % (AUTO) 3.5 %; HCT - HEMATOCRIT 35.7 % (37.0-47.0); HGB - HEMOGLOBIN 12.2 g/dL (12.0-16.0); MEAN CORPUSCULAR HEMOGLOBIN 30.7 pg (27.0-31.0); MEAN CORPUSCULAR HGB CONC 34.2 g/dL (32.0-36.0); MEAN CORPUSCULAR VOLUME 89.9 fL (81.0-99.0); MEAN PLATELET VOLUME 11.4 fL (7.9-10.8); MONOCYTES # (AUTO) 0.7 10^3/uL (0.0-1.0); MONOCYTES % (AUTO) 9.6 %; NEUTROPHILS # (AUTO) 5.4 10^3/uL (1.5-6.6); NEUTROPHILS % (AUTO) 72.1 %; PLT - PLATELET COUNT 184 10^3/uL (130-450); RED BLOOD COUNT 3.97 10^6/uL (4.20-5.40); RED CELL DISTRIBUTION WIDTH 12.7 % (12.0-15.0); WHITE BLOOD COUNT 7.4 x10^3/uL (4.8-10.8)
[2022-05-10 05:20] LABS: CALCIUM 8.3 mg/dL (8.5-10.3); CREATININE 1.1 mg/dL (0.4-1.0); POTASSIUM 3.6 mmol/L (3.5-5.0)
[2022-05-10] MEDS: SODIUM CHLORIDE 0.9% 1,000 ML IV SCH ×2 (06:04→18:50)
[2022-05-10] MEDS: IPRATROPIUM/ALBUTEROL 3 ML NEB INH SCH ×3 (06:30→18:51)
[2022-05-10] MEDS: carvediloL 12.5 MG TABLET PO SCH ×2 (08:28→22:31)
[2022-05-10] MEDS: ASPIRIN EC 81 MG TABLET PO SCH (08:28)
[2022-05-10] MEDS: PSYLLIUM PACKET PO SCH (08:29)
[2022-05-10] MEDS: ENOXAPARIN 40 MG/0.4 ML SYRINGE SUBQ SCH (08:29)
--- NOTE | 2022-05-10 14:45 | PROVIDER PROGRESS NOTE ---
Assessment/Plan - Problem List (1) Hyponatremia Assessment/Plan: This is likely due to N/V, and decreased PO intake, and from being on Chlorthalidone. Cause of N/V is not totally clear. Na up to 127 today, which I can see has made her less confused Plan: -continue IVF -goal for slow Na correction; monitor Na q12h - continue to hold Chlorthalidone, and will stop it at [facility] -anti-emetics prn -clear liquid diet, being advanced as tolerated, but when she is constipated, that makes her nauseated too (2) N/V She claims that she gets nauseated when she is constipated and therefore needs to take a big dose of psyllium every morning, and we ordered that to resume. She was still mildly nauseated after each meal as well, but had been asking for more solid food. As I reviewed her record, it appeared that her pain meds were making her very nauseated. The narcotic was stopped. Plan: -cont scheduled Metamucil -anti-emetics prn -clear liquid diet was advanced as tolerated (3) Orthostatic Hypotension With a history of frequent falls, orthostatic vital signs were checked and she has significant orthostasis. This is not surprising giving her nausea vomiting and hyponatremia suggesting volume depletion Plan: -continue to hold home medications: Chlorthalidone and Olmesartan d/t low Na -continue home medications: Coreg but with holding parameters -she realizes that she needs help at home, cannot live alone. SW and PT to help determine Dch plan. -continue iv fluids -measure orthostatic VS q shift (4) Frequent Falls This caused a recent R foot fracture, nonoperable. Also they may have caused LBP with LLE pain Plan: - PT/OT to continue to work with her - cont to check Orthostatic VS - she realizes that she needs help at home, cannot live alone. SW and PT to help determine Dch plan. (5) R foot fracture It is nonoperable and she needs to wear a boot Plan: PT and OT evaluation Pain meds as needed (6) HTN Her supine blood pressure is somewhat high but she is very orthostatic today. Plan: We are holding her olmesartan and thiazide diuretic since it is likely added to the hyponatremia Will slowly resume her BP meds but not the thiazide (7) Sciatica Today the patient described to me that she has had low back pain radiating down her left leg and severe L foot pain, that was diagnosed as sciatica by her PCP several months ago. She was then sent to orthopedics and the patient claims that the orthopedic provider said "they do not treat sciatica" and voiced her disappointment in being sent to a place that does not "treat sciatica". She was apparently given pain meds for that pain and the right foot fracture pain, and that added to the the excessive nausea and vomiting which led to this hyponatremia. She is requesting an MRI of the lumbar spine, she claims that orthopedics did not want to do it until she first completed what ever orders they gave her (? Outpatient PT and pain meds). Plan: I have reviewed the records in [facility] and I do not see any orthopedic clinic notes. Will request orthopedic clinic notes when the clinic is open, which will be Friday 05/12 (today is 05/10/2022 and tomorrow at 05/11/2022 is also a holiday). Will determine if an MRI is warranted, I told the patient. Also, the schedule of the Orthopedist and his PA is that they are not available until May 25, so no consult for recommendations is possible until then (8) PVD AAA was reported by imaging Plan: We will resume any cardiovascular medications that she is on, like aspirin, after the medication list has been reconciled by pharmacy (9) Anxiety Plan: Anxiolytics PRN Resume any home meds to treat this, after the list is reconciled by pharmacy (10) Hx Lung CA Plan: Continue outpatient F/U - Current Meds Current Meds: Current Medications Generic Name Dose Route Start Last Admin Trade Name Freq PRN Reason Stop Dose Admin Acetaminophen 650 mg 05/07/22 22:53 05/09/22 11:59 Acetaminophen 325 Mg Tablet PO 650 mg Q4HR PRN Administration Pain 1 to 4, or Fever Albuterol/Ipratropium 3 ml 05/08/22 12:02 05/10/22 06:30 Ipratropium/Albuterol 3 Ml Neb INH 3 ml RTTID ROMERO Administration Aspirin 81 mg 05/08/22 09:00 05/10/22 08:28 Aspirin Ec 81 Mg Tablet PO 81 mg DAILY ROMERO Administration Carvedilol 6.25 mg 05/08/22 09:00 05/10/22 08:28 Carvedilol 12.5 Mg Tablet PO 6.25 mg BID ROMERO Administration Enoxaparin Sodium 40 mg 05/08/22 09:00 05/10/22 08:29 Enoxaparin 40 Mg/0.4 Ml Syringe SUBQ 40 mg DAILY ROMERO Administration Sodium Chloride 1,000 mls @ 75 mls/hr 05/07/22 23:00 05/10/22 06:04 Normal Saline 0.9% IV 75 mls/hr .[id number] ROMERO Administration Ondansetron HCl 4 mg 05/07/22 22:53 05/10/22 03:12 Ondansetron Odt 4 Mg Tablet TL 4 mg Q6HR PRN Administration Nausea / Vomiting Ondansetron HCl 4 mg 05/07/22 22:53 05/09/22 02:53 Ondansetron 4 Mg/2 Ml Vial IVP 4 mg Q6HR PRN Administration Nausea / Vomiting Psyllium Hydrophilic Mucilloid 1 packet 05/09/22 09:00 05/10/22 08:29 Psyllium Packet PO 1 packet DAILY ROMERO Administration Sodium Chloride 10 ml 05/08/22 01:00 05/10/22 08:30 Sodium Chloride Flush 0.9% 10 Ml Syringe IVP 10 ml 0100,0900,1700 ROMERO Administration Tramadol HCl 50 mg 05/07/22 23:03 05/10/22 03:10 Tramadol 50 Mg Tablet PO 50 mg Q6HR PRN Administration PAIN - Lab Result Fish Bone Diagrams: 05/10/22 04:34 05/10/22 04:34 - Additional Planning My Orders: My Active Orders 05/10/22 16:30 SODIUM [CHEM] Timed 05/11/22 05:00 BMP - BASIC METABOLIC PANEL [CHEM] DAILYLAB CBC - COMP BLD CT W/AUTO DIFF [HEME] DAILYLAB LIVER PANEL [CHEM] DAILYLAB 05/12/22 05:00 LIVER PANEL [CHEM] DAILYLAB Subjective - Subjective Patient Reports: Other (Unchanged: Has up-and-down nausea, up-and-down constipation, continued left foot pain and weakness and is afraid to stand and walk.) Nursing Reports: Other (There has been no PT or OT services yesterday and today since it is the New Year's weekend 05/09 and 05/10.) Objective Vital Signs: Vital Signs - 24 hr 05/09/22 05/09/22 05/09/22 17:00 19:55 20:35 Temperature 36.2 C L Heart Rate 60 Heart Rate [ 61 Brachial] Heart Rate [ 64 Monitoring electrodes] Respiratory 20 18 Rate Blood Pressure 164/64 H [Right Brachial artery] O2 Saturation 96 05/09/22 05/10/22 05/10/22 20:58 00:49 03:11 Temperature 36.2 C L 36.4 C L 36.5 C Heart Rate Heart Rate [ 60 75 72 Brachial] Heart Rate [ Monitoring electrodes] Respiratory 20 18 20 Rate Blood Pressure 124/55 L 152/68 H 158/76 H [Right Brachial artery] O2 Saturation 99 96 94 05/10/22 05/10/22 05/10/22 06:30 08:22 12:45 Temperature 36.7 C 36.1 C L Heart Rate 71 Heart Rate [ 75 87 Brachial] Heart Rate [ Monitoring electrodes] Respiratory 18 18 18 Rate Blood Pressure 167/72 H 149/75 H [Right Brachial artery] O2 Saturation 96 97 Oxygen O2 Source Room air I&O (Last 24 Hrs): Intake and Output Totals x24h 05/08/22 05/09/22 05/10/22 23:59 23:59 23:59 Intake Total 2034.167 3115.0 1700 Output Total 600 950 850 Balance 4573.962 5809.0 850 General: Alert, Oriented x3 HEENT: EOMI Neck: Supple, Other (Obese and cannot evaluate JVP) Neuro: Alert, Non Focal Cardiovascular: Regular rate, No murmurs (Distant heart sounds due to obese) Respiratory: No respiratory distress, Breath sounds nml Abdomen: Normal bowel sounds, Soft, Other (Obese with a pannus) Extremities: No clubbing, No edema - Results Results: Laboratory Results WBC 7.4 x10^3/uL (4.8-10.8) 05/10/22 04:34 RBC 3.97 10^6/uL (4.20-5.40) L 05/10/22 04:34 Hgb 12.2 g/dL (12.0-16.0) 05/10/22 04:34 Hct 35.7 % (37.0-47.0) L 05/10/22 04:34 MCV 89.9 fL (81.0-99.0) 05/10/22 04:34 MCH 30.7 pg (27.0-31.0) 05/10/22 04:34 MCHC 34.2 g/dL (32.0-36.0) 05/10/22 04:34 RDW 12.7 % (12.0-15.0) 05/10/22 04:34 Plt Count 184 10^3/uL (130-450) 05/10/22 04:34 MPV 11.4 fL (7.9-10.8) H 05/10/22 04:34 Neut # (Auto) 5.4 10^3/uL (1.5-6.6) 05/10/22 04:34 Lymph # (Auto) 1.0 10^3/uL (1.5-3.5) L 05/10/22 04:34 Rankin # (Auto) 0.7 10^3/uL (0.0-1.0) 05/10/22 04:34 Eos # (Auto) 0.3 10^3/uL (0.0-0.7) 05/10/22 04:34 Baso # (Auto) 0.1 10^3/uL (0.0-0.1) 05/10/22 04:34 Absolute Nucleated RBC 0.00 x10^3/uL 05/10/22 04:34 Nucleated RBC % 0.0 /100WBC 05/10/22 04:34 Sodium 127 mmol/L (135-145) L 05/10/22 04:34 Potassium 3.6 mmol/L (3.5-5.0) 05/10/22 04:34 Chloride 93 mmol/L (101-111) L 05/10/22 04:34 Carbon Dioxide 26 mmol/L (21-32) 05/10/22 04:34 Anion Gap 8.0 (6-13) 05/10/22 04:34 BUN 14 mg/dL (6-20) 05/10/22 04:34 Creatinine 1.1 mg/dL (0.4-1.0) H 05/10/22 04:34 Estimated GFR (MDRD) 48 (>89) L 05/10/22 04:34 Glucose 102 mg/dL (70-100) H 05/10/22 04:34 Calcium 8.3 mg/dL (8.5-10.3) L 05/10/22 04:34 Magnesium 1.8 mg/dL (1.7-2.8) 05/09/22 04:37 Total Bilirubin 1.2 mg/dL (0.2-1.0) H 05/08/22 05:50 Direct Bilirubin 0.3 mg/dL (0.1-0.5) 05/08/22 05:50 AST 51 IU/L (10-42) H 05/08/22 05:50 ALT 26 IU/L (10-60) 05/08/22 05:50 Alkaline Phosphatase 55 IU/L (42-121) 05/08/22 05:50 Total Protein 6.3 g/dL (6.7-8.2) L 05/08/22 05:50 Albumin 3.6 g/dL (3.2-5.5) 05/08/22 05:50 Globulin 2.7 g/dL (2.1-4.2) 05/08/22 05:50 Albumin/Globulin Ratio 1.4 (1.0-2.2) 05/07/22 19:22 Nasal Adenovirus (PCR) NOT DETECTED 05/07/22 21:39 Nasal B. parapertussis DNA (PCR) NOT DETECTED 05/07/22 21:39 Nasal Coronavir 229E PCR NOT DETECTED 05/07/22 21:39 Nasal Coronavir HKU1 PCR NOT DETECTED 05/07/22 21:39 Nasal Coronavir NL63 PCR NOT DETECTED 05/07/22 21:39 Nasal Coronavir OC43 PCR NOT DETECTED 05/07/22 21:39 Nasal Enterovir/Rhinovir PCR NOT DETECTED 05/07/22 21:39 Nasal Influenza B PCR NOT DETECTED 05/07/22 21:39 Nasal Influenza A PCR NOT DETECTED 05/07/22 21:39 Nasal Parainfluen 1 PCR NOT DETECTED 05/07/22 21:39 Nasal Parainfluen 2 PCR NOT DETECTED 05/07/22 21:39 Nasal Parainfluen 3 PCR NOT DETECTED 05/07/22 21:39 Nasal Parainfluen 4 PCR NOT DETECTED 05/07/22 21:39 Nasal RSV (PCR) NOT DETECTED 05/07/22 21:39 Nasal B.pertussis DNA PCR NOT DETECTED 05/07/22 21:39 Nasal C.pneumoniae (PCR) NOT DETECTED 05/07/22 21:39 Ren Human Metapneumo PCR NOT DETECTED 05/07/22 21:39 Nasal M.pneumoniae (PCR) NOT DETECTED 05/07/22 21:39 Nasal SARS-CoV-2 (PCR) NOT DETECTED 05/07/22 21:39 Ethyl Alcohol < 5.0 mg/dL 05/07/22 19:22 - Procedures Procedures: Procedures REPLACEMENT OF LEFT LENS WITH SYNTH SUB, PERC APPROACH (01/21/17) REPLACEMENT OF RIGHT LENS WITH SYNTH SUB, PERC APPROACH (04/08/17)
[2022-05-10] MEDS: ONDANSETRON 4 MG/2 ML VIAL IVP PRN (16:47)
[2022-05-11] MEDS: traMADol 50 MG TABLET PO PRN ×4 (00:25→23:43)
[2022-05-11] MEDS: ONDANSETRON ODT 4 MG TABLET TL PRN ×4 (00:26→23:45)
[2022-05-11] MEDS: SODIUM CHLORIDE FLUSH 0.9% 10 ML SYRINGE IVP SCH ×4 (01:00→23:43)
[2022-05-11 05:20] LABS: BASOPHILS # (AUTO) 0.1 10^3/uL (0.0-0.1); BASOPHILS % (AUTO) 0.6 %; EOSINOPHILS # (AUTO) 0.3 10^3/uL (0.0-0.7); HCT - HEMATOCRIT 36.9 % (37.0-47.0); HGB - HEMOGLOBIN 12.5 g/dL (12.0-16.0); LYMPHOCYTES # (AUTO) 1.1 10^3/uL (1.5-3.5); LYMPHOCYTES % (AUTO) 13.8 %; MEAN CORPUSCULAR HEMOGLOBIN 31.3 pg (27.0-31.0); MEAN CORPUSCULAR HGB CONC 33.9 g/dL (32.0-36.0); MEAN CORPUSCULAR VOLUME 92.5 fL (81.0-99.0); MEAN PLATELET VOLUME 10.5 fL (7.9-10.8); MONOCYTES # (AUTO) 0.7 10^3/uL (0.0-1.0); MONOCYTES % (AUTO) 8.7 %; NEUTROPHILS # (AUTO) 5.7 10^3/uL (1.5-6.6); NEUTROPHILS % (AUTO) 72.1 %; PLT - PLATELET COUNT 196 10^3/uL (130-450); RED BLOOD COUNT 3.99 10^6/uL (4.20-5.40); WHITE BLOOD COUNT 7.8 x10^3/uL (4.8-10.8)
[2022-05-11 05:37] LABS: ALBUMIN 3.1 g/dL (3.2-5.5); BILIRUBIN,DIRECT 0.1 mg/dL (0.1-0.5); BILIRUBIN,TOTAL 0.7 mg/dL (0.2-1.0); CALCIUM 8.4 mg/dL (8.5-10.3); CREATININE 1.1 mg/dL (0.4-1.0); POTASSIUM 3.7 mmol/L (3.5-5.0); TOTAL PROTEIN 5.7 g/dL (6.7-8.2)
[2022-05-11] MEDS: IPRATROPIUM/ALBUTEROL 3 ML NEB INH SCH ×3 (06:10→17:50)
[2022-05-11] MEDS: ASPIRIN EC 81 MG TABLET PO SCH (08:33)
[2022-05-11] MEDS: ENOXAPARIN 40 MG/0.4 ML SYRINGE SUBQ SCH (08:33)
[2022-05-11] MEDS: PSYLLIUM PACKET PO SCH ×2 (08:33→10:16)
[2022-05-11] MEDS: carvediloL 12.5 MG TABLET PO SCH ×2 (08:33→20:07)
[2022-05-11] MEDS ORDERED: hydrALAZINE 10 MG TABLET PO ONE (09:00)
[2022-05-11] MEDS: LOSARTAN 50 MG TABLET PO SCH (10:11)
[2022-05-11] MEDS ORDERED: hydrALAZINE INJ 20 MG/ML VIAL IVP PRN (18:20)
--- NOTE | 2022-05-11 19:33 | PROVIDER PROGRESS NOTE ---
Assessment/Plan - Problem List (1) Hyponatremia Assessment/Plan: This is likely due to N/V, and decreased PO intake, and from being on Chlorthalidone. Cause of N/V is not totally clear. Na up to 132 today, which I can see has made her less confused Plan: -slowing iv fluids, but cont given the nausea -continue to hold Chlorthalidone, and will stop it at [facility] -anti-emetics prn -clear liquid diet, being advanced as tolerated, but when she is constipated, that makes her nauseated too (2) N/V She claims that she gets nauseated when she is constipated and therefore needs to take a big dose of psyllium every morning, and we ordered that to resume. She was still mildly nauseated after each meal as well, but had been asking for more solid food. As I reviewed her record, it appeared that her pain meds were making her very nauseated. The narcotic was stopped. She is again very nauseated today. Plan: -cont scheduled Metamucil -anti-emetics prn -clear liquid diet was advanced as tolerated (3) Orthostatic Hypotension With a history of frequent falls, orthostatic vital signs were checked and she has significant orthostasis. This is not surprising giving her nausea vomiting and hyponatremia suggesting volume depletion Plan: -continue to hold home medication Chlorthalidone -continue home medications: Coreg and ARB but with holding parameters -she realizes that she needs help at home, cannot live alone. SW and PT to help determine Dch plan. -continue iv fluids -measure orthostatic VS q shift (4) Frequent Falls This caused a recent R foot fracture, nonoperable. Also they may have caused LBP with LLE pain Plan: - PT/OT to continue to work with her - cont to check Orthostatic VS - she realizes that she needs help at home, cannot live alone. SW and PT to help determine Dch plan. (5) R foot fracture It is nonoperable and she needs to wear a boot Plan: PT and OT evaluation Pain meds as needed (6) HTN Her supine blood pressure is somewhat high but she is very orthostatic today. Plan: We are holding her olmesartan and thiazide diuretic since it is likely added to the hyponatremia Will slowly resume her BP meds but not the thiazide (7) Sciatica The patient described to me that she has had low back pain radiating down her left leg and severe L foot pain, that was diagnosed as sciatica by her PCP several months ago. She was then sent to orthopedics and the patient claims that the orthopedic provider said "they do not treat sciatica" and voiced her disappointment in being sent to a place that does not "treat sciatica". She was apparently given pain meds for that pain and the right foot fracture pain, and that added to the the excessive nausea and vomiting which led to this hyponatremia. She is requesting an MRI of the lumbar spine, she claims that orthopedics did not want to do it until she first completed what ever orders they gave her (? Outpatient PT and pain meds). Plan: I have reviewed the records in [facility] and I do not see any orthopedic clinic notes. Will request orthopedic clinic notes when the clinic is open, which will be Friday 05/12 (today is 05/11/2022 and is also a holiday). Will determine if an MRI is warranted, I told the patient. Also, the schedule of the Orthopedist and his PA is that they are not available until May 25, so no consult for recommendations is possible until then (8) PVD AAA was reported by imaging Plan: We will resume any cardiovascular medications that she is on, like aspirin, after the medication list has been reconciled by pharmacy (9) Anxiety Plan: Anxiolytics PRN Resume any home meds to treat this, after the list is reconciled by pharmacy (10) Hx Lung CA Plan: Continue outpatient F/U - Current Meds Current Meds: Current Medications Generic Name Dose Route Start Last Admin Trade Name Jimmie PRN Reason Stop Dose Admin Acetaminophen 650 mg 05/07/22 22:53 05/09/22 11:59 Acetaminophen 325 Mg Tablet PO 650 mg Q4HR PRN Administration Pain 1 to 4, or Fever Albuterol/Ipratropium 3 ml 05/08/22 12:02 05/11/22 17:50 Ipratropium/Albuterol 3 Ml Neb INH 3 ml RTTID ROMERO Administration Aspirin 81 mg 05/08/22 09:00 05/11/22 08:33 Aspirin Ec 81 Mg Tablet PO 81 mg DAILY ROMERO Administration Carvedilol 6.25 mg 05/08/22 09:00 05/11/22 08:33 Carvedilol 12.5 Mg Tablet PO 6.25 mg BID ROMERO Administration Enoxaparin Sodium 40 mg 05/08/22 09:00 05/11/22 08:33 Enoxaparin 40 Mg/0.4 Ml Syringe SUBQ 40 mg DAILY ROMERO Administration Losartan Potassium 50 mg 05/11/22 10:00 05/11/22 10:11 Losartan 50 Mg Tablet PO 50 mg DAILY ROMERO Administration Ondansetron HCl 4 mg 05/07/22 22:53 05/11/22 17:15 Ondansetron Odt 4 Mg Tablet TL 4 mg Q6HR PRN Administration Nausea / Vomiting Ondansetron HCl 4 mg 05/07/22 22:53 05/10/22 16:47 Ondansetron 4 Mg/2 Ml Vial IVP 4 mg Q6HR PRN Administration Nausea / Vomiting Psyllium Hydrophilic Mucilloid 1 packet 05/09/22 09:00 05/11/22 10:16 Psyllium Packet PO 1 packet DAILY ROMERO Administration Sodium Chloride 10 ml 05/08/22 01:00 05/11/22 16:49 Sodium Chloride Flush 0.9% 10 Ml Syringe IVP 10 ml 0100,0900,1700 ROMERO Administration Tramadol HCl 50 mg 05/07/22 23:03 05/11/22 17:15 Tramadol 50 Mg Tablet PO 50 mg Q6HR PRN Administration PAIN - Lab Result Fish Bone Diagrams: 05/11/22 04:57 05/11/22 04:57 - Additional Planning My Orders: My Active Orders 05/11/22 10:00 Losartan [Cozaar] 50 mg PO DAILY 05/11/22 18:20 hydrALAZINE INJ [Apresoline Inj] 10 mg IVP DAILY PRN 05/11/22 19:00 Sodium Chloride 0.9% [Normal Saline 0.9%] 1,000 ml IV TKO 05/12/22 05:00 LIVER PANEL [CHEM] DAILYLAB Subjective - Subjective Patient Reports: Pain (Complains of pain in left foot (sciatica pain presumably) and needs the right foot to not be in a boot, to readjust position for the left footpain) Objective Vital Signs: Vital Signs - 24 hr 05/10/22 05/11/22 05/11/22 21:00 00:05 05:00 Temperature 36.5 C 36.4 C L 36.4 C L Heart Rate Heart Rate [ 83 77 75 Brachial] Heart Rate [ Monitoring electrodes] Respiratory 18 19 18 Rate Blood Pressure 160/76 H [Left Brachial artery] Blood Pressure 168/74 H 191/72 H [Right Brachial artery] O2 Saturation 95 100 95 05/11/22 05/11/22 05/11/22 05:15 06:10 08:02 Temperature 36.7 C Heart Rate 72 Heart Rate [ 87 Brachial] Heart Rate [ Monitoring electrodes] Respiratory 18 19 Rate Blood Pressure 197/83 H [Left Brachial artery] Blood Pressure 184/57 H [Right Brachial artery] O2 Saturation 97 05/11/22 05/11/22 05/11/22 08:32 11:20 13:21 Temperature 36.6 C Heart Rate 84 Heart Rate [ 66 Brachial] Heart Rate [ Monitoring electrodes] Respiratory 20 20 Rate Blood Pressure [Left Brachial artery] Blood Pressure 154/112 H 160/70 H [Right Brachial artery] O2 Saturation 95 05/11/22 05/11/22 15:18 17:50 Temperature 36.4 C L Heart Rate 75 Heart Rate [ Brachial] Heart Rate [ 64 Monitoring electrodes] Respiratory 19 20 Rate Blood Pressure [Left Brachial artery] Blood Pressure 182/74 H [Right Brachial artery] O2 Saturation 100 Oxygen O2 Source Room air I&O (Last 24 Hrs): Intake and Output Totals x24h 05/09/22 05/10/22 05/11/22 23:59 23:59 23:59 Intake Total 3115.0 2777.5 1960 Output Total 950 850 875 Balance 2165.0 1927.5 1085 General: Alert, Oriented x3 HEENT: Mucous membr. moist/pink Neck: Supple, No JVD Neuro: Alert, Non Focal Cardiovascular: No murmurs (Distant heart sounds due to large breasts) Respiratory: No respiratory distress, Breath sounds nml Abdomen: Normal bowel sounds, Soft, Other (Obese with a pannus) Extremities: No clubbing, No edema, Other (The right foot is tender from fractures, the left foot has intermittent pain depending on position) - Results Results: Laboratory Results WBC 7.8 x10^3/uL (4.8-10.8) 05/11/22 04:57 RBC 3.99 10^6/uL (4.20-5.40) L 05/11/22 04:57 Hgb 12.5 g/dL (12.0-16.0) 05/11/22 04:57 Hct 36.9 % (37.0-47.0) L 05/11/22 04:57 MCV 92.5 fL (81.0-99.0) 05/11/22 04:57 MCH 31.3 pg (27.0-31.0) H 05/11/22 04:57 MCHC 33.9 g/dL (32.0-36.0) 05/11/22 04:57 RDW 13.0 % (12.0-15.0) 05/11/22 04:57 Plt Count 196 10^3/uL (130-450) 05/11/22 04:57 MPV 10.5 fL (7.9-10.8) 05/11/22 04:57 Neut # (Auto) 5.7 10^3/uL (1.5-6.6) 05/11/22 04:57 Lymph # (Auto) 1.1 10^3/uL (1.5-3.5) L 05/11/22 04:57 Schley # (Auto) 0.7 10^3/uL (0.0-1.0) 05/11/22 04:57 Eos # (Auto) 0.3 10^3/uL (0.0-0.7) 05/11/22 04:57 Baso # (Auto) 0.1 10^3/uL (0.0-0.1) 05/11/22 04:57 Absolute Nucleated RBC 0.00 x10^3/uL 05/11/22 04:57 Nucleated RBC % 0.0 /100WBC 05/11/22 04:57 Sodium 132 mmol/L (135-145) L 05/11/22 04:57 Potassium 3.7 mmol/L (3.5-5.0) 05/11/22 04:57 Chloride 98 mmol/L (101-111) L 05/11/22 04:57 Carbon Dioxide 27 mmol/L (21-32) 05/11/22 04:57 Anion Gap 7.0 (6-13) 05/11/22 04:57 BUN 12 mg/dL (6-20) 05/11/22 04:57 Creatinine 1.1 mg/dL (0.4-1.0) H 05/11/22 04:57 Estimated GFR (MDRD) 48 (>89) L 05/11/22 04:57 Glucose 93 mg/dL (70-100) 05/11/22 04:57 Calcium 8.4 mg/dL (8.5-10.3) L 05/11/22 04:57 Magnesium 1.8 mg/dL (1.7-2.8) 05/09/22 04:37 Total Bilirubin 0.7 mg/dL (0.2-1.0) 05/11/22 04:57 Direct Bilirubin 0.1 mg/dL (0.1-0.5) 05/11/22 04:57 AST 29 IU/L (10-42) 05/11/22 04:57 ALT 24 IU/L (10-60) 05/11/22 04:57 Alkaline Phosphatase 51 IU/L (42-121) 05/11/22 04:57 Total Protein 5.7 g/dL (6.7-8.2) L 05/11/22 04:57 Albumin 3.1 g/dL (3.2-5.5) L 05/11/22 04:57 Globulin 2.6 g/dL (2.1-4.2) 05/11/22 04:57 Albumin/Globulin Ratio 1.4 (1.0-2.2) 05/07/22 19:22 Nasal Adenovirus (PCR) NOT DETECTED 05/07/22 21:39 Nasal B. parapertussis DNA (PCR) NOT DETECTED 05/07/22 21:39 Nasal Coronavir 229E PCR NOT DETECTED 05/07/22 21:39 Nasal Coronavir HKU1 PCR NOT DETECTED 05/07/22 21:39 Nasal Coronavir NL63 PCR NOT DETECTED 05/07/22 21:39 Nasal Coronavir OC43 PCR NOT DETECTED 05/07/22 21:39 Nasal Enterovir/Rhinovir PCR NOT DETECTED 05/07/22 21:39 Nasal Influenza B PCR NOT DETECTED 05/07/22 21:39 Nasal Influenza A PCR NOT DETECTED 05/07/22 21:39 Nasal Parainfluen 1 PCR NOT DETECTED 05/07/22 21:39 Nasal Parainfluen 2 PCR NOT DETECTED 05/07/22 21:39 Nasal Parainfluen 3 PCR NOT DETECTED 05/07/22 21:39 Nasal Parainfluen 4 PCR NOT DETECTED 05/07/22 21:39 Nasal RSV (PCR) NOT DETECTED 05/07/22 21:39 Nasal B.pertussis DNA PCR NOT DETECTED 05/07/22 21:39 Nasal C.pneumoniae (PCR) NOT DETECTED 05/07/22 21:39 Ren Human Metapneumo PCR NOT DETECTED 05/07/22 21:39 Nasal M.pneumoniae (PCR) NOT DETECTED 05/07/22 21:39 Nasal SARS-CoV-2 (PCR) NOT DETECTED 05/07/22 21:39 Ethyl Alcohol < 5.0 mg/dL 05/07/22 19:22 - Procedures Procedures: Procedures REPLACEMENT OF LEFT LENS WITH SYNTH SUB, PERC APPROACH (01/21/17) REPLACEMENT OF RIGHT LENS WITH SYNTH SUB, PERC APPROACH (04/08/17)
[2022-05-11] MEDS: SODIUM CHLORIDE 0.9% 1,000 ML IV SCH (20:02)
[2022-05-11] MEDS: ACETAMINOPHEN 325 MG TABLET PO PRN (20:09)
[2022-05-12] MEDS: traMADol 50 MG TABLET PO PRN ×2 (05:41→16:16)
[2022-05-12] MEDS: ONDANSETRON ODT 4 MG TABLET TL PRN ×2 (05:41→16:16)
[2022-05-12 06:12] LABS: ALBUMIN 3.2 g/dL (3.2-5.5); BILIRUBIN,DIRECT 0.1 mg/dL (0.1-0.5); BILIRUBIN,TOTAL 0.7 mg/dL (0.2-1.0); TOTAL PROTEIN 6.1 g/dL (6.7-8.2)
[2022-05-12] MEDS: IPRATROPIUM/ALBUTEROL 3 ML NEB INH SCH ×3 (07:12→18:04)
[2022-05-12] MEDS: ACETAMINOPHEN 325 MG TABLET PO PRN ×2 (08:27→18:46)
[2022-05-12] MEDS: carvediloL 12.5 MG TABLET PO SCH ×2 (08:27→22:03)
[2022-05-12] MEDS: ENOXAPARIN 40 MG/0.4 ML SYRINGE SUBQ SCH (08:29)
[2022-05-12] MEDS: PSYLLIUM PACKET PO SCH (08:29)
[2022-05-12] MEDS: ASPIRIN EC 81 MG TABLET PO SCH (08:29)
[2022-05-12] MEDS: LOSARTAN 50 MG TABLET PO SCH (08:29)
[2022-05-12] MEDS: SODIUM CHLORIDE FLUSH 0.9% 10 ML SYRINGE IVP SCH ×2 (10:00→18:46)
[2022-05-12 12:20] LABS: BASOPHILS # (AUTO) 0.1 10^3/uL (0.0-0.1); BASOPHILS % (AUTO) 0.7 %; EOSINOPHILS # (AUTO) 0.4 10^3/uL (0.0-0.7); HCT - HEMATOCRIT 40.5 % (37.0-47.0); HGB - HEMOGLOBIN 13.3 g/dL (12.0-16.0); LYMPHOCYTES % (AUTO) 11.5 %; MEAN CORPUSCULAR HEMOGLOBIN 30.4 pg (27.0-31.0); MEAN CORPUSCULAR HGB CONC 32.8 g/dL (32.0-36.0); MEAN CORPUSCULAR VOLUME 92.7 fL (81.0-99.0); MEAN PLATELET VOLUME 10.4 fL (7.9-10.8); MONOCYTES # (AUTO) 0.6 10^3/uL (0.0-1.0); MONOCYTES % (AUTO) 6.8 %; NEUTROPHILS # (AUTO) 6.9 10^3/uL (1.5-6.6); NEUTROPHILS % (AUTO) 76.4 %; PLT - PLATELET COUNT 214 10^3/uL (130-450); RED BLOOD COUNT 4.37 10^6/uL (4.20-5.40); RED CELL DISTRIBUTION WIDTH 13.1 % (12.0-15.0)
[2022-05-12 12:28] LABS: CALCIUM 8.8 mg/dL (8.5-10.3); CREATININE 1.1 mg/dL (0.4-1.0); POTASSIUM 3.5 mmol/L (3.5-5.0)
[2022-05-12] MEDS: polyethylene glycoL 3350 17 GM PACKET PO SCH (14:07)
--- NOTE | 2022-05-12 18:30 | PROVIDER PROGRESS NOTE ---
Subjective - Subjective Pt reports feeling: Improved Subjective: 77 yo F with h/o localized Lung CA in remission, anxiety, frequent Falls, recent nonoperative Right foot fracture, HTN, HLD, PVD admitted w/N/V and hyponatremia. Pt reports she is slowly felling better. She does c/o ongoing pain to her left leg as well as left sided low back pain. She notes she went through PT and it made her sxs worse. She says she had her hip xray'd and it showed no acute findings. She notes the pain has been present for about a month. Her PCP, Dr. Huizar, referred her to ortho, but she can't be seen until June. She is frustrated about not having a dx. She is presently pending SNF placement. Objective - Vital Signs/Intake & Output Vital Signs: Vital Signs x48h Temp Pulse Pulse Pulse Pulse Pulse Resp 05/12/22 18:04 76 18 05/12/22 15:48 36.5 C 82 24 05/12/22 14:27 84 20 05/12/22 13:00 36.3 C L 69 12 05/12/22 10:55 68 64 BP BP BP Pulse Ox 05/12/22 18:04 05/12/22 15:48 153/72 H 97 05/12/22 14:27 05/12/22 13:00 127/79 97 05/12/22 10:55 183/83 H 180/85 H Intake & Output: Intake & Output 05/09/22 05/10/22 05/11/22 05/12/22 23:59 23:59 23:59 23:59 Intake Total 3115.0 2777.5 2256.667 580 Output Total 550 274 4561 1400 Balance 2165.0 1927.5 1181.667 -820 - Objective General Appearance: positive: No acute distress, Alert Eyes Bilateral: positive: Normal inspection Neck: positive: Nml inspection Respiratory: positive: No respiratory distress, Breath sounds nml Cardiovascular: positive: Regular rate & rhythm, No murmur, No gallop Abdomen: positive: Non-tender, No organomegaly, Nml bowel sounds, No distention Skin: positive: Color nml, No rash, Warm, Dry Neurologic/Psychiatric: positive: Oriented x3 - Lab Results Fish Bones: 05/12/22 12:15 05/12/22 12:15 Other Labs: Lab Results x24hrs 05/12/22 05/12/22 05/12/22 Range/Units 12:15 12:15 05:18 WBC 9.0 (4.8-10.8) x10^3/uL RBC 4.37 (4.20-5.40) 10^6/uL Hgb 13.3 (12.0-16.0) g/dL Hct 40.5 (37.0-47.0) % MCV 92.7 (81.0-99.0) fL MCH 30.4 (27.0-31.0) pg MCHC 32.8 (32.0-36.0) g/dL RDW 13.1 (12.0-15.0) % Plt Count 214 (130-450) 10^3/uL MPV 10.4 (7.9-10.8) fL Neut # (Auto) 6.9 H (1.5-6.6) 10^3/uL Lymph # (Auto) 1.0 L (1.5-3.5) 10^3/uL [place] # (Auto) 0.6 (0.0-1.0) 10^3/uL Eos # (Auto) 0.4 (0.0-0.7) 10^3/uL Baso # (Auto) 0.1 (0.0-0.1) 10^3/uL Absolute Nucleated RBC 0.00 x10^3/uL Nucleated RBC % 0.0 /100WBC Sodium 130 L (135-145) mmol/L Potassium 3.5 (3.5-5.0) mmol/L Chloride 92 L (101-111) mmol/L Carbon Dioxide 28 (21-32) mmol/L Anion Gap 10.0 (6-13) BUN 13 (6-20) mg/dL Creatinine 1.1 H (0.4-1.0) mg/dL Estimated GFR (MDRD) 48 L (>89) Glucose 101 H (70-100) mg/dL Calcium 8.8 (8.5-10.3) mg/dL Total Bilirubin 0.7 (0.2-1.0) mg/dL Direct Bilirubin 0.1 (0.1-0.5) mg/dL AST 29 (10-42) IU/L ALT 26 (10-60) IU/L Alkaline Phosphatase 55 (42-121) IU/L Total Protein 6.1 L (6.7-8.2) g/dL Albumin 3.2 (3.2-5.5) g/dL Globulin 2.9 (2.1-4.2) g/dL Assessment/Plan - Problem List (1) Hyponatremia Impression: Up from 112 on admit to 130 today. Down slightly from 132 yesterday. Overall, she is clinically improved. Her oral intake is improved. Fluids are currently running at TKO. Would consider SL IV if sodium is decreasing again tomorrow. (2) Pain in extremity Impression: We discussed that once she is discharged, she can seek outpatient MRI for further evaluation. Continue working on mobilizing. Continues in a walking boot for her right foot fracture as well. Qualifiers: Extremity pain location: lower leg Laterality: left Qualified Code(s): M79.662 - Pain in left lower leg (3) Vomiting Impression: Now resolved. (4) Lung cancer Impression: Reportedly in remission. (7) On deep vein thrombosis (DVT) prophylaxis Impression: Continue Lovenox
[2022-05-12] MEDS: SODIUM CHLORIDE 0.9% 1,000 ML IV SCH (22:02)
[2022-05-13] MEDS: SODIUM CHLORIDE FLUSH 0.9% 10 ML SYRINGE IVP SCH ×2 (00:17→11:09)
[2022-05-13] MEDS: ONDANSETRON ODT 4 MG TABLET TL PRN (00:19)
[2022-05-13] MEDS: traMADol 50 MG TABLET PO PRN ×3 (00:19→15:00)
[2022-05-13] MEDS: ACETAMINOPHEN 325 MG TABLET PO PRN ×2 (02:12→10:53)
[2022-05-13] MEDS: hydrOXYzine PAMOATE 25 MG CAPSULE PO PRN ×2 (04:06→10:53)
[2022-05-13 05:53] LABS: CALCIUM 8.8 mg/dL (8.5-10.3); POTASSIUM 3.9 mmol/L (3.5-5.0)
[2022-05-13] MEDS: LOSARTAN 50 MG TABLET PO SCH (08:52)
[2022-05-13] MEDS: ASPIRIN EC 81 MG TABLET PO SCH (08:52)
[2022-05-13] MEDS: ENOXAPARIN 40 MG/0.4 ML SYRINGE SUBQ SCH (08:53)
[2022-05-13] MEDS: carvediloL 12.5 MG TABLET PO SCH (08:53)
[2022-05-13] MEDS: polyethylene glycoL 3350 17 GM PACKET PO SCH (08:53)
[2022-05-13] MEDS: ONDANSETRON 4 MG/2 ML VIAL IVP PRN (08:54)
[2022-05-13] MEDS ORDERED: DOCUSATE SODIUM 250 MG CAPSULE PO SCH (09:00)
[2022-05-13] MEDS ORDERED: SENNA 8.6 MG TABLET PO SCH (09:00)
[2022-05-13] MEDS: IPRATROPIUM/ALBUTEROL 3 ML NEB INH SCH (09:20)
[2022-05-13] MEDS: PSYLLIUM PACKET PO SCH (10:52)
--- NOTE | 2022-05-13 11:55 | Discharge Plan ---
Discharge Plan for SNF / [facility] - Discharge Plan And Transition Orders Problem Reviewed?: Yes Disposition: 01 Home, Self Care Condition: Fair Allergies and Adverse Reactions: Allergies Allergy/AdvReac Type Severity Reaction Status Date / Time No Known Drug Allergies Allergy Verified 05/04/22 00:15 Health Concerns: This is a 77-year-old with localized lung cancer in remission, anxiety that is definitely present, history of frequent falls, and recent nonoperable fracture of her right foot, hypertension, hyperlipidemia, peripheral vascular disease who presented to the emergency room with 3 weeks history of nausea and vomiting. She is also very unhappy because she has had low back pain with left lower extremity sciatica for a month. In the outpatient setting, it is taking a very long time to even get an orthopedic referral. She does not have a diagnosis yet and it weighs on her heavily and contributes to her anxiety. She has been given multiple pain medications for her low back pain and this has been causing her to have nausea. She was not eating very well and then started developing nausea and vomiting. No abdominal pain. No urgency, frequency. For constipation she was taking fiber supplements on top of this. Finally she became so weak that she fell out of her bed a week ago. She went to the ER where she was diagnosed with a right ankle fracture. Ortho said its not operable and a walking boot was placed. She was sent home. She finally called EMS with all of these complaints. She just felt "unsafe at home, I am falling too much and throwing up". Her vitals and blood pressure were normal in the ER. She has a baseline creatinine of 0.9 and she was 1.1. Baseline sodium is 138 and she was 112. Treatment consisted of IVF and prompting po intake. Antiemetics. Nausea and vo miting have resolved. Physical therapy is seeing her and says that she is unstable on her feet. While she is able to weight-bear, and take off the boot at night when she goes to bed, she is not able to take care of her self as she lives alone. She also has problems with problem solving, attention is very diverted at times, and anxiety can prohibit her from proceeding logically. As such she is being transitioned to halfway facility for temporary rehab. Then to return home to independent living. During her stay CT of the abdomen was done for her nausea vomiting and abdominal pain. Her aorta measures 4.4 cm. This is increased from 2.9 cm in 2020. Significant atherosclerotic calcifications are present. Normalization of blood pressure, hyperlipidemia management, should be emphasized. She has a miscellaneous finding of right fat-containing ventral hernia without evidence of incarceration or strangulation. Plan of Treatment: Push p.o. fluids to make sure she drinks enough water or fluids. Watch for return of bowel movements to normal without overuse of laxatives. Rehab until the patient is less anxious and able to take care of her self at [facility] with transitioning from supine to sitting to standing. Safe use of any durable medical equipment. Ability to dress herself and feed herself without assist. And appropriate use of her boot Care Goals: Care goal is to get her home safely. She was then need to follow-up with her low back pain and probable sciatica in the outpatient setting. Keep your orthopedic appointment for the foot fracture and low back pain Assessment: Patient is alert, oriented, understands care plan, fretful and anxious. But she says that she will follow through - SNF / [facility] Transition Orders Admit to (Facility): [facility] Under the care of (Name): Dr. Sandy Huizar Discharge Diagnosis: 1. Symptomatic hyponatremia 2. Nausea and vomiting 3. Frequent falls 4. Right foot fracture, follow-up visit 5. Low back pain with sciatica 6. Hypertension 7. Hyperlipidemia 8. Peripheral vascular disease 9. Lung cancer in remission 10. Generalized anxiety 11. Abdominal aortic aneurysm Medicare Certification Statement: I certify that [facility] halfway care is medically necessary on a continuing basis for any of the conditions for which she/he is receiving care during hospitalization. Notify PCP of admission and forward orders to primary provider for signature. Weight on admission and: Weekly Other Notification Orders: Call PCP immediately if patient develops dyspnea, chest pain/tightness or edema. House Bowel Program: Yes Additional Bowel Program Orders: If no BM after 2 days, nurse may give M.O.M. 30ml PO PRN and/or ducolax Supp 1 AK and/or RON 250mg P.O., and/or senna 1-2 tabs PO. On day 3 nurse may give repeat above order until residents constipation is resolved. Annual Influenza Vaccine (between Jan 08 and August 07): Yes Two-step PPD per [facility] [id number] or approved exception documents: Yes Medication Orders: PLEASE REFER TO THE DISCHARGE MEDICATION LIST. - Diet Type: No added sugar Texture: Regular Liquids: Thin May have monthly special meal: Yes - Therapies | Activity Therapy: Evaluation | Treat if indicated: PT, OT Rehabilitation Potential: Maximize functional status, Return to independent living Activity: Activity as Tolerated
--- NOTE | 2022-05-13 12:12 | DISCHARGE SUMMARY ---
"Discharge Summary Admit Date: 05/07/22 Discharge Date: 05/13/22 Discharging Provider: Orly Powell MD Primary Care Provider: Sandy Hiuzar MD Code Status: Attempt Resuscitation Condition at Discharge: Fair Discharge Disposition: 01 Home, Self Care - DIAGNOSES Discharge Diagnoses with Status of Each Condition: 1. Symptomatic hyponatremia 2. Nausea and vomiting 3. Frequent falls 4. Orthostatic hypotension 5. Right foot fracture, follow-up visit 6. Low back pain with sciatica 7. Hypertension 8. Peripheral vascular disease 9. Lung cancer in remission 10. Generalized anxiety 11. Abdominal aortic aneurysm - HPI History of Present Illness: Per Telemed H&P: 77 yo F with h/o localized Lung CA in remission, anxiety, frequent Falls, recent fracture nonoperable, HTN, HLD, PVD presented to the ER with c/o 3 week h/o N/V. Pt has had LBP with LLE pain x 1 month. She has been given multiple pain medications for this and these have been causing her to have nausea. She has not eaten well d/t N/V x 3 weeks. +subjective F/C. No abdo pain. No dysuria. She has constipation, for which she takes fiber supplements. +increasing weakness. Last week, pt had a fall from slipping out of her bed, forward to the ground. She had R ankle discoloration, so came to ER. Pt dx'd with R ankle fracture, Ortho said that it was nonoperable and walking boot was placed. In the ER, Xray: 4.4 cm AAA, Na 112, Mg 1.6, Bili 1.4, WBC 15.3. Pt was given 1L NS bolus in the ER. - Past Medical History Cardiovascular: reports: Hypertension, High cholesterol, Peripheral Vascular Disease Respiratory: reports: Asthma, Sleep apnea Endocrine/Autoimmune: reports: None GI: reports: None : reports: None HEENT: reports: None Psych: reports: Anxiety Musculoskeletal: reports: Osteoarthritis, Chronic back pain Derm: reports: None MRSA Hx?: No - Past Surgical History General: reports: Colonoscopy /VOCATIONAL REHABILITATION CONSULTANT: reports: Tubal ligation HEENT: reports: Cataracts - CONSULTS | PROCEDURES Procedures: April 28 foot x-ray done to compare to previous fracture from April 20. The Lisfranc fractures of the base of the second, third and fourth metatarsals are without dislocation. Head CT is with no acute intracranial process. Moderate atrophy and chronic microvascular ischemic changes. Abdomen pelvis CT has lung bases that are clear. Solid organs are unremarkable. No hydronephrosis. Simple scattered right renal cyst. Peritoneum and bowel without any acute findings. No worrisome chronic findings. Aorta measured aneurysmally at 4.4 cm. This is increased from 2.9 cm in 2020. Significant atherosclerotic calcifications present. A right fat-containing ventral hernia without evidence of incarceration or strangulation seen. Close interval imaging and follow-up was recommended. - HOSPITAL COURSE Hospital Course: The patient received antiemetics and hydration. Hydration went slowly in order to avoid side effects of the rapid treatment of hyponatremia. We felt that her hyponatremia was due to her nausea vomiting and decreased p.o. intake as well as being on chlorthalidone. Once her sodium was up to 120 she was much less confused. She explained to us that she gets very nauseated when she gets constipated. When she gets constipated she takes a big dose of 5 psyllium every morning. Because of her history of falls, orthostatic vital signs were checked and she has significant orthostasis. Most of her blood pressure medicines were held during her stay. As such she did not get her chlorthalidone and olmesartan. Coreg was given but with holding parameters. She was very anxious, lost track of many conversations, and needed quite a bit of gentle prompting. Physical therapy and Occupational Therapy worked with her. Her main concerns, when she was less confused, was her right foot fracture causing her discomfort. She is in a walking boot and she will be seeing orthopedics in the outpatient setting. She is impatient that she can see orthopedics right now. She is also been having low back pain with left leg sciatica that is impeding her ambulation. Again she is impatient that this is being addressed in the outpatient setting. We did explain to her why it is not addressed on the inpatient side. Once blood pressure normalized and she was no longer orthostatic, was having an adequate p.o. intake, and sodium had come to the 130s, we felt she was stable for discharge. Physical therapy recommended correction facility for improving mobility, strength, and improving her coping skills with occupational therapy. She was discharged in stable condition, temperature 36.4. Heart rate 75. Supine blood pressure 183/76. Sitting blood pressure 196/97. It is time to resume her normal blood pressure medications. Respirations are 20. 96% on room air. She is 5 feet 4 inches tall. Weight 101.5 kg. She is alert, oriented to person place and time female. Although she hears me and follows what I am saying, her anxiety really does not allow her to process well. And I wonder if there is early dementia. Neck is without JVD. Lungs are clear. Regular rate and rhythm. Telemetry shows sinus with first-degree block. Abdomen is soft, nontender. Normal bowel sounds. Last bowel movement was May 09. She is occasionally incontinent of urine. Has a pure wick at times. She is able to sit up at the bedside, dangle, then stand to ambulate. The right foot is in a boot. She says it hurts when she weight-bear. She has mild pitting edema adia und both ankles. No focal deficits. Greater than 30 minutes spent coordinating discharge - ALLERGIES Allergies/Adverse Reactions: Allergies Allergy/AdvReac Type Severity Reaction Status Date / Time No Known Drug Allergies Allergy Verified 05/04/22 00:15 - MEDICATIONS Home Medications: Ambulatory Orders Medication Instructions Recorded Confirmed Aspirin [Aspir-Low] 81 mg PO DAILY 09/11/15 05/07/22 Olmesartan Medoxomil [Benicar] 20 mg PO QPM 12/23/20 05/07/22 Albuterol Sulf [Ventolin Hfa 2 puffs PO Q4H PRN 05/08/22 05/08/22 Inhaler] Clobetasol Propionate/Emoll 1 appful TP Q7D 05/08/22 05/08/22 [Olux-E 0.05% Foam] Acetaminophen [Tylenol] 650 mg PO Q4HR PRN tab 05/13/22 Chlorthalidone 25 mg PO HS #0 05/13/22 05/08/22 Ondansetron Odt [Zofran Odt] 4 mg TL Q6HR PRN tab 05/13/22 Psyllium Husk [Metamucil] 4.5 gm PO TID #0 05/13/22 05/08/22 carvediloL [Coreg] 6.25 mg PO BID #0 05/13/22 05/07/22 hydrOXYzine PAMOATE [Vistaril] 25 mg PO Q6HR PRN cap 05/13/22 traMADol [Ultram] 50 mg PO Q6HR PRN tab 05/13/22 - LABS Result Diagrams: 05/12/22 12:15 05/13/22 05:12"
[2022-05-13 14:05] VITALS: BP 158/77
== END 2022-05-13 15:15 | DRG 641 ==
LOC: EDUNIT# → ED 18:54 → MS2 22:51
PROVIDERS: ADMIT Internal Medicine; ATTEND Specialist
DX: E87.1 Hypo-osmolality and hyponatremia (principal); R41.0 Disorientation, unspecified; R11.2 Nausea with vomiting, unspecified; Z91.81 History of falling; I95.1 Orthostatic hypotension; E83.42 Hypomagnesemia; M54.42 Lumbago with sciatica, left side; I73.9 Peripheral vascular disease, unspecified; I10 Essential (primary) hypertension; F41.9 Anxiety disorder, unspecified; Z85.118 Personal history of other malignant neoplasm of bronchus and lung; J45.909 Unspecified asthma, uncomplicated; Z87.891 Personal history of nicotine dependence; S92.324A Nondisplaced fracture of second metatarsal bone, right foot, initial encounter for closed fracture; S92.334A Nondisplaced fracture of third metatarsal bone, right foot, initial encounter for closed fracture; S92.344A Nondisplaced fracture of fourth metatarsal bone, right foot, initial encounter for closed fracture; S92.321A Displaced fracture of second metatarsal bone, right foot, initial encounter for closed fracture; S92.331A Displaced fracture of third metatarsal bone, right foot, initial encounter for closed fracture; S92.341A Displaced fracture of fourth metatarsal bone, right foot, initial encounter for closed fracture; X58.XXXA Exposure to other specified factors, initial encounter; T50.2X5A Adverse effect of carbonic-anhydrase inhibitors, benzothiadiazides and other diuretics, initial encounter; I71.40 Abdominal aortic aneurysm, without rupture, unspecified; E66.9 Obesity, unspecified; Z68.39 Body mass index [BMI] 39.0-39.9, adult; E78.00 Pure hypercholesterolemia, unspecified; G47.30 Sleep apnea, unspecified; I44.0 Atrioventricular block, first degree; K59.00 Constipation, unspecified; Z20.822 Contact with and (suspected) exposure to COVID-19
CPT/HCPCS: 36415; 70450; 73630; 74177; 80048; 80053; 80076; 83735; 84295; 85025; 87633; 87635; 93005; 94640; 96361; 96365; 96375; 97162; 97166; 97530; 99283; 99284; 99285; A9270; G0480; J1650; Q0162; Q9967; 80320

== ENCOUNTER 2022-05-25 08:36 | Outpatient (CLI) | payer MEDICARE, OTHER ==
--- NOTE | 2022-05-25 12:50 | CT Report ---
PROCEDURE: LUMBAR SPINE WO INDICATIONS: LOW BACK PAIN TECHNIQUE: Noncontrast 3 mm thick sections acquired from the T12 level to the sacrum. Sagittal and coronal refo rmats were constructed. For radiation dose reduction, the following was used: automated exposure co ntrol, adjustment of mA and/or kV according to patient size. COMPARISON: Correlation is made with abdomen pelvis CT, 05/07/2022. FINDINGS: Image quality: Excellent. Bones: No acute vertebral body compression fractures. No suspicious lytic or blastic bony lesions. Central spinal caliber is of normal overall caliber. Mild dextroconvex scoliotic curvature is seen. There is minimal anterolisthesis seen at the L4-L5 lev el. No associated pars defects are seen. T12-L1: Normal in appearance. L1-L2: Normal in appearance. L2-L3: The disc height is well-preserved. Moderate disc bulge is seen at this level. Mild facet hypertrophy is seen. Moderate bilateral neural foraminal narrowing is seen. Mild to moderate cent ral canal narrowing is seen. L3-L4: The disc height is well-preserved. Mild to moderate disc bulge is seen, which is slightly ec centric to the left. Mild facet hypertrophy is seen. There is moderate right-sided and minimal left -sided neuroforaminal narrowing. Mild central canal narrowing is seen. L4-L5: Mild loss of disc height is seen. Mild to moderate disc bulge is seen, with a central/left d isc protrusion. At least moderate facet hypertrophy can be seen. There is at least moderate bilateral neuroforaminal narrowing seen. Moderate central canal narrowing is seen. L5-S1: At least moderate loss of disc height is seen. Vacuum disc phenomenon is seen at this level . Endplate irregularity and sclerosis can be seen. Posteriorly directed endplate osteophytes can be seen within both foraminal regions. Mild facet hypertrophy is seen. There is moderate to severe rig ht-sided and at least moderate left-sided neuroforaminal narrowing. No central canal narrowing is see n. Soft tissues: No retroperitoneal masses or hematomas. The aorta is aneurysmal, measuring 4.4 cm AP. Atherosclerotic calcification is seen. Calcified granulomas can be seen within the spleen. IMPRESSION: Focal lower lumbar spine degenerative changes are seen. If it would be helpful for clinical management decision making, please consider a dedicated lumbar MR I for further evaluation (assuming that there is no contraindication). Additional findings: Stable abdominal aortic aneurysm Prior granulomatous exposure. Reviewed by: Greg Lopez MD on 05/25/2022 11:49 AM [facility] Approved by: Greg Lopez MD on 05/25/2022 11:49 AM [facility] Station ID: [id number]
== END 2022-05-25 08:37 | disposition home or self-care (01) ==
LOC: DI 08:36
PROVIDERS: ATTEND Internal Medicine
DX: M51.36 Other intervertebral disc degeneration, lumbar region (principal); M48.061 Spinal stenosis, lumbar region without neurogenic claudication; M47.816 Spondylosis without myelopathy or radiculopathy, lumbar region; M51.37 Other intervertebral disc degeneration, lumbosacral region; M48.07 Spinal stenosis, lumbosacral region; M47.817 Spondylosis without myelopathy or radiculopathy, lumbosacral region

== ENCOUNTER 2022-06-09 15:58 | Outpatient (CLI) | payer MEDICARE, OTHER ==
[2022-06-09 16:11] LABS: BASOPHILS % (AUTO) 0.4 %; EOSINOPHILS # (AUTO) 0.4 10^3/uL (0.0-0.7); EOSINOPHILS % (AUTO) 4.2 %; HCT - HEMATOCRIT 36.9 % (37.0-47.0); HGB - HEMOGLOBIN 11.7 g/dL (12.0-16.0); LYMPHOCYTES # (AUTO) 1.2 10^3/uL (1.5-3.5); LYMPHOCYTES % (AUTO) 12.4 %; MEAN CORPUSCULAR HEMOGLOBIN 30.7 pg (27.0-31.0); MEAN CORPUSCULAR HGB CONC 31.7 g/dL (32.0-36.0); MEAN CORPUSCULAR VOLUME 96.9 fL (81.0-99.0); MEAN PLATELET VOLUME 10.9 fL (7.9-10.8); MONOCYTES # (AUTO) 0.9 10^3/uL (0.0-1.0); MONOCYTES % (AUTO) 9.6 %; NEUTROPHILS # (AUTO) 6.7 10^3/uL (1.5-6.6); NEUTROPHILS % (AUTO) 72.4 %; PLT - PLATELET COUNT 225 10^3/uL (130-450); RED BLOOD COUNT 3.81 10^6/uL (4.20-5.40); RED CELL DISTRIBUTION WIDTH 13.8 % (12.0-15.0); WHITE BLOOD COUNT 9.3 x10^3/uL (4.8-10.8)
[2022-06-09 16:14] LABS: CALCIUM 8.4 mg/dL (8.5-10.3); CREATININE 1.1 mg/dL (0.4-1.0); POTASSIUM 3.7 mmol/L (3.5-5.0)
== END 2022-06-09 15:59 | disposition home or self-care (01) ==
LOC: LAB.R 15:58
PROVIDERS: ATTEND Student in an Organized Health Care Education/Training Program
DX: E87.1 Hypo-osmolality and hyponatremia (principal); N18.9 Chronic kidney disease, unspecified
CPT/HCPCS: 80048; 85025

== ENCOUNTER 2022-06-18 10:21 | Outpatient (CLI) | payer MEDICARE, OTHER ==
--- NOTE | 2022-06-18 23:24 | XRAY Report ---
PROCEDURE: Foot 3 View RT INDICATIONS: RIGHT FOOT FRACTURE TECHNIQUE: 3 views of the foot were acquired. COMPARISON: 05/07/2022 FINDINGS: Bones: Pes planus deformity. Mild first MTP hallux valgus and degeneration. Fracture deformities at t he bases of the second, third, fourth, and fifth metatarsals. There is progressive impaction, and pos sible new second metatarsal base intra-articular extension of fracture. There is intra-articular exte nsion of the fifth metatarsal fracture. Degenerative joint space loss and subcortical cystic change a t the third TMT and to a lesser extent first and second. Minor lateral subluxation at the second TMT joint. Soft tissues: No tibiotalar joint effusion. Achilles tendon appears normal. Dorsal forefoot soft t issue swelling. IMPRESSION: 1. Slight impaction and further lateral subluxation of the metatarsal base fractures, most pronounced at the second. Findings concerning for ligamentous ligament injury. 2. Degenerative midfoot changes as described without progression. Reviewed by: Gabrielle Garcia MD on 06/18/2022 11:33 PM PST Approved by: Gabrielle Garcia MD on 06/18/2022 11:33 PM PST Station ID: [id number]
== END 2022-06-18 10:22 | disposition home or self-care (01) ==
LOC: DI.WOS 10:21
PROVIDERS: ATTEND Physician Assistant Surgical
DX: S92.321A Displaced fracture of second metatarsal bone, right foot, initial encounter for closed fracture (principal); S92.331A Displaced fracture of third metatarsal bone, right foot, initial encounter for closed fracture; S92.341A Displaced fracture of fourth metatarsal bone, right foot, initial encounter for closed fracture; S92.351A Displaced fracture of fifth metatarsal bone, right foot, initial encounter for closed fracture; M19.071 Primary osteoarthritis, right ankle and foot

== ENCOUNTER 2022-07-14 09:31 | Outpatient (CLI) | payer MEDICARE, OTHER ==
--- NOTE | 2022-07-14 13:57 | XRAY Report ---
PROCEDURE: Lumbar Spine 2 View INDICATIONS: SYNOVIAL CYST OF LUMBAR JOINT TECHNIQUE: 2 views of the lumbar spine were acquired. COMPARISON: CT lumbar spine 05/25/2022 FINDINGS: Bones: 5 [id number] vertebrae are present. There is 6 mm anterolisthesis of L4 on L5. No victoriano olga instability. No vertebral body compression fractures. No suspicious bony lesions. Scattered mod erate to severe degenerative disc space narrowing most severe at L4-5 and L5-S1. Severe foraminal daniel rowing at L5-S1. Soft tissues: Overlying bowel gas pattern is normal. No suspicious soft tissue calcifications. IMPRESSION: Degenerative changes most severe at L5-S1. Reviewed by: Brenda Weaver MD on 07/14/2022 1:55 PM PST Approved by: Brenda Weaver MD on 07/14/2022 1:55 PM PST Station ID: [id number]
== END 2022-07-14 09:32 | disposition home or self-care (01) ==
LOC: DI 09:31
PROVIDERS: ATTEND Neurological Surgery
DX: M71.38 Other bursal cyst, other site (principal); M47.817 Spondylosis without myelopathy or radiculopathy, lumbosacral region; Z01.818 Encounter for other preprocedural examination; I10 Essential (primary) hypertension; C34.90 Malignant neoplasm of unspecified part of unspecified bronchus or lung; G62.9 Polyneuropathy, unspecified; J30.2 Other seasonal allergic rhinitis; Z79.899 Other long term (current) drug therapy; M79.605 Pain in left leg; R09.89 Other specified symptoms and signs involving the circulatory and respiratory systems; M79.602 Pain in left arm; L29.9 Pruritus, unspecified
CPT/HCPCS: 36415; 80048; 81599; 83036; 85025; 85610; 85730; 87640

== ENCOUNTER 2022-07-14 16:35 | Outpatient (CLI) | payer MEDICARE, OTHER ==
[2022-07-14 17:09] LABS: BASOPHILS # (AUTO) 0.1 10^3/uL (0.0-0.1); BASOPHILS % (AUTO) 0.7 %; EOSINOPHILS # (AUTO) 0.3 10^3/uL (0.0-0.7); EOSINOPHILS % (AUTO) 3.9 %; HCT - HEMATOCRIT 42.8 % (37.0-47.0); HGB - HEMOGLOBIN 13.7 g/dL (12.0-16.0); LYMPHOCYTES # (AUTO) 1.6 10^3/uL (1.5-3.5); LYMPHOCYTES % (AUTO) 18.7 %; MEAN CORPUSCULAR HEMOGLOBIN 31.2 pg (27.0-31.0); MEAN CORPUSCULAR VOLUME 97.5 fL (81.0-99.0); MEAN PLATELET VOLUME 10.2 fL (7.9-10.8); MONOCYTES # (AUTO) 0.7 10^3/uL (0.0-1.0); MONOCYTES % (AUTO) 8.1 %; NEUTROPHILS # (AUTO) 5.7 10^3/uL (1.5-6.6); NEUTROPHILS % (AUTO) 68.1 %; PLT - PLATELET COUNT 254 10^3/uL (130-450); RED BLOOD COUNT 4.39 10^6/uL (4.20-5.40); RED CELL DISTRIBUTION WIDTH 14.6 % (12.0-15.0); WHITE BLOOD COUNT 8.4 x10^3/uL (4.8-10.8)
[2022-07-14 17:25] LABS: CALCIUM 9.2 mg/dL (8.5-10.3); POTASSIUM 4.4 mmol/L (3.5-5.0)
[2022-07-14 17:36] LABS: PT - PROTHROMBIN TIME 10.7 secs (9.9-12.6)
[2022-07-14 17:43] LABS: PARTIAL THROMBOPLASTIN TIME 28.7 secs (24.9-33.3)
[2022-07-14 20:58] LABS: ESTIMATED AVERAGE GLUCOSE 108 mg/dL (70-100); HEMOGLOBIN A1c% 5.4 % (4.27-6.07)
== END 2022-07-14 16:36 | disposition home or self-care (01) ==
LOC: LAB 16:35
PROVIDERS: ATTEND Internal Medicine
DX: Z01.818 Encounter for other preprocedural examination (principal); I10 Essential (primary) hypertension; C34.90 Malignant neoplasm of unspecified part of unspecified bronchus or lung; G62.9 Polyneuropathy, unspecified; J30.2 Other seasonal allergic rhinitis; Z79.899 Other long term (current) drug therapy; M79.605 Pain in left leg; R09.89 Other specified symptoms and signs involving the circulatory and respiratory systems; M79.602 Pain in left arm; L29.9 Pruritus, unspecified
CPT/HCPCS: 36415; 80048; 81599; 83036; 85025; 85610; 85730; 87640

== ENCOUNTER 2022-07-21 09:36 | Outpatient (CLI) | payer MEDICARE, OTHER | END 2022-07-21 09:37 | disposition home or self-care (01) | LOC: LAB 09:36 | PROVIDERS: ATTEND Internal Medicine | DX: Z01.818 Encounter for other preprocedural examination (principal); I10 Essential (primary) hypertension; J30.2 Other seasonal allergic rhinitis; Z79.899 Other long term (current) drug therapy | CPT/HCPCS: 87640 ==

== ENCOUNTER 2022-11-20 08:40 | Outpatient (CLI) | payer MEDICARE, OTHER ==
[2022-11-20 09:02] LABS: CALCIUM 9.2 mg/dL (8.5-10.3); CREATININE 1.4 mg/dL (0.4-1.0); POTASSIUM 4.1 mmol/L (3.5-5.0)
--- NOTE | 2022-11-20 12:26 | XRAY Report ---
PROCEDURE: Foot 3 View RT INDICATIONS: FOOT PAIN TECHNIQUE: 3 views of the foot were acquired. COMPARISON: X-ray foot 06/18/2022 FINDINGS: Bones: Healing appearance with sclerosis and minimal residual fracture lucency of second through fif th metatarsal base fractures. Alignment is stable. IP degenerative narrowing is present otherwise mos t severe at the first MTP joint.. No suspicious bony lesions. Soft tissues: No suspicious soft tissue calcifications or masses. IMPRESSION: Progressive healing with sclerosis of minimal residual lucency of second through fifth metatarsal bas e fractures. Reviewed by: Brenda Weaver MD on 11/20/2022 12:24 PM PDT Approved by: Brenda Weaver MD on 11/20/2022 12:24 PM PDT Station ID: [id number]
== END 2022-11-20 08:41 | disposition home or self-care (01) ==
LOC: DI 08:40
PROVIDERS: ATTEND Podiatrist
DX: S92.321D Displaced fracture of second metatarsal bone, right foot, subsequent encounter for fracture with routine healing (principal); S92.331D Displaced fracture of third metatarsal bone, right foot, subsequent encounter for fracture with routine healing; S92.341D Displaced fracture of fourth metatarsal bone, right foot, subsequent encounter for fracture with routine healing; S92.351D Displaced fracture of fifth metatarsal bone, right foot, subsequent encounter for fracture with routine healing; N05.9 Unspecified nephritic syndrome with unspecified morphologic changes
CPT/HCPCS: 36415; 80048

== ENCOUNTER 2022-12-24 11:10 | Outpatient (CLI) | payer MEDICARE, OTHER ==
--- NOTE | 2022-12-25 10:35 | Mammography Report ---
BILATERAL DIGITAL SCREENING MAMMOGRAM 3D/2D: 12/24/2022 CLINICAL: Routine screening. Comparison is made to exams dated: 10/01/2016 mammogram and 11/13/2013 mammogram - [facility]. There are scattered areas of fibroglandular density in both breasts (category b / 25%-50% glandular t issue). There are benign calcifications in both breasts. No significant masses, calcifications, or other findings are seen in either breast. There has been no significant interval change. IMPRESSION: BENIGN There is no mammographic evidence of malignancy. A 1 year screening mammogram is recommended. Based on the Tyrer Cuzick model (a risk assessment model) the patients lifetime risk is 2.3% and her 10 year risk is 0.0%. According to the ACR, ACS, and NCCN guidelines, an annual breast MRI exam noah g with mammogram is recommended if the patients lifetime risk is 20% or greater. This exam was interpreted at Station ID: [id number]. NOTE: For mammograms, a report in lay terms will be sent to the patient. Approximately 15% of breast malignancies will not be visualized mammographically. In the management of a palpable breast mass, a negative mammogram must not discourage biopsy of a clinically suspicious lesion. Electronically Signed By: Gabrielle galvan/nusrat:12/24/2022 16:21:17 letter sent: No_Letter ACR BI-RADS Category 2: Benign Finding(s) 3342F PARENCHYMAL PATTERN: (A) - The breast(s) demonstrate(s) scattered fibroglandular densities. BI-RADS CATEGORY: (2) - 2 Mammogram [id number] 1 year screening LATERALITY: (B)
== END 2022-12-24 11:11 | disposition home or self-care (01) ==
LOC: DI 11:10
DX: Z12.31 Encounter for screening mammogram for malignant neoplasm of breast (principal)

== ENCOUNTER 2022-12-24 11:11 | Outpatient (CLI) | payer MEDICARE, OTHER ==
[2022-12-24 11:34] LABS: CALCIUM 9.4 mg/dL (8.5-10.3); CREATININE 1.1 mg/dL (0.6-1.3); POTASSIUM 4.7 mmol/L (3.5-4.5)
== END 2022-12-24 11:12 | disposition home or self-care (01) ==
LOC: LAB 11:11
PROVIDERS: ATTEND Internal Medicine Nephrology
DX: N05.9 Unspecified nephritic syndrome with unspecified morphologic changes (principal)
CPT/HCPCS: 36415; 80048

== ENCOUNTER 2023-01-21 08:45 | Outpatient (CLI) | payer MEDICARE, OTHER ==
--- NOTE | 2023-01-21 16:27 | Ultrasound Report ---
PROCEDURE: Retroperitoneal Limited INDICATIONS: AAA TECHNIQUE: Real-time scanning was performed of the retroperitoneal organs, with image documentation. COMPARISON: CT abdomen and pelvis, 05/07/2022. FINDINGS: Proximal abdominal aorta: 2.2 x 2.4 cm. Medial abdominal aorta: 5.1 x 4.5 cm. 5.1 cm longitudinally. Distal abdominal aorta: Not visualized. Iliac arteries: Not visualized. IMPRESSION: 1. Limited examination. Distal aorta and iliac arteries are not visualized. 2. Abdominal aortic aneurysm measuring 5.1 x 4.5 cm. This appears slightly enlarged when compared to the last CT dated 04/28 (4.6 x 4.4 cm). Consider vascular surgical consultation. Reviewed by: Tigist Hills MD on 01/21/2023 4:26 PM PDT Approved by: Tigist Hills MD on 01/21/2023 4:26 PM PDT Station ID: [id number]
== END 2023-01-21 08:46 | disposition home or self-care (01) ==
LOC: DI 08:45
PROVIDERS: ATTEND Nurse Practitioner
DX: I71.40 Abdominal aortic aneurysm, without rupture, unspecified (principal)

== ENCOUNTER 2023-02-10 08:13 | Outpatient (CLI) | payer MEDICARE, OTHER ==
[2023-02-10 08:57] LABS: BUN - BLOOD UREA NITROGEN 18 mg/dL (6-20); CALCIUM 9.3 mg/dL (8.5-10.3); CARBON DIOXIDE - CO2 28 mmol/L (21-32); CHLORIDE 103 mmol/L (101-111); CHOL/HDL RATIO 3.3 (<4.4); CHOLESTEROL 169 mg/dL; GFR - MDRD 54 (>89); GLUCOSE 111 mg/dL (74-104); HDL CHOLESTEROL 52 mg/dL; LDL CHOLESTEROL,CALCULATED 101 mg/dL; LDL/HDL RATIO 1.9 (<4.4); POTASSIUM 4.5 mmol/L (3.5-4.5); SODIUM 137 mmol/L (135-145); TRIGLYCERIDES 82 mg/dL (48-352); VLDL CHOLESTEROL 16 mg/dL
== END 2023-02-10 08:14 | disposition home or self-care (01) ==
LOC: LAB 08:13
PROVIDERS: ATTEND Internal Medicine Cardiovascular Disease
DX: I10 Essential (primary) hypertension (principal); I71.41 Pararenal abdominal aortic aneurysm, without rupture
CPT/HCPCS: 36415; 80048; 80061; 83721

== ENCOUNTER 2023-03-11 10:00 | Outpatient (CLI) | payer MEDICARE, OTHER ==
--- NOTE | 2023-03-11 16:48 | XRAY Report ---
PROCEDURE: Hand 3 View RT INDICATIONS: RIGHT HAND PAIN TECHNIQUE: 3 views of the hand(s) acquired. COMPARISON: None. FINDINGS: Bones: No fractures or dislocations. No suspicious bony lesions. Joint space narrowing and periar ticular osteophyte formation at the scaphotrapezial, first, metacarpal joint, as well as the interpha langeal joints of the digits, indicating osteoarthritis. Soft tissues: No suspicious soft tissue calcifications or masses. IMPRESSION: Osteoarthritis. No acute fracture. No osseous lesion. If symptoms and/or clinical suspicion for patho logy continue, further assessment with repeat plain films, or advanced imaging (e.g., CT, MRI, or bon e scan) is recommended for further assessment. Reviewed by: Sheeba Johansen MD on 03/11/2023 4:46 PM PDT Approved by: Sheeba Johansen MD on 03/11/2023 4:46 PM PDT Station ID: [id number]
== END 2023-03-11 23:59 | disposition home or self-care (01) ==
LOC: DI.WOS 10:00
PROVIDERS: ATTEND Physician Assistant Surgical
DX: M19.041 Primary osteoarthritis, right hand (principal)